=== PATIENT | female | born 1955 | race Caucasian/White ===

== ENCOUNTER 2016-04-27 23:37 | Inpatient (IN) | payer OTHER ==
[~2016-04-27] VITALS: Ht 167.6 cm; Wt 116.6 kg
[~2016-04-27 23:37] MED LIST: FERR1TAB44 PO; PANT40TA2 PO; QUET25TA PO
[2016-04-28] VITALS (17 sets, daily range): BP systolic 103–157; BP diastolic 51–89
[2016-04-28 04:04] LABS: BASOPHILS % (AUTO) 0.2 % (0.0-2.0); DIFF TOTAL % 100 %; EOSINOPHILS # (AUTO) 0.2 /CMM (0.0-0.7); EOSINOPHILS % (AUTO) 2.1 % (0.0-6.0); HEMATOCRIT 22 % (33-45); LYMPHOCYTES # (AUTO) 1.6 /CMM (0.8-4.8); LYMPHOCYTES % (AUTO) 14.4 % (20.0-44.0); MEAN CORPUSCULAR HEMOGLOBIN 17 PG (26.0-33.0); MEAN CORPUSCULAR HGB CONC 29 g/dl (31.0-36.0); MEAN CORPUSCULAR VOLUME 60 fL (82-100); MONOCYTES # (AUTO) 1.2 /CMM (0.1-1.30); MONOCYTES % (AUTO) 10.3 % (2.0-12.0); NEUTROPHILS # (AUTO) 8.2 /CMM (1.8-8.9); PLATELET COUNT (AUTO) 297 /CMM (150-450); RED BLOOD CELL COUNT(AUTO) 3.62 MIL/uL (4.0-5.2); WHITE BLOOD COUNT (AUTO) 11.3 K/uL (4.3-11.0)
[2016-04-28 04:14] LABS: HEMOGLOBIN 6.2 g/dL (11.5-14.8)
[2016-04-28 04:17] LABS: CALCIUM, SERUM 7.7 mg/dL (8.5-10.1); CREATININE 0.7 mg/dL (0.6-1.3); POTASSIUM 3.6 mmol/L (3.5-5.1)
[2016-04-28] MEDS ORDERED: PANTOPRAZOLE 80 MG in IV NS 0.9% 500 ML IV ONE (04:30)
[2016-04-28] MEDS ORDERED: PANTOPRAZOLE 80 MG in IV NS 0.9% 100 ML IV ONE (04:30)
[2016-04-28 04:36] LABS: INR 1.04 (0.87-1.13); PROTHROMBIN TIME 11.2 SECS (9.5-12.7)
[2016-04-28] MEDS ORDERED: PANTOPRAZOLE 40 MG VIAL ONE ×2 (04:59→05:05)
[2016-04-28] MEDS ORDERED: IV NS 0.9% 100 ML IV ONE (05:00)
[2016-04-28] MEDS ORDERED: IV SET PRIMARY 1 EA INFUS.SET MC ONE (05:00)
[2016-04-28] MEDS ORDERED: IV NS 0.9% 1,000 ML IV PRN (05:01)
[2016-04-28] MEDS ORDERED: IV SET PRIMARY PUMP SET 1 EA INFUS.SET MC ONE (05:05)
[2016-04-28] MEDS ORDERED: IV NS 0.9% 500 ML IV ONE (05:05)
[2016-04-28] MEDS ORDERED: ZOLPIDEM TARTRATE 5 MG TABLET PO PRN (05:30)
[2016-04-28] MEDS ORDERED: MAG HYDROX/AL HYDROX/SIMETH 30 ML UDC PO PRN (05:30)
[2016-04-28] MEDS ORDERED: MORPHINE SULFATE INJ 2 MG/ML DISP.SYRIN IV PRN (05:30)
[2016-04-28] MEDS ORDERED: Z GUARD REMEDY 2 OZ OINT TP PRN (05:30)
[2016-04-28] MEDS ORDERED: ACETAMINOPHEN 325 MG TABLET PO PRN (05:30)
[2016-04-28] MEDS ORDERED: ONDANSETRON HCL/PF 4 MG/2 ML VIAL IVP PRN (05:30)
[2016-04-28] MEDS ORDERED: HYDROCODONE/APAP 5/325MG 1 EACH TABLET PO PRN (05:30)
[2016-04-28] MEDS ORDERED: MAGNESIUM HYDROXIDE 30 ML UDC PO PRN (05:30)
[2016-04-28 05:35] LABS: IRON, SERUM 13 ug/dl (50-175); PERCENT SATURATION 4 % (14-33); TOTAL IRON BINDING CAPACITY 342 ug/dl (250-450)
[2016-04-28 05:51] LABS: ANISOCYTOSIS 2+; BASOPHILS % (MANUAL) 0 % (0.0-2.0); EOSINOPHILS % (MANUAL) 2 % (0-4); HYPOCHROMASIA 3+; LYMPHOCYTES % (MANUAL) 8 % (16-48); MICROCYTOSIS 3+; OVALOCYTES 1+; PLATELET ESTIMATE ADEQUATE; TEAR DROP CELLS 1+
[2016-04-28 05:52] LABS: STOMATOCYTES 1+
[2016-04-28] MEDS ORDERED: FUROSEMIDE 20 MG/2 ML VIAL IV PRN (08:00)
[2016-04-28] MEDS: PANTOPRAZOLE 40 MG VIAL IV SCH ×2 (08:57→17:28)
[2016-04-28] MEDS: FERROUS SULFATE (325 MG) 325 MG/TAB TABLET PO SCH (08:57)
[2016-04-28] MEDS ORDERED: BLOOD IV SET 1 EA INFUS.SET MC ONE ×3 (09:36→20:57)
[2016-04-28] MEDS ORDERED: IV NS 0.9% 250 ML IV ONE (09:37)
[2016-04-28] MEDS ORDERED: QUETIAPINE FUMARATE 25 MG TABLET PO SCH (22:00)
[2016-04-29] VITALS (14 sets, daily range): BP systolic 108–149; BP diastolic 60–87
[2016-04-29] MEDS ORDERED: IV SET PRIMARY PUMP SET 1 EA INFUS.SET MC ONE (03:59)
[2016-04-29] MEDS ORDERED: SECONDARY IV SET 1 EA INFUS.SET MC ONE (03:59)
[2016-04-29 06:55] LABS: BASOPHILS % (AUTO) 0.2 % (0.0-2.0); DIFF TOTAL % 100 %; EOSINOPHILS # (AUTO) 0.2 /CMM (0.0-0.7); EOSINOPHILS % (AUTO) 2.8 % (0.0-6.0); HEMATOCRIT 30 % (33-45); HEMOGLOBIN 9.1 g/dL (11.5-14.8); LYMPHOCYTES # (AUTO) 1.2 /CMM (0.8-4.8); LYMPHOCYTES % (AUTO) 13.2 % (20.0-44.0); MEAN CORPUSCULAR HEMOGLOBIN 21 PG (26.0-33.0); MEAN CORPUSCULAR HGB CONC 30 g/dl (31.0-36.0); MEAN CORPUSCULAR VOLUME 69 fL (82-100); MONOCYTES # (AUTO) 0.8 /CMM (0.1-1.30); MONOCYTES % (AUTO) 8.6 % (2.0-12.0); NEUTROPHILS # (AUTO) 6.7 /CMM (1.8-8.9); NEUTROPHILS % (AUTO) 75.2 % (43.0-81.0); PLATELET COUNT (AUTO) 241 /CMM (150-450); RED BLOOD CELL COUNT(AUTO) 4.42 MIL/uL (4.0-5.2); WHITE BLOOD COUNT (AUTO) 8.9 K/uL (4.3-11.0)
[2016-04-29 07:08] LABS: CREATININE 0.5 mg/dL (0.6-1.3); PHOSPHORUS 4.5 mg/dL (2.5-4.9); POTASSIUM 3.8 mmol/L (3.5-5.1)
[2016-04-29] MEDS: FERROUS SULFATE (325 MG) 325 MG/TAB TABLET PO SCH (09:00)
[2016-04-29] MEDS: PANTOPRAZOLE 40 MG VIAL IV SCH (10:48)
== END 2016-04-29 15:30 | disposition home or self-care (01) | DRG 253 ==
LOC: ER 23:37 → MED 04-28 05:09 → TELE 04-28 05:19 → MED 04-28 09:36
PROVIDERS: ADMIT Family Medicine; ATTEND Family Medicine
DX: K31.811 Angiodysplasia of stomach and duodenum with bleeding (principal); E44.0 Moderate protein-calorie malnutrition; Z68.41 Body mass index [BMI] 40.0-44.9, adult; D62 Acute posthemorrhagic anemia; E66.01 Morbid (severe) obesity due to excess calories; I10 Essential (primary) hypertension; J44.9 Chronic obstructive pulmonary disease, unspecified; K21.9 Gastro-esophageal reflux disease without esophagitis; D72.829 Elevated white blood cell count, unspecified; F20.0 Paranoid schizophrenia; F31.9 Bipolar disorder, unspecified; M81.0 Age-related osteoporosis without current pathological fracture; Z59.0 Homelessness
CPT/HCPCS: 36415; 80048-TC; 82728-TC; 82746; 83540-TC; 83735-TC; 84100-TC; 85025-TC; 85652-TC; 85730-TC; 86850-TC; 86901; 86921-TC; 87081-TC; A4606; C9113; J7030; J7040; J7050; P9016-BL; P9017-BL; Z7610

== ENCOUNTER 2016-05-13 22:27 | Inpatient (IN) | payer OTHER ==
[~2016-05-13] VITALS: Ht 162.6 cm; Wt 72.6 kg
[2016-05-13 22:55] LABS: BASOPHILS # (AUTO) 0.1 /CMM (0.0-0.2); BASOPHILS % (AUTO) 0.5 % (0.0-2.0); DIFF TOTAL % 100 %; EOSINOPHILS # (AUTO) 0.2 /CMM (0.0-0.7); EOSINOPHILS % (AUTO) 1.3 % (0.0-6.0); HEMATOCRIT 33 % (33-45); MEAN CORPUSCULAR HEMOGLOBIN 20 PG (26.0-33.0); MEAN CORPUSCULAR HGB CONC 30 g/dl (31.0-36.0); MEAN CORPUSCULAR VOLUME 67 fL (82-100); MONOCYTES # (AUTO) 0.7 /CMM (0.1-1.30); MONOCYTES % (AUTO) 5.8 % (2.0-12.0); NEUTROPHILS # (AUTO) 8.7 /CMM (1.8-8.9); NEUTROPHILS % (AUTO) 75.4 % (43.0-81.0); PLATELET COUNT (AUTO) 392 /CMM (150-450); RED BLOOD CELL COUNT(AUTO) 5.02 MIL/uL (4.0-5.2); WHITE BLOOD COUNT (AUTO) 11.5 K/uL (4.3-11.0)
[2016-05-13] MEDS ORDERED: IV NS 0.9% 1,000 ML BAG IV ONE (23:00)
[2016-05-13] MEDS ORDERED: IV NS 0.9% 1,000 ML ONE (23:03)
[2016-05-13] MEDS ORDERED: IV SET PRIMARY 1 EA INFUS.SET MC ONE (23:03)
[2016-05-13 23:06] LABS: ANION GAP 11 (5-14); CALCIUM, SERUM 8.1 mg/dL (8.5-10.1); CARBON DIOXIDE 31 mmol/L (21-32); CHLORIDE 104 mmol/L (98-107); CREATININE 0.6 mg/dL (0.6-1.3); GFR 103 mL/min (>60); GLUCOSE 91 mg/dL (74-106); POTASSIUM 3.6 mmol/L (3.5-5.1); SODIUM SERUM 142 mmol/L (136-145); UREA NITROGEN, BLOOD 12 mg/dL (7-18)
[2016-05-13 23:11] LABS: TROPONIN I < 0.017 ng/mL (0.00-0.056)
[2016-05-13 23:17] LABS: ALANINE AMINOTRANSFERASE 17 U/L (12-78); ALBUMIN 3.8 g/dL (3.4-5.0); ASPARTATE AMINOTRANSFERASE 16 U/L (15-37); BILIRUBIN,DIRECT 0.1 mg/dL (0.0-0.2); BILIRUBIN,TOTAL 0.5 mg/dL (0.2-1.0); INDIRECT BILIRUBIN 0.4 mg/dL (0.0-1.1); INR 0.99 (0.87-1.13); PROTHROMBIN TIME 10.7 SECS (9.5-12.7); TOTAL PROTEIN, SERUM 7.7 g/dL (6.4-8.2)
[2016-05-13] MEDS ORDERED: ASPIRIN 325 MG TABLET PO ONE (23:30)
[2016-05-14] MEDS ORDERED: ASPIRIN 325 MG TABLET ONE (00:04)
[2016-05-14] MEDS ORDERED: ONDANSETRON HCL/PF 4 MG/2 ML VIAL IVP PRN (00:30)
[2016-05-14] MEDS ORDERED: Z GUARD REMEDY 2 OZ OINT TP PRN (00:30)
[2016-05-14] MEDS ORDERED: ACETAMINOPHEN 325 MG TABLET PO PRN (00:30)
[2016-05-14] MEDS ORDERED: MORPHINE SULFATE INJ 2 MG/ML DISP.SYRIN IV PRN (00:30)
[2016-05-14] MEDS ORDERED: MAG HYDROX/AL HYDROX/SIMETH 30 ML UDC PO PRN (00:30)
[2016-05-14] MEDS ORDERED: ZOLPIDEM TARTRATE 5 MG TABLET PO PRN ×2 (00:30→22:00)
[2016-05-14] MEDS ORDERED: LORAZEPAM INJ 2 MG/ML VIAL IV PRN (00:30)
[2016-05-14] MEDS ORDERED: MAGNESIUM HYDROXIDE 30 ML UDC PO PRN (00:30)
[2016-05-14] MEDS ORDERED: HYDROCODONE/APAP 5/325MG 1 EACH TABLET PO PRN (00:30)
[2016-05-14 01:00] VITALS: BP 149/87
[2016-05-14] MEDS ORDERED: IV NS 0.9% 1,000 ML ONE (01:37)
[2016-05-14] MEDS ORDERED: IV SET PRIMARY PUMP SET 1 EA INFUS.SET MC ONE (01:37)
[2016-05-14] MEDS: IV NS 0.9% 1,000 ML IV PRN (01:52)
[2016-05-14 04:00] VITALS: BP 134/78
[2016-05-14] MEDS: PANTOPRAZOLE 40 MG TABLET.DR PO SCH ×3 (07:30→16:39)
[2016-05-14 08:00] VITALS: BP 145/84
[2016-05-14] MEDS: FERROUS SULFATE (325 MG) 325 MG/TAB TABLET PO SCH (08:47)
[2016-05-14 12:00] VITALS: BP 147/76
[2016-05-14] MEDS ORDERED: SECONDARY IV SET 1 EA INFUS.SET MC ONE (14:25)
[2016-05-14] MEDS: SOD FERRIC GLUC 125 MG in IV NS 0.9% 100 ML IV SCH (14:56)
[2016-05-14] MEDS ORDERED: HYDROCODONE BIT/HOMATROPINE 5 ML UDC PO PRN (15:00)
[2016-05-14] MEDS: AZITHROMYCIN 250 MG TABLET PO SCH (15:18)
[2016-05-14 16:00] VITALS: BP 135/72
[2016-05-14 20:00] VITALS: BP 140/69
[2016-05-14] MEDS: QUETIAPINE FUMARATE 25 MG TABLET PO SCH (22:16)
[2016-05-15] VITALS: BP 146/79
[2016-05-15 04:00] VITALS: BP 149/86
[2016-05-15 07:09] LABS: BASOPHILS % (AUTO) 0.1 % (0.0-2.0); DIFF TOTAL % 100 %; EOSINOPHILS # (AUTO) 0.1 /CMM (0.0-0.7); EOSINOPHILS % (AUTO) 1.5 % (0.0-6.0); HEMATOCRIT 28 % (33-45); HEMOGLOBIN 8.5 g/dL (11.5-14.8); LYMPHOCYTES # (AUTO) 1.3 /CMM (0.8-4.8); LYMPHOCYTES % (AUTO) 13.8 % (20.0-44.0); MEAN CORPUSCULAR HEMOGLOBIN 21 PG (26.0-33.0); MEAN CORPUSCULAR HGB CONC 30 g/dl (31.0-36.0); MEAN CORPUSCULAR VOLUME 67 fL (82-100); MONOCYTES # (AUTO) 0.8 /CMM (0.1-1.30); MONOCYTES % (AUTO) 8.2 % (2.0-12.0); NEUTROPHILS # (AUTO) 7.4 /CMM (1.8-8.9); NEUTROPHILS % (AUTO) 76.4 % (43.0-81.0); PLATELET COUNT (AUTO) 270 /CMM (150-450); RED BLOOD CELL COUNT(AUTO) 4.15 MIL/uL (4.0-5.2); WHITE BLOOD COUNT (AUTO) 9.7 K/uL (4.3-11.0)
[2016-05-15 07:31] LABS: CALCIUM, SERUM 7.8 mg/dL (8.5-10.1); CREATININE 0.4 mg/dL (0.6-1.3); PHOSPHORUS 3.8 mg/dL (2.5-4.9); POTASSIUM 3.4 mmol/L (3.5-5.1)
[2016-05-15 08:00] VITALS: BP 170/93
[2016-05-15] MEDS: PANTOPRAZOLE 40 MG TABLET.DR PO SCH ×2 (08:18→17:50)
[2016-05-15] MEDS: FERROUS SULFATE (325 MG) 325 MG/TAB TABLET PO SCH (08:18)
[2016-05-15] MEDS: IV NS 0.9% 1,000 ML IV PRN (09:24)
[2016-05-15 12:00] VITALS: BP 141/80
[2016-05-15] MEDS: LOSARTAN POTASSIUM 50 MG TABLET PO SCH (12:00)
[2016-05-15] MEDS ORDERED: POTASSIUM CHLORIDE 20 MEQ TAB.PRT.SR PO SCH (13:00)
[2016-05-15] MEDS: AZITHROMYCIN 250 MG TABLET PO SCH (14:06)
[2016-05-15 16:00] VITALS: BP 151/87
[2016-05-15] MEDS: SOD FERRIC GLUC 125 MG in IV NS 0.9% 100 ML IV SCH (16:30)
[2016-05-15 20:00] VITALS: BP 133/79
[2016-05-15] MEDS: QUETIAPINE FUMARATE 25 MG TABLET PO SCH (21:31)
[2016-05-16] VITALS: BP 131/61
[2016-05-16 04:00] VITALS: BP 129/70
[2016-05-16] MEDS: IV NS 0.9% 1,000 ML IV PRN (04:30)
[2016-05-16 07:31] LABS: DIFF TOTAL % 100 %; EOSINOPHILS # (AUTO) 0.1 /CMM (0.0-0.7); EOSINOPHILS % (AUTO) 1.2 % (0.0-6.0); HEMATOCRIT 28 % (33-45); HEMOGLOBIN 8.6 g/dL (11.5-14.8); LYMPHOCYTES # (AUTO) 1.4 /CMM (0.8-4.8); MEAN CORPUSCULAR HEMOGLOBIN 21 PG (26.0-33.0); MEAN CORPUSCULAR HGB CONC 30 g/dl (31.0-36.0); MEAN CORPUSCULAR VOLUME 68 fL (82-100); MONOCYTES # (AUTO) 0.7 /CMM (0.1-1.30); MONOCYTES % (AUTO) 7.8 % (2.0-12.0); NEUTROPHILS # (AUTO) 6.5 /CMM (1.8-8.9); PLATELET COUNT (AUTO) 257 /CMM (150-450); RED BLOOD CELL COUNT(AUTO) 4.18 MIL/uL (4.0-5.2); WHITE BLOOD COUNT (AUTO) 8.6 K/uL (4.3-11.0)
[2016-05-16 07:44] LABS: CALCIUM, SERUM 8.1 mg/dL (8.5-10.1); CREATININE 0.4 mg/dL (0.6-1.3); POTASSIUM 3.6 mmol/L (3.5-5.1)
[2016-05-16 08:00] VITALS: BP 127/84
[2016-05-16] MEDS: LOSARTAN POTASSIUM 50 MG TABLET PO SCH (08:49)
[2016-05-16] MEDS: PANTOPRAZOLE 40 MG TABLET.DR PO SCH ×2 (08:49→16:34)
[2016-05-16] MEDS: FERROUS SULFATE (325 MG) 325 MG/TAB TABLET PO SCH (08:49)
[2016-05-16] MEDS: AZITHROMYCIN 250 MG TABLET PO SCH (14:13)
[2016-05-16] MEDS ORDERED: FUROSEMIDE 20 MG/2 ML VIAL IV SCH (15:00)
[2016-05-16] MEDS ORDERED: POTASSIUM CHLORIDE 20 MEQ TAB.PRT.SR PO ONE (15:00)
[2016-05-16] MEDS: SOD FERRIC GLUC 125 MG in IV NS 0.9% 100 ML IV SCH (15:23)
[2016-05-16 16:00] VITALS: BP 139/84
[2016-05-16 20:00] VITALS: BP 125/78
[2016-05-16 21:00] VITALS: BP 125/78
[2016-05-16] MEDS: QUETIAPINE FUMARATE 25 MG TABLET PO SCH (21:30)
[2016-05-17 04:00] VITALS: BP 121/80
[2016-05-17 08:00] VITALS: BP 143/94
[2016-05-17] MEDS: LOSARTAN POTASSIUM 50 MG TABLET PO SCH (09:31)
[2016-05-17] MEDS: PANTOPRAZOLE 40 MG TABLET.DR PO SCH ×2 (09:31→17:00)
[2016-05-17] MEDS: FERROUS SULFATE (325 MG) 325 MG/TAB TABLET PO SCH (09:31)
[2016-05-17] MEDS: SOD FERRIC GLUC 125 MG in IV NS 0.9% 100 ML IV SCH (15:18)
[2016-05-17] MEDS: AZITHROMYCIN 250 MG TABLET PO SCH (15:18)
[2016-05-17 16:00] VITALS: BP 142/91
== END 2016-05-17 18:30 | disposition home or self-care (01) | DRG 194 ==
LOC: ER 22:27 → TELE1 05-14 00:08 → MEDSG1 05-16 10:33
PROVIDERS: ADMIT Internal Medicine; ATTEND Internal Medicine
DX: I11.0 Hypertensive heart disease with heart failure (principal); J18.9 Pneumonia, unspecified organism; I50.33 Acute on chronic diastolic (congestive) heart failure; E66.01 Morbid (severe) obesity due to excess calories; I10 Essential (primary) hypertension; D64.9 Anemia, unspecified; J20.9 Acute bronchitis, unspecified; Q27.33 Arteriovenous malformation of digestive system vessel; I25.10 Atherosclerotic heart disease of native coronary artery without angina pectoris; K21.9 Gastro-esophageal reflux disease without esophagitis; M81.0 Age-related osteoporosis without current pathological fracture; F31.9 Bipolar disorder, unspecified; F20.9 Schizophrenia, unspecified
CPT/HCPCS: 36415; 71010-TC; 80048-TC; 80076-TC; 83735-TC; 83880; 84100-TC; 84484-TC; 85025-TC; 85610-TC; 86850-TC; 86901; 87070-TC; 87081-TC; A4606; J1940; J2916; J7030; Z7610

== ENCOUNTER 2016-09-03 11:55 | Emergency (ER) | payer OTHER ==
[~2016-09-03] VITALS: Ht 165.1 cm; Wt 93.0 kg
--- NOTE | 2016-09-03 11:55 | NUR ---
bb self for : "I FEEL SICK, I HAVE LOW BLOOD AND IRON". nad noted. pt aao x4, amb with steady gait. rr even and unlabored. continue to monitor. md at bedside for eval.
[2016-09-03] MEDS ORDERED: PANTOPRAZOLE 40 MG VIAL IV ONE (12:30)
[2016-09-03] MEDS ORDERED: IV NS 0.9% 1,000 ML BAG IV ONE (12:30)
[2016-09-03] MEDS ORDERED: ONDANSETRON HCL/PF 4 MG/2 ML VIAL IVP ONE (12:30)
[2016-09-03] MEDS ORDERED: IV NS 0.9% 1,000 ML ONE (12:43)
[2016-09-03] MEDS ORDERED: IV SET PRIMARY 1 EA INFUS.SET MC ONE (12:43)
[2016-09-03] MEDS ORDERED: ONDANSETRON HCL/PF 4 MG/2 ML VIAL ONE (12:43)
[2016-09-03] MEDS ORDERED: PANTOPRAZOLE 40 MG VIAL ONE (12:43)
[2016-09-03 12:54] LABS: CALCIUM, SERUM 8.3 mg/dL (8.5-10.1); CREATININE 0.6 mg/dL (0.6-1.3); POTASSIUM 2.9 mmol/L (3.5-5.1)
[2016-09-03 12:55] LABS: BASOPHILS # (AUTO) 0.2 /CMM (0.0-0.2); BASOPHILS % (AUTO) 4.2 % (0.0-2.0); EOSINOPHILS # (AUTO) 0.1 /CMM (0.0-0.7); EOSINOPHILS % (AUTO) 1.9 % (0.0-6.0); HEMATOCRIT 30 % (33-45); LYMPHOCYTES # (AUTO) 1.3 /CMM (0.8-4.8); LYMPHOCYTES % (AUTO) 22.1 % (20.0-44.0); MEAN CORPUSCULAR HEMOGLOBIN 21 PG (26.0-33.0); MEAN CORPUSCULAR HGB CONC 30 g/dl (31.0-36.0); MEAN CORPUSCULAR VOLUME 69 fL (82-100); MONOCYTES # (AUTO) 0.5 /CMM (0.1-1.30); MONOCYTES % (AUTO) 8.8 % (2.0-12.0); NEUTROPHILS # (AUTO) 3.6 /CMM (1.8-8.9); PLATELET COUNT (AUTO) 271 /CMM (150-450); RDW COEFFICIENT OF VARIATION 20.2 (11.5-15.0); RED BLOOD CELL COUNT(AUTO) 4.31 MIL/uL (4.0-5.2); WHITE BLOOD COUNT (AUTO) 5.7 K/uL (4.3-11.0)
[2016-09-03 12:59] LABS: INR 1.06 (0.87-1.13)
[2016-09-03 13:00] LABS: ALBUMIN 3.9 g/dL (3.4-5.0); BILIRUBIN,DIRECT 0.1 mg/dL (0.0-0.2); BILIRUBIN,TOTAL 0.5 mg/dL (0.2-1.0); TOTAL PROTEIN, SERUM 6.9 g/dL (6.4-8.2)
--- NOTE | 2016-09-03 13:15 | NUR ---
PAGED DR HARMON
[2016-09-03 13:55] VITALS: BP 151/69
[2016-09-03 15:13] LABS: BAND % (MANUAL) 1 % (0.0-5.0); EOSINOPHILS % (MANUAL) 2 % (0-4); LYMPHOCYTES % (MANUAL) 28 % (16-48); MONOCYTES % (MANUAL) 11 % (0-11.0); NEUTROPHILS % (MANUAL) 58 (42-76); PLATELET ESTIMATE ADEQUATE
[2016-09-03 15:14] LABS: ANISOCYTOSIS 2+; HYPOCHROMASIA 2+; OVALOCYTES 1+
== END 2016-09-03 13:56 | disposition left against medical advice (07) ==
LOC: ER 11:58
DX: K92.2 Gastrointestinal hemorrhage, unspecified (principal); D64.9 Anemia, unspecified; I10 Essential (primary) hypertension; M81.0 Age-related osteoporosis without current pathological fracture; K92.0 Hematemesis; F17.210 Nicotine dependence, cigarettes, uncomplicated
CPT/HCPCS: 36415; 80048; 80076; 85025; 85730; 86850; 96361; 96374; 96375; 99284; A4606; C9113; J2405; J7030; Z7610

== ENCOUNTER 2016-09-06 02:36 | Inpatient (IN) | payer OTHER ==
[~2016-09-06] VITALS: Ht 172.7 cm; Wt 88.5 kg
[2016-09-06] MEDS ORDERED: PANTOPRAZOLE 80 MG in IV NS 0.9% 100 ML IV ONE (04:30)
[2016-09-06] MEDS ORDERED: ONDANSETRON HCL/PF 4 MG/2 ML VIAL IVP ONE (04:30)
[2016-09-06] MEDS ORDERED: IV NS 0.9% 1,000 ML BAG IV ONE (04:30)
[2016-09-06] MEDS ORDERED: IV NS 0.9% 1,000 ML ONE (04:49)
[2016-09-06] MEDS ORDERED: IV SET PRIMARY 1 EA INFUS.SET MC ONE (04:49)
[2016-09-06] MEDS ORDERED: ONDANSETRON HCL/PF 4 MG/2 ML VIAL ONE (04:49)
[2016-09-06] MEDS ORDERED: PANTOPRAZOLE 40 MG VIAL ONE (04:49)
[2016-09-06] MEDS ORDERED: IV NS 0.9% 100 ML IV ONE (04:49)
--- NOTE | 2016-09-06 04:50 | NUR ---
PT PRESENTED TO THE ER WITH A C/O ABD PAIN. PT STATED THAT SHE HAS HAD AVERY BLOOD IN HER STOOL. PT STATED THAT SHE TAKE IRON VITAMINS AND HAS DARK STOOL. PT IS ON THE MONITOR AND CONTINUOUS PULSE OX.
[2016-09-06 04:59] LABS: BASOPHILS % (AUTO) 0.6 % (0.0-2.0); EOSINOPHILS # (AUTO) 0.1 /CMM (0.0-0.7); EOSINOPHILS % (AUTO) 2.1 % (0.0-6.0); HEMATOCRIT 29 % (33-45); HEMOGLOBIN 8.8 g/dL (11.5-14.8); LYMPHOCYTES # (AUTO) 1.4 /CMM (0.8-4.8); LYMPHOCYTES % (AUTO) 27.5 % (20.0-44.0); MEAN CORPUSCULAR HEMOGLOBIN 21 PG (26.0-33.0); MEAN CORPUSCULAR HGB CONC 30 g/dl (31.0-36.0); MEAN CORPUSCULAR VOLUME 68 fL (82-100); MONOCYTES # (AUTO) 0.6 /CMM (0.1-1.30); MONOCYTES % (AUTO) 11.1 % (2.0-12.0); NEUTROPHILS % (AUTO) 58.7 % (43.0-81.0); PLATELET COUNT (AUTO) 260 /CMM (150-450); RDW COEFFICIENT OF VARIATION 21.8 (11.5-15.0); RED BLOOD CELL COUNT(AUTO) 4.26 MIL/uL (4.0-5.2); WHITE BLOOD COUNT (AUTO) 5.2 K/uL (4.3-11.0)
[2016-09-06 05:19] LABS: ALBUMIN 3.6 g/dL (3.4-5.0); BILIRUBIN,DIRECT 0.1 mg/dL (0.0-0.2); BILIRUBIN,TOTAL 0.5 mg/dL (0.2-1.0); CALCIUM, SERUM 8.1 mg/dL (8.5-10.1); CREATININE 0.6 mg/dL (0.6-1.3); TOTAL PROTEIN, SERUM 6.4 g/dL (6.4-8.2)
[2016-09-06 05:23] LABS: POTASSIUM 2.8 mmol/L (3.5-5.1)
[2016-09-06 05:26] LABS: INR 1.03 (0.87-1.13)
[2016-09-06 05:38] LABS: BASOPHILS % (MANUAL) 1 % (0.0-2.0); LYMPHOCYTES % (MANUAL) 20 % (16-48); MONOCYTES % (MANUAL) 6 % (0-11.0); NEUTROPHILS % (MANUAL) 73 (42-76)
[2016-09-06 05:39] LABS: ANISOCYTOSIS 3+; HYPOCHROMASIA 2+
--- NOTE | 2016-09-06 05:39 | NUR ---
PT APPEARS TO BE RESTING COMFORTABLY WITH NO S/S OF PAIN OR DISTRESS.
--- NOTE | 2016-09-06 05:42 | NUR ---
PT AMBULATED TO THE BATHROOM. PT TO GIVE A URINE SAMPLE.
[2016-09-06] MEDS ORDERED: IV PREMIX D5 1/2NS + KCL 1,000 ML IV ONE ×2 (05:49→05:50)
[2016-09-06] MEDS ORDERED: IV SET PRIMARY PUMP SET 1 EA INFUS.SET MC ONE ×3 (05:50→10:46)
--- NOTE | 2016-09-06 06:07 | NUR ---
PT APPEARS TO BE RESTING COMFORTABLY. PT IS UNABLE TO GIVE A STOOL SAMPLE AT THIS TIME,
--- NOTE | 2016-09-06 06:30 | NUR ---
DR. HERNANDES PRESENTED PT TO DR. MCKEON.
--- NOTE | 2016-09-06 06:42 | NUR ---
PT'S O2 SAT DECREASED TO 89% ON RA. PT WAS PLACED ON 2.5L O2 VIA NC AND IS SATURATING AT 97%.
[2016-09-06] MEDS ORDERED: ONDANSETRON HCL/PF 4 MG/2 ML VIAL IVP PRN (07:00)
[2016-09-06] MEDS ORDERED: ZOLPIDEM TARTRATE 5 MG TABLET PO PRN (07:00)
[2016-09-06] MEDS ORDERED: ACETAMINOPHEN 325 MG TABLET PO PRN (07:00)
[2016-09-06] MEDS ORDERED: MAGNESIUM HYDROXIDE 30 ML UDC PO PRN (07:00)
[2016-09-06] MEDS ORDERED: MAG HYDROX/AL HYDROX/SIMETH 30 ML UDC PO PRN (07:00)
[2016-09-06] MEDS ORDERED: Z GUARD REMEDY 2 OZ OINT TP PRN (07:00)
--- NOTE | 2016-09-06 07:06 | NUR ---
PT APPEARS TO BE RESTING COMFORTABLY WITH NO S/S OF PAIN OR DISTRESS.
--- NOTE | 2016-09-06 07:20 | NUR ---
REPORT GIVEN TO GREG JACKSON FOR LEXY.
[2016-09-06] MEDS ORDERED: LOSA50TA3 PO (08:08)
--- NOTE | 2016-09-06 08:21 | NUR ---
REPORT GIVEN TO SERENITY 328-1 TELE.
--- NOTE | 2016-09-06 09:10 | NUR ---
GREG PEARSON NOTES PATIENT RECEIVED FROM ER. NO SOB OR DISTRESS NOTED. ALERT AND ORIENTED TIMES 1-2. IV INTACT AND PATENT. KEPT PATIENT CLEAN AND COMFORTABLE IN BED, CALL LIGHT WITHIN PATIENT REACH, WILL CONTINUE TO MONITOR ACCORDINGLY. Addendum: 09/06/16 at 1937 by SERENITY GARBER RN ALERT AND ORIENTED TIMES 4
[2016-09-06] MEDS ORDERED: SECONDARY IV SET 1 EA INFUS.SET MC ONE (10:40)
[2016-09-06] MEDS: PANTOPRAZOLE 40 MG VIAL IV SCH (10:52)
[2016-09-06] MEDS: POTASSIUM CL. PREMIX PERIPHER. 50 ML IV SCH ×6 (10:54→17:51)
[2016-09-06] MEDS: IV NS 0.9% 1,000 ML IV PRN (10:54)
[2016-09-06 12:37] LABS: FERRITIN 4 ng/mL (8-388); IRON, SERUM 13 ug/dl (50-175)
--- NOTE | 2016-09-06 13:00 | NUR ---
PATIENT IS ASLEEP WITH NO SOB OR DISTRESS NOTED. PATIENT DENIES ANY PAIN.
[2016-09-06 16:00] VITALS: BP 148/87
[2016-09-06 19:00] VITALS: BP 157/89
--- NOTE | 2016-09-06 19:33 | NUR ---
RN CLOSING NOTES ALL NEEDS PROVIDED, ATTENDED AND ANTICIPATED. KEPT PATIENT CLEAN AND COMFORTABLE IN BED, CALL LIGHT WITHIN PATIENT REACH , WILL CONTINUE TO MONITOR ACCORDINGLY. ENDORSED TO NEXT SHIFT RN TO CONTINUE CARE
--- NOTE | 2016-09-06 19:50 | NUR ---
MS GARZA INITIAL NOTES: RECEIVED REPORT FROM SERENITY GARZA,PT IN BED, AWAKE, A/O X3 ON ROOM AIR DENIES ANY PAIN OR DISCOMFORT AT THIS TIME. PT HAS LEFT HAND IV ACCESS PATENT AND FLUSHING WELL, INFUSING WITH NS AT 75ML/HR. PT INSTRUCTED ONLY TO HAVE CLEAR LIQUIDS, PT AGREE AND UNDERSTAND. SAFETY PRECAUTION FOR FALL INITIATED CALL LIGHT IN REACH, WILL CONTINUE TO MONITOR Addendum: 09/07/16 at 0347 by LULU MCMANUS RN correction of entry: left finger g 18, ns at 75ml/hr, not left hand
[2016-09-06 20:00] VITALS: BP 157/89
[2016-09-07] VITALS (10 sets, daily range): BP systolic 129–160; BP diastolic 77–99
[2016-09-07] MEDS: IV NS 0.9% 1,000 ML IV PRN (00:15)
--- NOTE | 2016-09-07 01:00 | NUR ---
ms rn notes: seen pt sleeping at this time, not in apparent distress
--- NOTE | 2016-09-07 06:32 | NUR ---
ms rn closing notes: pt in bed, awake, denies any pain or discomfort at this time, no sob noted, left finger iv access remains patent and flushing well, infusing with ns at 75ml/hr. no gi bleeding noted, or any other s/s/ of bleeding noted. vs remains stable, needs attended. will endorse to day rn for sukhdev.
[2016-09-07 07:14] LABS: BASOPHILS % (AUTO) 0.6 % (0.0-2.0); EOSINOPHILS # (AUTO) 0.1 /CMM (0.0-0.7); EOSINOPHILS % (AUTO) 2.5 % (0.0-6.0); HEMATOCRIT 29 % (33-45); HEMOGLOBIN 8.5 g/dL (11.5-14.8); LYMPHOCYTES # (AUTO) 1.2 /CMM (0.8-4.8); LYMPHOCYTES % (AUTO) 28.3 % (20.0-44.0); MEAN CORPUSCULAR HEMOGLOBIN 20 PG (26.0-33.0); MEAN CORPUSCULAR HGB CONC 30 g/dl (31.0-36.0); MEAN CORPUSCULAR VOLUME 69 fL (82-100); MONOCYTES # (AUTO) 0.5 /CMM (0.1-1.30); MONOCYTES % (AUTO) 12.6 % (2.0-12.0); NEUTROPHILS # (AUTO) 2.3 /CMM (1.8-8.9); PLATELET COUNT (AUTO) 213 /CMM (150-450); RDW COEFFICIENT OF VARIATION 21.5 (11.5-15.0); RED BLOOD CELL COUNT(AUTO) 4.15 MIL/uL (4.0-5.2); WHITE BLOOD COUNT (AUTO) 4.1 K/uL (4.3-11.0)
[2016-09-07 07:30] LABS: ALBUMIN 3.2 g/dL (3.4-5.0); BILIRUBIN,TOTAL 0.5 mg/dL (0.2-1.0); CALCIUM, SERUM 7.7 mg/dL (8.5-10.1); CREATININE 0.5 mg/dL (0.6-1.3); MAGNESIUM 1.6 mg/dL (1.8-2.4); PHOSPHORUS 4.1 mg/dL (2.5-4.9); POTASSIUM 3.6 mmol/L (3.5-5.1)
--- NOTE | 2016-09-07 07:40 | NUR ---
RN NOTES: PT IN BED, AWAKE, A/O X3 ON ROOM AIR DENIES ANY PAIN OR DISCOMFORT AT THIS TIME. PT HAS IV ACCESS PATENT AND FLUSHING WELL, INFUSING WITH NS AT 75ML/HR. PT INSTRUCTED ONLY TO HAVE CLEAR LIQUIDS. SAFETY PRECAUTION FOR FALL OBSERVED, CALL LIGHT IN REACH, WILL CONTINUE TO MONITOR
[2016-09-07 08:04] LABS: BAND % (MANUAL) 2 % (0.0-5.0); EOSINOPHILS % (MANUAL) 3 % (0-4); LYMPHOCYTES % (MANUAL) 20 % (16-48); MONOCYTES % (MANUAL) 10 % (0-11.0); NEUTROPHILS % (MANUAL) 65 (42-76); PLATELET ESTIMATE ADEQUATE
[2016-09-07 08:05] LABS: ANISOCYTOSIS 3+; HYPOCHROMASIA 2+
[2016-09-07] MEDS: PANTOPRAZOLE 40 MG VIAL IV SCH (08:26)
[2016-09-07] MEDS ORDERED: SECONDARY IV SET 1 EA INFUS.SET MC ONE (12:13)
[2016-09-07] MEDS: Magnesium 1GM/D5W 100ML PREMIX 100 ML IV SCH ×2 (12:17→13:27)
[2016-09-07] MEDS ORDERED: IV NS 0.9% 250 ML IV ONE (17:36)
--- NOTE | 2016-09-07 18:51 | NUR ---
RN NOTES PER DNP ORDERS PT TO BE DISCHARGED AFTER BLOOD TRANSFUSION PT MADE AWARE WITH NEED OF CONTINUED REINFORCEMENT, WILL CONTINUE TO MONITOR, NO ASE TO BLOOD TRANSFUSION NOTED AT THIS TIME
--- NOTE | 2016-09-07 18:53 | NUR ---
RN NOTES: PT IN BED, AWAKE, A/O X3 ON ROOM AIR DENIES ANY PAIN OR DISCOMFORT AT THIS TIME. PT HAS IV ACCESS PATENT, INTACT AND FLUSHING WELL,NO INFILTRATION NOTED AT THIS TIME. PT CONTINUES ON BLOOD TRANSFUSION WITH CONTINUED MONITORING. PT INSTRUCTED ONLY TO HAVE CLEAR LIQUIDS. SAFETY PRECAUTION FOR FALL OBSERVED, CALL LIGHT IN REACH, WILL CONTINUE TO MONITOR AND ENDORSE TO NEXT SHIFT FOR CONTINUITY OF CARE
--- NOTE | 2016-09-07 18:59 | NUR ---
RN NOTES PT NOTED MOVING ARM AROUND ALOT WHEN BLOOD PRESSURE MACHINE IS ATTEMPTING TO TAKE READING,INSTRUCTED PT OF IMPORTANCE OF MONITORING OF VS WHILE ON TRANSFUSION WILL CONTINUE TO MONITOR
--- NOTE | 2016-09-07 19:20 | NUR ---
MS RN OPENING NOTES: RECEIVED PT SITTING DOWN IN BED. PT IS RECEIVING 1 UNIT OF BLOOD. PT IS A/OX3. PT HAS IV ON L FINGER 18G. NO SIGNS OR SYMPTOMS OF DISTRESS AT THIS TIME. CALL LIGHT WITHIN PT'S REACH. BED KEPT IN LOCKED, LOWEST POSITION, AND SIDE RAILS X 2 UP. WILL CONTINUE TO MONITOR PT.
--- NOTE | 2016-09-07 21:25 | NUR ---
MS RN NOTES: SPOKE TO DR. MCKEON AND INFORMED HIM THAT PT IS STILL INFUSING WITH 1 UNIT OF BLOOD AND IS TO BE DONE BY [id number]. DR. MCKEON GAVE THE OKAY TO DISCHARGE IN THE MORNING.
--- NOTE | 2016-09-07 22:13 | NUR ---
MS RN NOTES: BLOOD TRANSFUSION COMPLETE. VITAL SIGNS STABLE. LATEST VITAL SIGNS: TEMP 97.1, BP 144/84 HR 71, PULSE OX 94%, RR 20. WILL CONTINUE TO MONITOR PT.
--- NOTE | 2016-09-08 07:20 | NUR ---
MS/RN AM NOTES RECEIVED PATIENT IN THE BED, AWAKE, ALERT, NO S/SX SOB, ON RA, O2 SATURATION 99%, NO DISTRESS, DENIES PAIN. IV PERIPHERAL LINE ON LEFT INDEX FINGER INTACT, PATENT. BED IN LOW POSITION 2 SR UP FOR SAFETY, NEEDS MET,WITH CALL LIGHT WITHIN EASY REACH. WILL CONTINUE TO MONITOR ACCORDINGLY
--- NOTE | 2016-09-08 07:36 | NUR ---
MS RN CLOSING NOTES: ALL NEEDS WERE ATTENDED TO ACCORDINGLY. PT IS AWAKE IN BED LAYING DOWN. PT IS A/O X3. PT IS TO BE DISCHARGED THIS AM. PT HAS IV ON L INDEX FINGER 18G AND IS PATENT AND INTACT. FLUIDS ARE INFUSING AT NS AT 75ML/HR. PT KEPT CLEAN, DRY, AND COMFORTABLE. CALL LIGHT WITHIN PT'S REACH. BED KEPT IN LOCKED, LOWEST POSITION, AND SIDE RAILS X 2 UP. NO SIGNS OR SYMPTOMS OF DISTRESS NOTED. ENDORSED TO AM NURSE FOR CONTINUITY OF CARE.
[2016-09-08 08:00] VITALS: BP 146/94
[2016-09-08] MEDS: PANTOPRAZOLE 40 MG VIAL IV SCH (09:23)
[2016-09-08 10:00] VITALS: BP 146/94
--- NOTE | 2016-09-08 10:48 | NUR ---
SS consult requested by Med/Surg EPHRAIM Shaw for homelessness. Per H&P report by Dr. Gonzalez, patient is a 61-year old female with a PMHx of HTN, GERD, GI bleed, gastritis, osteoporosis, and anemia. Patient is currently homeless. Pt was admitted to [facility] for Upper GI bleed. SW met with patient at bedside. She was alert and oriented x4. Her appearance was disheveled. She presented in a euthymic mood and her affect was congruent. She reported being homeless, but not want to share information related to her homelessness. Patient has a history of bipolar disorder. She refused to discuss substance use. However, patient requested resources for housing, substance use, mental health clinics, and food lugo. SW will provide the patient with all the requested resources. When asked about discharge plan, pt stated that a friend would pick her up today (09/08/16) at 5pm. Patient refused to provide contact information for the friend providing transportation. Also, patient refused to provide an address she would be going to. MISBAH will update case management regarding patient's discharge plan.
--- NOTE | 2016-09-08 11:50 | NUR ---
RN NOTES DR. SYDNIE JAMES AGREED TO CHANGE THE DIET FROM CLEAR TO REGULAR, PER PATIENT'S REQUEST. NOTED, CARRIED OUT
[2016-09-08 16:00] VITALS: BP 126/78
--- NOTE | 2016-09-08 18:00 | NUR ---
RN NOTES DISCHARGE INSTRUCTION GIVEN TO THE PATIENT, AWAITING FOR FRIEND TO COME AND PICK HER UP, ENCOURAGED TO F/U WITH PRIMARY PHYSICIAN WITHIN A WEEK, NO BELONGINGS, DINNER TOLERATED WELL, DISCHARGE PAPERS AND EXIT CARE PROVIDED.
== END 2016-09-08 18:55 | disposition home or self-care (01) | DRG 253 ==
LOC: ER 02:39 → MED 08:20
PROVIDERS: ADMIT Internal Medicine; ATTEND Internal Medicine
PROC: 30233N1 Transfusion of Nonautologous Red Blood Cells into Peripheral Vein, Percutaneous Approach (ICD-10-PCS; principal; 2016-09-07)
DX: K31.811 Angiodysplasia of stomach and duodenum with bleeding (principal); E46 Unspecified protein-calorie malnutrition; E66.01 Morbid (severe) obesity due to excess calories; D62 Acute posthemorrhagic anemia; I10 Essential (primary) hypertension; F17.200 Nicotine dependence, unspecified, uncomplicated; E87.6 Hypokalemia; K92.0 Hematemesis; K21.9 Gastro-esophageal reflux disease without esophagitis; Z59.0 Homelessness; F20.0 Paranoid schizophrenia; F31.9 Bipolar disorder, unspecified; M81.0 Age-related osteoporosis without current pathological fracture; Z91.14 Patient's other noncompliance with medication regimen; Z91.19 Patient's noncompliance with other medical treatment and regimen
CPT/HCPCS: 36415; 80048-TC; 80053-TC; 80061-TC; 80076-TC; 82306; 82728-TC; 83540-TC; 83690-TC; 83735-TC; 84100-TC; 85025-TC; 85045-TC; 85730-TC; 86850-TC; 86921-TC; 87081-TC; A4606; C9113; J2405; J3475; J3480; J3490; J7030; J7050; P9016-BL; Z7610

== ENCOUNTER 2016-10-01 12:55 | Inpatient (IN) | payer OTHER ==
[~2016-10-01] VITALS: Ht 167.6 cm; Wt 110.7 kg
[~2016-10-01 12:55] MED LIST changes: +LOSA50TA3 PO
--- NOTE | 2016-10-01 12:57 | NUR ---
PT AMBULATORY TO ER BED 09. C/O MIDSTERNAL CHEST PAIN W/ GENERALIZED WEAKNESS SINCE LAST NIGHT. GOWNED AND PLACED ON MONITOR. STABLE VITALS AUTO CLUB SAFETY PROGRAM COORDINATOR. AWAITING MD PETERS.
--- NOTE | 2016-10-01 13:22 | NUR ---
LORETTA TAVAREZ AT BEDSIDE FOR EVAL.
--- NOTE | 2016-10-01 13:35 | NUR ---
IV LINE STARTED BLOOD DRAWN AND SENT TO LAB.
[2016-10-01 13:40] LABS: BASOPHILS % (AUTO) 0.5 % (0.0-2.0); EOSINOPHILS # (AUTO) 0.1 /CMM (0.0-0.7); HEMATOCRIT 33 % (33-45); LYMPHOCYTES # (AUTO) 1.1 /CMM (0.8-4.8); LYMPHOCYTES % (AUTO) 21.7 % (20.0-44.0); MEAN CORPUSCULAR HEMOGLOBIN 21 PG (26.0-33.0); MEAN CORPUSCULAR HGB CONC 31 g/dl (31.0-36.0); MEAN CORPUSCULAR VOLUME 69 fL (82-100); MONOCYTES # (AUTO) 0.4 /CMM (0.1-1.30); MONOCYTES % (AUTO) 8.6 % (2.0-12.0); NEUTROPHILS # (AUTO) 3.5 /CMM (1.8-8.9); NEUTROPHILS % (AUTO) 67.2 % (43.0-81.0); PLATELET COUNT (AUTO) 296 /CMM (150-450); RDW COEFFICIENT OF VARIATION 20.1 (11.5-15.0); RED BLOOD CELL COUNT(AUTO) 4.71 MIL/uL (4.0-5.2); WHITE BLOOD COUNT (AUTO) 5.1 K/uL (4.3-11.0)
--- NOTE | 2016-10-01 13:45 | NUR ---
RADIOLOGY AT BEDSIDE FOR CHEST XRAY.
[2016-10-01 13:54] LABS: INR 1.02 (0.87-1.13); PROTHROMBIN TIME 10.6 SECS (9.5-12.7)
[2016-10-01 13:56] LABS: ALBUMIN 3.7 g/dL (3.4-5.0); BILIRUBIN,DIRECT 0.1 mg/dL (0.0-0.2); BILIRUBIN,TOTAL 0.3 mg/dL (0.2-1.0); CALCIUM, SERUM 8.6 mg/dL (8.5-10.1); CREATININE 0.8 mg/dL (0.6-1.3); POTASSIUM 3.1 mmol/L (3.5-5.1); TOTAL PROTEIN, SERUM 6.9 g/dL (6.4-8.2)
[2016-10-01 13:59] LABS: TROPONIN I 0.019 ng/mL (0.00-0.056)
[2016-10-01 14:18] LABS: BAND % (MANUAL) 1 % (0.0-5.0); EOSINOPHILS % (MANUAL) 2 % (0-4); LYMPHOCYTES % (MANUAL) 21 % (16-48); MONOCYTES % (MANUAL) 8 % (0-11.0); NEUTROPHILS % (MANUAL) 68 (42-76)
--- NOTE | 2016-10-01 16:28 | NUR ---
TRUCKSMITH AT BEDSIDE FOR REPEAT TROPONIN DRAW.
[2016-10-01] MEDS ORDERED: PANT40TA4 PO (17:45)
[2016-10-01] MEDS ORDERED: NITROGLYCERIN PACKET 1 GM PACKET TOP ONE (18:00)
[2016-10-01] MEDS ORDERED: ASPIRIN 325 MG TABLET PO ONE (18:00)
[2016-10-01] MEDS ORDERED: NITROGLYCERIN PACKET 1 GM PACKET ONE (18:14)
[2016-10-01] MEDS ORDERED: ASPIRIN 325 MG TABLET ONE (18:14)
--- NOTE | 2016-10-01 18:34 | NUR ---
REPAGED DR HARMON
[2016-10-01] MEDS ORDERED: POTASSIUM CHLORIDE 20 MEQ TAB.PRT.SR PO ONE (19:16)
--- NOTE | 2016-10-01 19:35 | NUR ---
REPORT GIVEN TO NURSE. PT AWAITING TRANSFER TO FLOOR.
--- NOTE | 2016-10-01 19:40 | NUR ---
DIRECTOR OF ADMISSIONS INITIAL NOTE RECEIVED REPORT FROM SUYAPA MITCHELL RN. PT ARRIVED VIA WHEELCHAIR, REQUESTING FOOD. PT IS AMBULATORY WITH STEADY GAIT. PT IS A/A/O X3. PT IS EXHIBITING SOME SADNESS DUE TO FRIENDS . LUNG SOUNDS CLEAR. O2 2L NC FOR CHEST PAIN. BOWEL SOUNDS PRESENT, CARDIAC DIET SANDWICHES PROVIDED. PULSES PRESENT. IV PATENT AND INTACT. BED IN LOW LOCKED POSITION. CALL LIGHT WITHIN REACH. WILL CONTINUE TO MONITOR.
[2016-10-01 20:00] VITALS: BP 162/102
[2016-10-01] MEDS ORDERED: ACETAMINOPHEN 325 MG TABLET PO PRN (20:30)
[2016-10-01] MEDS ORDERED: HYDROCODONE/APAP 5/325MG 1 EACH TABLET PO PRN (20:30)
[2016-10-01] MEDS ORDERED: ONDANSETRON HCL/PF 4 MG/2 ML VIAL IVP PRN (20:30)
[2016-10-01] MEDS ORDERED: Z GUARD REMEDY 2 OZ OINT TP PRN (20:30)
[2016-10-01] MEDS ORDERED: MAG HYDROX/AL HYDROX/SIMETH 30 ML UDC PO PRN (20:30)
[2016-10-01] MEDS ORDERED: MORPHINE SULFATE INJ 2 MG/ML DISP.SYRIN IV PRN (20:30)
[2016-10-01] MEDS ORDERED: ZOLPIDEM TARTRATE 5 MG TABLET PO PRN (20:30)
[2016-10-01] MEDS ORDERED: MAGNESIUM HYDROXIDE 30 ML UDC PO PRN (20:30)
[2016-10-01] MEDS: ENOXAPARIN SODIUM 40 MG/0.4 ML DISP.SYRIN SQ SCH (20:43)
[2016-10-01] MEDS: IV NS 0.9% 1,000 ML IV PRN (20:43)
[2016-10-01] MEDS: QUETIAPINE FUMARATE 100 MG TABLET PO SCH (21:41)
[2016-10-02] VITALS (7 sets, daily range): BP systolic 117–166; BP diastolic 65–97
[2016-10-02] MEDS ORDERED: POTASSIUM CHLORIDE 20 MEQ TAB.PRT.SR PO ONE ×2 (00:30→01:10)
--- NOTE | 2016-10-02 07:34 | NUR ---
COAL MINE INSPECTOR OPEN NOTES RECEIVED REPORT FROM SENIOR LIVING SALES COUNSELOR NURSE. PATIENT IS IN BED, ALERT AND ORIENTED TO NAME, TIME AND PLACE. WILL CONTINUE TO MONITOR AND ASSESS PATIENT
[2016-10-02 07:57] LABS: BASOPHILS % (AUTO) 0.5 % (0.0-2.0); EOSINOPHILS # (AUTO) 0.1 /CMM (0.0-0.7); EOSINOPHILS % (AUTO) 2.6 % (0.0-6.0); HEMATOCRIT 27 % (33-45); HEMOGLOBIN 8.6 g/dL (11.5-14.8); LYMPHOCYTES # (AUTO) 1.5 /CMM (0.8-4.8); LYMPHOCYTES % (AUTO) 28.4 % (20.0-44.0); MEAN CORPUSCULAR HEMOGLOBIN 22 PG (26.0-33.0); MEAN CORPUSCULAR HGB CONC 32 g/dl (31.0-36.0); MEAN CORPUSCULAR VOLUME 69 fL (82-100); MONOCYTES # (AUTO) 0.6 /CMM (0.1-1.30); MONOCYTES % (AUTO) 11.3 % (2.0-12.0); NEUTROPHILS # (AUTO) 2.9 /CMM (1.8-8.9); NEUTROPHILS % (AUTO) 57.2 % (43.0-81.0); PLATELET COUNT (AUTO) 343 /CMM (150-450); RDW COEFFICIENT OF VARIATION 21.5 (11.5-15.0); RED BLOOD CELL COUNT(AUTO) 3.96 MIL/uL (4.0-5.2); WHITE BLOOD COUNT (AUTO) 5.2 K/uL (4.3-11.0)
[2016-10-02 08:43] LABS: EOSINOPHILS % (MANUAL) 2 % (0-4); LYMPHOCYTES % (MANUAL) 29 % (16-48); MONOCYTES % (MANUAL) 9 % (0-11.0); NEUTROPHILS % (MANUAL) 60 (42-76)
[2016-10-02] MEDS ORDERED: POTASSIUM CHLORIDE 20 MEQ TAB.PRT.SR PO SCH (09:00)
[2016-10-02 09:01] LABS: CALCIUM, SERUM 8.4 mg/dL (8.5-10.1); CREATININE 0.4 mg/dL (0.6-1.3); MAGNESIUM 1.7 mg/dL (1.8-2.4); PHOSPHORUS 4.9 mg/dL (2.5-4.9); POTASSIUM 4.9 mmol/L (3.5-5.1)
[2016-10-02] MEDS: ASPIRIN 81 MG TAB.CHEW PO SCH (09:28)
[2016-10-02] MEDS: LOSARTAN POTASSIUM 50 MG TABLET PO SCH (09:29)
[2016-10-02] MEDS: PANTOPRAZOLE 40 MG TABLET.DR PO SCH (09:29)
[2016-10-02] MEDS: FERROUS SULFATE (325 MG) 325 MG/TAB TABLET PO SCH (09:29)
[2016-10-02] MEDS: IV NS 0.9% 1,000 ML IV PRN (10:30)
--- NOTE | 2016-10-02 12:44 | NUR ---
Social service consult requested by SUNG Galan for homelessness. Pt. was admitted to [facility] for chest pain and malnutrition. MISBAH met with pt. beside along with registered nurse hh case manager Satya. MISBAH is familiar with pt. from previous admissions. Pt. was last admitted to [facility] on September 06, 2016. Pt. is a 61-year old female who is alert and oriented x4. Pt's appearance was disheveled. Patient has a history of bipolar disorder. SW inquired pt. about her discharge plan, pt. stated she would like to be discharged to [address] [place] [address], [address] [phone]. Pt. will most likely need taxi transportation upon discharge to the aforementioned address. Pt. requested resources for housing, substance use, mental health clinics, and food lugo. SW will provide the patient with all the requested resources prior to discharge and have pt. sign Homeless patient waiver form. credit control manager is aware of the discharge plan.
--- NOTE | 2016-10-02 18:42 | NUR ---
CHILLER TENDER CLOSING NOTES PATIENT IS IN BED, ALERT AND ORIENTED TO NAME, PLACE AND TIME. BED IS IN LOW POSITION, LOCKED, AND TWO SIDE RAILS ARE UP. NO SIGNS AND SYMPTOMS OF DISTRESS. DENIED PAIN. IV SITE IS INTACT AND PATENT. PATIENT KEPT CLEAN AND DRY. ALL NEEDS ANTICIPATED. WILL ENDORSE TO GRAVEDIGGER NURSE.
--- NOTE | 2016-10-02 19:30 | NUR ---
1930- received pt. awake on bed; alert and oriented x 3; on nasal cannula 2L/min noted; on cardiac diet as ordered; on cardiac monitoring showing sinus rhythm; with IVF NSS1L x 75 cc/hr via left wrist; siderails x 2 are up; bed alarm is on; call light is within reach;
[2016-10-02] MEDS: QUETIAPINE FUMARATE 100 MG TABLET PO SCH (21:04)
[2016-10-02] MEDS: ENOXAPARIN SODIUM 40 MG/0.4 ML DISP.SYRIN SQ SCH (21:07)
[2016-10-02] MEDS ORDERED: ATORVASTATIN 40 MG TABLET PO SCH (22:00)
[2016-10-03] VITALS (7 sets, daily range): BP systolic 107–166; BP diastolic 53–90
--- NOTE | 2016-10-03 | NUR ---
CHANGE OF ASSIGNMENT REPORT; PT ON THE BED ASLEEP WITHOUT ANY DISTRESS , SHOWING SR WITH HR 78 ON TELE MONITOR, CONTINENT TO BOWEL/BLADDER . CALL LIGHT WITHIN REACH. WILL CONTINUE TO MONITOR .
[2016-10-03] MEDS: IV NS 0.9% 1,000 ML IV PRN (03:21)
[2016-10-03 07:14] LABS: BASOPHILS % (AUTO) 0.3 % (0.0-2.0); EOSINOPHILS # (AUTO) 0.2 /CMM (0.0-0.7); EOSINOPHILS % (AUTO) 4.2 % (0.0-6.0); HEMATOCRIT 28 % (33-45); HEMOGLOBIN 8.5 g/dL (11.5-14.8); LYMPHOCYTES # (AUTO) 1.5 /CMM (0.8-4.8); LYMPHOCYTES % (AUTO) 27.9 % (20.0-44.0); MEAN CORPUSCULAR HEMOGLOBIN 22 PG (26.0-33.0); MEAN CORPUSCULAR HGB CONC 31 g/dl (31.0-36.0); MEAN CORPUSCULAR VOLUME 70 fL (82-100); MONOCYTES # (AUTO) 0.5 /CMM (0.1-1.30); MONOCYTES % (AUTO) 9.1 % (2.0-12.0); NEUTROPHILS # (AUTO) 3.2 /CMM (1.8-8.9); NEUTROPHILS % (AUTO) 58.5 % (43.0-81.0); PLATELET COUNT (AUTO) 297 /CMM (150-450); RDW COEFFICIENT OF VARIATION 21.3 (11.5-15.0); RED BLOOD CELL COUNT(AUTO) 3.97 MIL/uL (4.0-5.2); WHITE BLOOD COUNT (AUTO) 5.5 K/uL (4.3-11.0)
--- NOTE | 2016-10-03 07:15 | NUR ---
RN EOS NOTE; PT REMAINED STABLE DURING THE SHIFT. NO ANY DISTRESS NOTED. ALL NEEDS ATTENDED PROMPTLY. WILL ENDORSE TO NEXT SHIFT RN FOR CONTINUITY OF CARE.
[2016-10-03 07:22] LABS: CALCIUM, SERUM 7.9 mg/dL (8.5-10.1); CREATININE 0.4 mg/dL (0.6-1.3); MAGNESIUM 1.8 mg/dL (1.8-2.4); POTASSIUM 3.9 mmol/L (3.5-5.1)
[2016-10-03] MEDS: LOSARTAN POTASSIUM 50 MG TABLET PO SCH (08:40)
[2016-10-03] MEDS: FERROUS SULFATE (325 MG) 325 MG/TAB TABLET PO SCH (08:41)
[2016-10-03] MEDS: ASPIRIN 81 MG TAB.CHEW PO SCH (08:41)
[2016-10-03] MEDS: PANTOPRAZOLE 40 MG TABLET.DR PO SCH (08:42)
--- NOTE | 2016-10-03 12:16 | NUR ---
MISBAH met with pt. bedside to give her the following resources: Homeless Resource Directory which includes showers and hotmeals, emergency housing resources etc; List of homeless family shelters;List of Homeless Family Solution centers; Food resources; list of mental health resources which included [facility] , [facility] ; and [facility] [place] for crisis intervention [place] at [address] [facility] [place] [phone]. Pt. would like to be discharge when medically clear to the following address: [address] [place] [address], [address], [facility]. Pt. will require transportation via taxi to the aforementioned address. Homeless Patient Waiver Form was signed by pt and placed in the chart. MISBAH updated SUNG EPHRAIM Galan regarding discharge plan.
== END 2016-10-03 18:55 | disposition home or self-care (01) | DRG 203 ==
LOC: ER 12:57 → TELE1 18:35
PROVIDERS: ADMIT Internal Medicine; ATTEND Internal Medicine
DX: M94.0 Chondrocostal junction syndrome [Tietze] (principal); K31.811 Angiodysplasia of stomach and duodenum with bleeding; E46 Unspecified protein-calorie malnutrition; Z91.19 Patient's noncompliance with other medical treatment and regimen; E66.01 Morbid (severe) obesity due to excess calories; E87.6 Hypokalemia; F20.0 Paranoid schizophrenia; F31.9 Bipolar disorder, unspecified; K21.9 Gastro-esophageal reflux disease without esophagitis; M81.0 Age-related osteoporosis without current pathological fracture; Z79.899 Other long term (current) drug therapy; Z59.0 Homelessness; Z68.39 Body mass index [BMI] 39.0-39.9, adult; I10 Essential (primary) hypertension; D63.8 Anemia in other chronic diseases classified elsewhere
CPT/HCPCS: 36415; 71010-TC; 80048-TC; 80061-TC; 80076-TC; 83735-TC; 84100-TC; 84484-TC; 85025-TC; 85730-TC; 86850-TC; 86921-TC; 87040-TC; 87081-TC; A4606; J1650; J7030; Z7610

== ENCOUNTER 2016-10-13 17:53 | Emergency (ER) | payer OTHER ==
[~2016-10-13] VITALS: Ht 175.3 cm; Wt 90.7 kg
[~2016-10-13 17:53] MED LIST changes: -PANT40TA2 PO; +PANT40TA4 PO
[2016-10-13 19:09] LABS: BASOPHILS % (AUTO) 0.5 % (0.0-2.0); EOSINOPHILS # (AUTO) 0.1 /CMM (0.0-0.7); HEMATOCRIT 29 % (33-45); LYMPHOCYTES # (AUTO) 1.6 /CMM (0.8-4.8); LYMPHOCYTES % (AUTO) 22.7 % (20.0-44.0); MEAN CORPUSCULAR HEMOGLOBIN 21 PG (26.0-33.0); MEAN CORPUSCULAR HGB CONC 31 g/dl (31.0-36.0); MEAN CORPUSCULAR VOLUME 69 fL (82-100); MONOCYTES # (AUTO) 0.6 /CMM (0.1-1.30); MONOCYTES % (AUTO) 7.9 % (2.0-12.0); NEUTROPHILS # (AUTO) 4.8 /CMM (1.8-8.9); NEUTROPHILS % (AUTO) 66.9 % (43.0-81.0); PLATELET COUNT (AUTO) 294 /CMM (150-450); RDW COEFFICIENT OF VARIATION 20.6 (11.5-15.0); RED BLOOD CELL COUNT(AUTO) 4.24 MIL/uL (4.0-5.2); WHITE BLOOD COUNT (AUTO) 7.1 K/uL (4.3-11.0)
--- NOTE | 2016-10-13 19:15 | NUR ---
REC'D REPORT FROM GREG LAST FOR LEXY.
[2016-10-13 19:19] LABS: CALCIUM, SERUM 8.1 mg/dL (8.5-10.1); CREATININE 0.8 mg/dL (0.6-1.3); POTASSIUM 3.2 mmol/L (3.5-5.1)
--- NOTE | 2016-10-13 19:21 | NUR ---
patient refused iv, patient is here for multiple complaints, including chest pain (non-specific), and back pain, patient is reluctant to explain complaints in full detail or extent. Placed in bed, md at bedside, placed on monitor and patient does not have any respiratory distress, will continue to monitor closely.
[2016-10-13 19:25] LABS: ALBUMIN 3.7 g/dL (3.4-5.0); BILIRUBIN,TOTAL 0.3 mg/dL (0.2-1.0); TOTAL PROTEIN, SERUM 6.9 g/dL (6.4-8.2)
--- NOTE | 2016-10-13 19:30 | NUR ---
PT APPEARS TO BE RESTING COMFORTABLY WITH NO S/S OF PAIN OR DISTRESS.
[2016-10-13] MEDS ORDERED: POTASSIUM CHLORIDE 20 MEQ TAB.PRT.SR PO ONE ×2 (20:53→21:00)
[2016-10-13 20:56] LABS: APPEARANCE,URINE Clear (CLEAR); BILIRUBIN,URINE Negative (NEGATIVE); BLOOD, URINE Trace-intact Ery/uL (NEGATIVE); COLOR,URINE Yellow (YELLOW); KETONES,URINE Negative (NEGATIVE); LEUKOCYTE ESTERASE ,URINE Small (NEGATIVE); NITRITE, URINE Negative (NEGATIVE); PH,URINE 5.5 (5.0-8.0); PROTEIN,URINE 30 mg/dl (NEGATIVE); UGLUCOSE Negative (NEGATIVE); UROBILINOGEN,URINE 0.2 EU/dL (0.2)
--- NOTE | 2016-10-13 21:30 | NUR ---
PT IS ON THE MONITOR AND CONTINUOUS PULSE OX. VSS. RESP EVEN AND UNLABORED.
[2016-10-13 21:49] LABS: BACTERIA,URINE Few /HPF (None Seen); MUCUS,URINE Moderate /LPF (None Seen); RBC,URINE 2-3/HPF /HPF (0-2); SQUAMOUS EPITHELIAL CELL,UR Moderate /HPF (None Seen); URINE AMORPHOUS URATE Few /HPF (None Seen)
--- NOTE | 2016-10-13 22:01 | NUR ---
Patient discharged to home in stable condition. Written and verbal after care instructions given. Patient verbalizes understanding of instruction. ambulatory with a steady gait noted. pt aaox4 no acute distress noted, resp even and unlabored.
[2016-10-13 22:03] VITALS: BP 153/79
[2016-10-14 00:03] LABS: LYMPHOCYTES % (MANUAL) 19 % (16-48); MONOCYTES % (MANUAL) 12 % (0-11.0); NEUTROPHILS % (MANUAL) 69 (42-76)
== END 2016-10-13 22:04 | disposition home or self-care (01) ==
LOC: ER 17:57
DX: N39.0 Urinary tract infection, site not specified (principal); D64.9 Anemia, unspecified; E87.6 Hypokalemia; E66.9 Obesity, unspecified; I10 Essential (primary) hypertension; I25.10 Atherosclerotic heart disease of native coronary artery without angina pectoris; M81.0 Age-related osteoporosis without current pathological fracture; G89.29 Other chronic pain; F20.9 Schizophrenia, unspecified; Z98.890 Other specified postprocedural states
CPT/HCPCS: 36415; 80048-TC; 80076-TC; 81000-TC; 83690-TC; 85025-TC; A4606; Z7610

== ENCOUNTER 2016-11-05 14:36 | Emergency (ER) | payer OTHER ==
[~2016-11-05] VITALS: Ht 154.9 cm; Wt 93.0 kg
--- NOTE | 2016-11-05 15:00 | NUR ---
PT BIB SELF C/O BODY PAIN X2 DAYS. NAD NOTED. RESP EVEN UNLABORED. SKIN WARM NONDIAPHORETIC. AMBULATORY WITH STEADY GAIT. A/OX4. IN ER BED 09.
[2016-11-05 15:39] LABS: BASOPHILS % (AUTO) 0.3 % (0.0-2.0); EOSINOPHILS # (AUTO) 0.1 /CMM (0.0-0.7); EOSINOPHILS % (AUTO) 1.4 % (0.0-6.0); HEMATOCRIT 27 % (33-45); LYMPHOCYTES # (AUTO) 1.2 /CMM (0.8-4.8); LYMPHOCYTES % (AUTO) 15.2 % (20.0-44.0); MEAN CORPUSCULAR HEMOGLOBIN 21 PG (26.0-33.0); MEAN CORPUSCULAR HGB CONC 30 g/dl (31.0-36.0); MEAN CORPUSCULAR VOLUME 68 fL (82-100); MONOCYTES # (AUTO) 0.8 /CMM (0.1-1.30); MONOCYTES % (AUTO) 9.4 % (2.0-12.0); NEUTROPHILS % (AUTO) 73.7 % (43.0-81.0); PLATELET COUNT (AUTO) 234 /CMM (150-450); RDW COEFFICIENT OF VARIATION 20.5 (11.5-15.0); RED BLOOD CELL COUNT(AUTO) 3.89 MIL/uL (4.0-5.2); WHITE BLOOD COUNT (AUTO) 8.1 K/uL (4.3-11.0)
[2016-11-05 15:41] LABS: APPEARANCE,URINE Clear (CLEAR); BILIRUBIN,URINE Negative (NEGATIVE); BLOOD, URINE Negative Ery/uL (NEGATIVE); COLOR,URINE Yellow (YELLOW); KETONES,URINE Negative (NEGATIVE); LEUKOCYTE ESTERASE ,URINE Trace (NEGATIVE); NITRITE, URINE Negative (NEGATIVE); PH,URINE 5.5 (5.0-8.0); PROTEIN,URINE Negative (NEGATIVE); UGLUCOSE Negative (NEGATIVE); UROBILINOGEN,URINE 0.2 EU/dL (0.2)
[2016-11-05 15:42] LABS: CREATININE 0.6 mg/dL (0.6-1.3); POTASSIUM 3.4 mmol/L (3.5-5.1)
[2016-11-05 15:48] LABS: ALBUMIN 3.6 g/dL (3.4-5.0); BILIRUBIN,TOTAL 0.4 mg/dL (0.2-1.0); TOTAL PROTEIN, SERUM 6.5 g/dL (6.4-8.2)
[2016-11-05 15:49] LABS: BACTERIA,URINE Few /HPF (None Seen); RBC,URINE 0-2 /HPF (0-2); SQUAMOUS EPITHELIAL CELL,UR Few /HPF (None Seen)
--- NOTE | 2016-11-05 16:09 | NUR ---
DPatient discharged to home in stable condition. Written and verbal after care instructions given. Patient verbalizes understanding of instruction.
[2016-11-05 16:11] VITALS: BP 135/87
== END 2016-11-05 16:12 | disposition home or self-care (01) ==
LOC: ER 14:38
DX: D50.9 Iron deficiency anemia, unspecified (principal); E66.9 Obesity, unspecified; I10 Essential (primary) hypertension; I25.10 Atherosclerotic heart disease of native coronary artery without angina pectoris; M81.0 Age-related osteoporosis without current pathological fracture; F20.9 Schizophrenia, unspecified
CPT/HCPCS: 36415; 80048-TC; 80053-TC; 81000-TC; 85025-TC; A4606; Z7610

== ENCOUNTER 2016-12-16 15:37 | Emergency (ER) | payer OTHER ==
[~2016-12-16] VITALS: Ht 165.1 cm; Wt 103.4 kg
--- NOTE | 2016-12-16 15:45 | NUR ---
AAOX3, SELF PRRESENTS TO ED: PER PATIENT "MY BLOOD LEVELS ARE LOW". Hx OF ANEMIA, WEAKNESS. "MY BLOOD PRESSURE IS LOW". VSS DURING ASSESSMENT, RESP IS EVEN AND UNLABORED WITH NAD NOTED. AWAITING MD FOR EVAL.
[2016-12-16 17:50] LABS: BASOPHILS % (AUTO) 0.4 % (0.0-2.0); EOSINOPHILS % (AUTO) 0.3 % (0.0-6.0); HEMATOCRIT 25 % (33-45); HEMOGLOBIN 7.3 g/dL (11.5-14.8); LYMPHOCYTES # (AUTO) 0.8 /CMM (0.8-4.8); LYMPHOCYTES % (AUTO) 18.8 % (20.0-44.0); MEAN CORPUSCULAR HEMOGLOBIN 19 PG (26.0-33.0); MEAN CORPUSCULAR HGB CONC 29 g/dl (31.0-36.0); MEAN CORPUSCULAR VOLUME 65 fL (82-100); MONOCYTES # (AUTO) 0.6 /CMM (0.1-1.30); MONOCYTES % (AUTO) 12.5 % (2.0-12.0); PLATELET COUNT (AUTO) 251 /CMM (150-450); RDW COEFFICIENT OF VARIATION 17.9 (11.5-15.0); RED BLOOD CELL COUNT(AUTO) 3.88 MIL/uL (4.0-5.2); WHITE BLOOD COUNT (AUTO) 4.4 K/uL (4.3-11.0)
[2016-12-16 18:04] LABS: CREATININE 1.1 mg/dL (0.6-1.3); POTASSIUM 3.6 mmol/L (3.5-5.1)
[2016-12-16 18:59] VITALS: BP 118/66
== END 2016-12-16 19:02 | disposition home or self-care (01) ==
LOC: ER 15:42
DX: D64.9 Anemia, unspecified (principal); E66.9 Obesity, unspecified; F25.9 Schizoaffective disorder, unspecified; I10 Essential (primary) hypertension; I25.10 Atherosclerotic heart disease of native coronary artery without angina pectoris; M81.0 Age-related osteoporosis without current pathological fracture; F17.200 Nicotine dependence, unspecified, uncomplicated
CPT/HCPCS: 36415; 80048-TC; 85025-TC; A4606; Z7610

== ENCOUNTER 2018-07-25 21:16 | Inpatient (IN) | payer OTHER ==
[~2018-07-25] VITALS: Ht 160 cm; Wt 95.7 kg
[2018-07-25] MEDS: POTASSIUM CL. PREMIX PERIPHER. 50 ML IV SCH
--- NOTE | 2018-07-25 21:20 | NUR ---
Pt BIBRA for stating that she, "doesn't feel good." Pt states she felt weak. Pt skin pale and cool. Pt respirations even and unlabored. Pt put on the desk monitor and pulse ox. Pending eval from ER .
--- NOTE | 2018-07-25 21:40 | NUR ---
Cage Operator at bedside. Labs drawn.
--- NOTE | 2018-07-25 21:47 | NUR ---
Xray at Bedside.
[2018-07-25 22:00] LABS: CALCIUM, SERUM 7.6 mg/dL (8.5-10.1); CARBON DIOXIDE 25 mmol/L (21-32); CHLORIDE 104 mmol/L (98-107); GLUCOSE 101 mg/dL (74-106); POTASSIUM 3.1 mmol/L (3.5-5.1); SODIUM SERUM 138 mmol/L (136-145); UREA NITROGEN, BLOOD 10 mg/dL (7-18)
[2018-07-25 22:13] LABS: ALANINE AMINOTRANSFERASE 13 U/L (12-78); ALBUMIN 3.6 g/dL (3.4-5.0); ALKALINE PHOSPHATASE 70 U/L (46-116); ASPARTATE AMINOTRANSFERASE 5 U/L (15-37); B-TYPE NATRIURETIC PEPTIDE 784 PG/ML (0-125); BILIRUBIN,DIRECT 0.1 mg/dL (0.0-0.2); BILIRUBIN,TOTAL 0.6 mg/dL (0.2-1.0)
[2018-07-25 22:25] LABS: BASOPHILS # (AUTO) 0.1 /CMM (0.0-0.2); BASOPHILS % (AUTO) 1.5 % (0.0-2.0); EOSINOPHILS % (AUTO) 0.1 % (0.0-6.0); LYMPHOCYTES # (AUTO) 0.7 /CMM (0.8-4.8); LYMPHOCYTES % (AUTO) 21.1 % (20.0-44.0); MEAN CORPUSCULAR HGB CONC 29 g/dl (31.0-36.0); MEAN CORPUSCULAR VOLUME 63 fL (82-100); MONOCYTES # (AUTO) 0.4 /CMM (0.1-1.30); NEUTROPHILS # (AUTO) 2.2 /CMM (1.8-8.9); NEUTROPHILS % (AUTO) 65.3 % (43.0-81.0); PLATELET COUNT (AUTO) 319 /CMM (150-450); RED BLOOD CELL COUNT(AUTO) 2.01 MIL/uL (4.0-5.2); WHITE BLOOD COUNT (AUTO) 3.4 K/uL (4.3-11.0)
[2018-07-25 22:32] LABS: HEMATOCRIT 13 % (33-45); HEMOGLOBIN 3.7 g/dL (11.5-14.8)
[2018-07-25 22:56] LABS: LYMPHOCYTES % (MANUAL) 11 % (16-48); MONOCYTES % (MANUAL) 5 % (0-11.0); NEUTROPHILS % (MANUAL) 84 (42-76)
[2018-07-25] MEDS ORDERED: PANTOPRAZOLE 40 MG VIAL ONE (23:11)
--- NOTE | 2018-07-25 23:12 | NUR ---
CALLED [facility]. ELECTRICAL DESIGNER DRAFTER WAS PAGED
--- NOTE | 2018-07-25 23:24 | NUR ---
Pt resting in bed, NAD noted. Will Continue to monitor.
[2018-07-25] MEDS ORDERED: PANTOPRAZOLE 80 MG in IV NS 0.9% 100 ML IV ONE (23:30)
[2018-07-25] MEDS ORDERED: PANTOPRAZOLE 80 MG in IV NS 0.9% 500 ML IV ONE (23:30)
--- NOTE | 2018-07-25 23:32 | NUR ---
SUNG 111-1
[2018-07-25] MEDS ORDERED: POTASSIUM CL. PREMIX PERIPHER. 50 ML ONE (23:50)
[2018-07-25 23:52] LABS: OCCULT BLOOD STOOL POSITIVE (NEGATIVE)
[2018-07-26] VITALS (22 sets, daily range): BP systolic 125–151; BP diastolic 67–90
--- NOTE | 2018-07-26 00:17 | NUR ---
Report given to Cathy Villegas for LEXY.
[2018-07-26] MEDS ORDERED: Potassium Chloride 20 MEQ in IV D5/ 0.9% NACL 1,000 ML IV PRN (00:30)
[2018-07-26] MEDS ORDERED: ONDANSETRON HCL/PF 4 MG/2 ML VIAL IVP PRN (00:30)
[2018-07-26] MEDS: PANTOPRAZOLE 40 MG VIAL IV SCH ×2 (00:30→13:53)
[2018-07-26] MEDS ORDERED: MORPHINE SULFATE INJ 2 MG/ML DISP.SYRIN IV PRN (00:30)
[2018-07-26] MEDS ORDERED: ACETAMINOPHEN 650 MG/SUPP.RECT RC PRN (00:30)
[2018-07-26] MEDS: POTASSIUM CL. PREMIX PERIPHER. 50 ML IV SCH ×3 (01:32→03:19)
--- NOTE | 2018-07-26 01:40 | NUR ---
SECOND BAG OF PRBCS RUNNING, VITALS STABLE, NO S/S OF ADVERSE REACTIONS, WILL CONTINUE TO MONITOR
--- NOTE | 2018-07-26 01:45 | NUR ---
PT REFUSED BODY CHECK, REFUSED TO HAVE HER BELONGINGS CHECKED, AND REFUSED TO GIVE UP HER MANAGER RESPIRATORY
--- NOTE | 2018-07-26 01:50 | NUR ---
PER DR. OLIVAS, DC PROTONIX DRIP, KEEP 40MG PROTONIX IV PUSH BID
[2018-07-26] MEDS ORDERED: IV PREMIX D5 1/2NS + KCL 1,000 ML IV ONE (01:58)
--- NOTE | 2018-07-26 01:58 | NUR ---
SPOKE TO MD OLIVAS, D/C PROTONIX DRIP AND CONTINUE WITH PROTONIX IVP Q12HRS. IV FLUIDS D5NS WITH 20 MEQ KCL NOT AVAILABLE PER NURSING GRANTS AND CONTRACTS ASSISTANT MD DEISY CAT OK TO CHANGE IVF ORDER TO D51/2NS WITH 20 MEQ KCL FOR TONIGHT AND CHANGE BACK IN AM WHEN PHARMACY OPENS.
--- NOTE | 2018-07-26 01:59 | NUR ---
SHELTER SUPERVISOR ADMITTING NOTES RECEIVED PT IN VIA GHISLAINE , PT AWAKE, ALERT ORIENTED X3, BREATHING EVEN AND UNLABORED ON ROOM AIR, NO SOB COUGH OR CONGESTION AT THE MOMENT. IV ACCESS ON THE R AC 20G, AND LFA 20G, RUNNING 1 UNIT OF PRBCS @300ML/HR, PROTONIX DRIP @52ML/HR, AND POTASSIUM @50ML/HR AND TOLERATING. PT DENIES ANY PAIN OR DISCOMFORT AT THIS TIME, SAYS TO BE FEELING BETTER THAN WHEN SHE CAME IN. PT REFUSES BODY CHECK, REFUSES TO TAKE OFF SOCKS. BELONGINGS LIST SIGNED. BED IN LOWEST LOCKED POSITION, CALL LIGHT WITHIN REACH AT ALL TIMES, WILL CONTINUE TO MONITOR FREQUENTLY
[2018-07-26] MEDS: Potassium Chloride 20 MEQ in IV D5/0.45 NACL 1,000 ML IV PRN ×2 (02:04→22:45)
--- NOTE | 2018-07-26 02:21 | NUR ---
IV FLUIDS ORIGINALLY ORDERED NOT AVAILABLE( D5NS WITH 20MEQ OF POTASSIUM), PER DR. DEISY GANDHI TO GIVE D5 1/2NS WITH 20MEQ OF POTASSIUM FOR TONIGHT AND CHANGE IN THE AM, WILL ENDORSE TO DAY NURSE
--- NOTE | 2018-07-26 02:24 | NUR ---
NON ADMIN IV PROTONIX 40MG AT 0030, 80MG GIVEN IN ER
--- NOTE | 2018-07-26 02:45 | NUR ---
BAG #3 OF PRBCS STARTED, VITALS STABLE, NO SIGNS OF ADVERSE REACTIONS, WILL CONTINUE TO MONITOR CLOSELY
--- NOTE | 2018-07-26 04:40 | NUR ---
bag #4 of PRBS STARTED, VITALS STABLE, NO SIGNS OF ADVERSE REACTIONS, WILL CONTINUE TO MONITOR
--- NOTE | 2018-07-26 06:02 | NUR ---
MARKETING AND PROMOTIONS MANAGER CLOSING NOTES PT REMAINS IN BED, AWAKE ALERT ORIENTED X3-4, BREATHING EVEN AND UNLABORED ON 2L O2 NC, NO SOB, COUGH OR CONGESTION. NO COMPLAINT OF PAIN OR DISCOMFORT AT THIS TIME. IV ACCESS ON THE RAC 20G AND LFA 20G, WITH D5 1/2NS WITH POTASSIUM 20MEQS @80ML/HR. NO S/S OF ADVERSE REACTIONS TO THE PRBCs, BED IN LOWEST LOCKED POSITION, CALL LIGHT WITHIN REACH AT ALL TIMES, PT CLEAN AND COMFORTABLE ALL NIGHT, WILL ENDORSE TO DAY NURSE FOR LEXY
--- NOTE | 2018-07-26 07:21 | NUR ---
REHAB PHYSICIAN OPENING NOTE RECEIVED PT IN BED, ALERT AND ORIENTED X4. DENIES CHEST PAIN, SOB, N/V. BREATHING IS EVEN AND UNLABORED ON ROOM AIR, NC IS AT THE BEDSIDE PRN FOR SOB. PT IS ON VIOLIN MAKER HAND WITH SINUS RHYTHM, HR 74 AT THIS TIME. PT IS S/P 4 UNITS PRBC TRANSFUSION AND PENDING AM LABS. RIGHT AC #20G IV IS INFUSING ORDERED WITHOUT REDNESS OR SWELLING. PT IS REFUSING STAFF TO CHECK BELONGINGS AT THIS TIME, EDUCATION PROVIDED. PT STILL STRONGLY REFUSED. NPO STATUS MAINTAINED. ALL NEEDS ATTENDED TO. BED IS LOCKED AND IN LOWEST POSITION, SIDE RAILS UP X2, BED ALARM ON, CALL LIGHT AND POSSESSIONS WITHIN REACH.
[2018-07-26 07:55] LABS: BASOPHILS % (AUTO) 1.1 % (0.0-2.0); EOSINOPHILS % (AUTO) 1.3 % (0.0-6.0); LYMPHOCYTES % (AUTO) 29.2 % (20.0-44.0); MEAN CORPUSCULAR HGB CONC 32 g/dl (31.0-36.0); MEAN CORPUSCULAR VOLUME 72 fL (82-100); MONOCYTES # (AUTO) 0.5 /CMM (0.1-1.30); MONOCYTES % (AUTO) 14.3 % (2.0-12.0); NEUTROPHILS # (AUTO) 1.9 /CMM (1.8-8.9); NEUTROPHILS % (AUTO) 54.1 % (43.0-81.0); PLATELET COUNT (AUTO) 268 /CMM (150-450); RED BLOOD CELL COUNT(AUTO) 2.83 MIL/uL (4.0-5.2); WHITE BLOOD COUNT (AUTO) 3.5 K/uL (4.3-11.0)
[2018-07-26 08:04] LABS: HEMATOCRIT 20 % (33-45); HEMOGLOBIN 6.5 g/dL (11.5-14.8)
[2018-07-26 08:09] LABS: ALBUMIN 3.1 g/dL (3.4-5.0); BILIRUBIN,TOTAL 1.1 mg/dL (0.2-1.0); CALCIUM, SERUM 7.5 mg/dL (8.5-10.1); CREATININE 0.6 mg/dL (0.6-1.3); PHOSPHORUS 4.1 mg/dL (2.5-4.9); POTASSIUM 3.8 mmol/L (3.5-5.1); TOTAL PROTEIN, SERUM 5.5 g/dL (6.4-8.2)
--- NOTE | 2018-07-26 08:15 | NUR ---
SENIOR ENERGY CONSULTANT NOTE CRITICAL LAB VALUE OF HGB 6.5, HCT [address] ROSAS. ORDERS RECEIVED FOR TRANSFUSION OF 2 UNITS PRBC.
[2018-07-26 08:38] LABS: THYROID STIMULATING HORMONE 1.852 uIU/mL (0.358-3.74)
[2018-07-26 08:51] LABS: BAND % (MANUAL) 5 % (0.0-5.0); LYMPHOCYTES % (MANUAL) 32 % (16-48); MONOCYTES % (MANUAL) 6 % (0-11.0); NEUTROPHILS % (MANUAL) 57 (42-76)
--- NOTE | 2018-07-26 10:42 | NUR ---
WELL HEAD PUMPER NOTE FIRST UNIT OF TWO PRBC STARTED UTILIZING 2 RN VERIFICATION PER PROTOCOL. VS BP: 149/79, HR: 79, R: 20, SP02 95% T: 98.8.
--- NOTE | 2018-07-26 12:11 | NUR ---
Social service consult requested by GIFTS OFFICER for Homelessness. Pt is a 63 year old female admitted to [facility] after BIBRA and stating she doesnt feel good. Sw met with pt at bedside, pt appears to be disheveled, pt has some of her belonging at bedside. Pt is alert and ox3. Pt reports that she has been staying at a few places in the past. Sw brought up possible discharge plan once medically cleared pt reported she has some places to stay at, I just need to make some calls social work informed pt that her room has a phone that she may make phone calls. Social Work also offered pt with homeless residential resources, homeless resources directory, local free and low income clinics and substance abuse resources. Pt accepted all resources. Pt would not discuss any background information with public health social worker. Harshal will continue to monitor pt prior to discharge.
--- NOTE | 2018-07-26 12:24 | NUR ---
COGNOS BI ADMINISTRATORASPHALT SPREADER OF CARE TRANSFER OF CARE TO GREG MAXWELL. INFORMED NURSE OF ONGOING BLOOD TRANSFUSION, INCLUDING OF NEED FOR SECOND PRBC ORDERED AND TO RE CHECK H&H AFTER TRANSFUSION COMPLETED. VS AT BASELINE. PT IS ALERT AND ORIENTED X4. DENIES CHEST PAIN, SOB, N/V. BREATHING IS EVEN AND UNLABORED ON 2L NC. PT IS ON APPLICATION SUPPORT CONSULTANT WITH SINUS RHYTHM, HR IN 70'S. RIGHT AC #20G IV IS INFUSING ORDERED WITHOUT REDNESS OR SWELLING. PT IS REFUSING STAFF TO CHECK BELONGINGS STILL, EDUCATION PROVIDED. PT STILL STRONGLY REFUSED AGAIN. NPO STATUS MAINTAINED. ALL NEEDS ATTENDED TO. BED IS LOCKED AND IN LOWEST POSITION, SIDE RAILS UP X2, BED ALARM ON, CALL LIGHT AND POSSESSIONS WITHIN REACH.
--- NOTE | 2018-07-26 13:01 | NUR ---
MARZIPAN MAKER NOTES RECEIVED REPORT FROM GREG BLACKBURN .PT IS LYING ON BED HAVING UNIT OF BLOOD TRANSFUSION.ALERT/ORIENTED X3.ON TELE HR IS 78 WITH SR.ON 2L O2 VIA NC CONTINUOUSLY.NO SOB AND ACUTE DISTRESS NOTED.IV LINE IS ON RIGHT AC G20,BLOOD IS TRANSFUSING @245ML/HR.SITE IS CLEAN,DRY AND INTACT.NO INFILTRATION NOTED.NO ADVERSE EFFECT NOTED FOR BLOOD TRANSFUSION.SAFETY IS MAINTAINED AT ALL TIMES.BED IS IN ,LOW POSITION AND LOCKED.CALL LIGHT IS WITHIN REACH.WILL CONTINUE TO MONITOR THE PT CLOSELY.
--- NOTE | 2018-07-26 17:09 | NUR ---
BATTALION FIRE CHIEF NOTES PT HAS DONE 2ND UNIT OF BLOOD TRANSFUSION TODAY,NO COMPLICATIONS NOTED.STABLE VITAL SIGNS.
--- NOTE | 2018-07-26 18:35 | NUR ---
MEDICAL CLAIMS SPECIALIST CLOSING NOTES PT IS LYING ON BED.2 UNIT OF PRBC DONE.NO COMPLICATIONS NOTED.VITAL SIGNS ARE STABLE.PENDING HEMOGLOBIN AND HEMATOCRIT S/P BLOOD TRANSFUSION.ON TELE HR IS 70'S WITH SR.NO SOB AND ACUTE DISTRESS NOTED.ENDORSED TO SHOP ESTIMATOR RN FOR LEXY AND FOLLOW UP THE H/H.
[2018-07-26 19:01] LABS: HEMOGLOBIN 7.7 g/dL (11.5-14.8)
[2018-07-26 19:22] LABS: IRON, SERUM 18 ug/dl (50-175); TOTAL IRON BINDING CAPACITY 314 ug/dl (250-450)
[2018-07-26] MEDS ORDERED: NA PHOS,M-B/NA PHOS,DI-BA 1 EA ENEMA RC PRN (19:30)
[2018-07-26] MEDS ORDERED: MAGNESIUM CITRATE 296 ML BOTTLE PO ONE (19:30)
[2018-07-26] MEDS ORDERED: PEG 3350/NA SULF,BICARB,CL/KCL 4,000 ML BOTTLE PO ONE (19:30)
[2018-07-26 19:37] LABS: FERRITIN 4 ng/mL (8-388)
[2018-07-27] VITALS: BP 142/89
[2018-07-27] MEDS: PANTOPRAZOLE 40 MG VIAL IV SCH ×4 (00:13→16:53)
[2018-07-27 04:00] VITALS: BP 139/87
--- NOTE | 2018-07-27 05:05 | NUR ---
CLOSING NOTES: COOPERATIVE THRU THE NIGHT. AMBULATES TO THE BATHROOM INDEPENDENTLY, ALWAYS TAKING HER HAND BAG WITH HER. SHE TALK LOUDLY AND ENJOYS CONVERSATION. TALKING ABOUT THE MOVIES ON TV HER FAVORITE SINGING STARS. NO BMS THIS 12 HOURS NO ACTIVE BLEEDING SEEN. INSTRUCTED TO BRUSH HER TEEH GENTLY NOT TO CAUSE BLEEDING. 07/26 1800 HBG WAS 7.7 SHE IS AWARE THAT SCHEDULED COLONOSCOPY AND EGD FOR THURSDAY. WILL INSTRUCT THE ONCOMING SHIFT TO START THE GI PREP .
--- NOTE | 2018-07-27 07:00 | NUR ---
TIGHTENING MACHINE OPERATOR OPENING NOTES RECEIVED PT LYING ON BED.ALERT/ORIENTED X3.ON TELE HR IS 75 WITH SR.ON ROOM AIR,TOLERATING WELL.NO SOB AND ACUTE DISTRESS NOTED. CAN AMBULATE BRP WITH MINIMAL SUPERVISION,TOLERATING WELL.IV LINE IS ON LEFT FA G20,SITE IS CLEAN DRY AND INTACT.NO INFILTRATION NOTED.BED IS IN LOW POSITION AND LOCKED.CALL LIGHT IS WITHIN REACH.WILL CONTINUE TO MONITOR THE PT CLOSELY.
[2018-07-27 07:31] LABS: BASOPHILS % (AUTO) 1.1 % (0.0-2.0); EOSINOPHILS % (AUTO) 3.1 % (0.0-6.0); HEMATOCRIT 25 % (33-45); LYMPHOCYTES % (AUTO) 24.8 % (20.0-44.0); MEAN CORPUSCULAR HGB CONC 32 g/dl (31.0-36.0); MEAN CORPUSCULAR VOLUME 74 fL (82-100); MONOCYTES # (AUTO) 0.6 /CMM (0.1-1.30); MONOCYTES % (AUTO) 14.4 % (2.0-12.0); NEUTROPHILS # (AUTO) 2.2 /CMM (1.8-8.9); NEUTROPHILS % (AUTO) 56.6 % (43.0-81.0); PLATELET COUNT (AUTO) 239 /CMM (150-450); RED BLOOD CELL COUNT(AUTO) 3.36 MIL/uL (4.0-5.2); WHITE BLOOD COUNT (AUTO) 3.8 K/uL (4.3-11.0)
[2018-07-27 08:00] VITALS: BP 143/95
[2018-07-27 08:03] LABS: CREATININE 0.4 mg/dL (0.6-1.3); MAGNESIUM 2.1 mg/dL (1.8-2.4); POTASSIUM 3.7 mmol/L (3.5-5.1)
[2018-07-27] MEDS ORDERED: PEG 3350/NA SULF,BICARB,CL/KCL 4,000 ML BOTTLE PO ONE (09:00)
[2018-07-27] MEDS ORDERED: MAGNESIUM CITRATE 296 ML BOTTLE PO ONE (09:00)
--- NOTE | 2018-07-27 11:30 | NUR ---
MISBAH met with pt. again to discuss discharge planning. Pt. appeared disheveled and yelled at SW stating, " I will let you know my plan when I am being discharged." Pt. refused to cooperate at this time. Pt. is scheduled for a colonoscopy for tomorrow morning. SW to meet with pt. again tomorrow.
[2018-07-27 12:00] VITALS: BP 132/70
[2018-07-27] MEDS: Potassium Chloride 20 MEQ in IV D5/0.45 NACL 1,000 ML IV PRN (13:00)
[2018-07-27 16:00] VITALS: BP 124/75
--- NOTE | 2018-07-27 16:00 | NUR ---
AWNING HANGER NOTES IRRIGATION TECHNICIAN MOHAN ALVAREZ MADE AWARE ABOUT THE PT HARDLY TAKING THE BOWEL PREP ANTONELLA.
--- NOTE | 2018-07-27 18:38 | NUR ---
COMPLIANCE CLERK NOTES PT IS LYING ON BED.ALERT/ORIENTED X3.ON TELE HR IS 78 WITH SR.NO SOB AND ACUTE DISTRESS NOTED.CONTINUE TO HAVE BOWEL PREP ANTONELLA.IV FLUID IS RUNNING.ALL THE DUE MEDS ARE GIVEN.NO SIGNIFICANT CHANGES NOTED IN THE SHIFT.ENDORSED TO INSECTICIDE EXPERT RN FOR LEXY AND ABOUT THE PROCEDURE EGD AND COLONOSCOPY IN AM.
--- NOTE | 2018-07-27 19:59 | NUR ---
RIPRAP PLACER OPENING NOTES RECEIVED REPORT FROM ALISSA RN. PATIENT A/A/O X3, ABLE TO MAKE NEEDS KNOWN. BREATHING EVEN & UNLABORED, TOLERATING ROOM AIR. REFUSING TO WEAR NASAL CANNULA. ON TELE W/ SINUS RHYTHM, HR 74. LEFT FOREARM IV #20 INTACT & PATEN W/ DRESSING CDI & IVF D5 1/2 NS W/ 20 MEQ KCL INFUSING WELL @ 80 ML/HR. DENIES ANY PAIN OR DISCOMFORT @ THIS TIME. SAFETY MEASURES IN PLACE W/ SIDE RAILS & CALL LIGHT WITHIN REACH. INSTRUCTED TO CALL FOR ASSISTANCE. PATIENT ABLE TO AMBULATE TO BATHROOM INDEPENDENTLY. WILL CONTINUE TO MONITOR.
[2018-07-27 20:00] VITALS: BP 147/95
[2018-07-28] VITALS: BP 126/74
[2018-07-28] MEDS: PANTOPRAZOLE 40 MG VIAL IV SCH ×2 (00:50→12:50)
[2018-07-28] MEDS: Potassium Chloride 20 MEQ in IV D5/0.45 NACL 1,000 ML IV PRN (00:51)
[2018-07-28 04:00] VITALS: BP 129/75
[2018-07-28 07:48] LABS: BASOPHILS % (AUTO) 0.7 % (0.0-2.0); EOSINOPHILS % (AUTO) 4.4 % (0.0-6.0); HEMATOCRIT 25 % (33-45); HEMOGLOBIN 8.1 g/dL (11.5-14.8); LYMPHOCYTES # (AUTO) 1.1 /CMM (0.8-4.8); LYMPHOCYTES % (AUTO) 30.9 % (20.0-44.0); MEAN CORPUSCULAR HGB CONC 32 g/dl (31.0-36.0); MEAN CORPUSCULAR VOLUME 75 fL (82-100); MONOCYTES # (AUTO) 0.6 /CMM (0.1-1.30); MONOCYTES % (AUTO) 15.4 % (2.0-12.0); NEUTROPHILS # (AUTO) 1.8 /CMM (1.8-8.9); NEUTROPHILS % (AUTO) 48.6 % (43.0-81.0); PLATELET COUNT (AUTO) 223 /CMM (150-450); RED BLOOD CELL COUNT(AUTO) 3.36 MIL/uL (4.0-5.2); WHITE BLOOD COUNT (AUTO) 3.6 K/uL (4.3-11.0)
[2018-07-28 08:00] VITALS: BP_SYST 140; BP_SYST 143; BP_DIAS 76; BP_DIAS 83
[2018-07-28 08:03] LABS: CREATININE 0.5 mg/dL (0.6-1.3); POTASSIUM 4.1 mmol/L (3.5-5.1)
--- NOTE | 2018-07-28 10:24 | NUR ---
MANAGER CLUB OPENING NOTES RECEIVED PATIENT A/A/O X3, ABLE TO MAKE NEEDS KNOWN. BREATHING EVEN & UNLABORED, TOLERATING ROOM AIR. REFUSING TO WEAR NASAL CANNULA. ON TELE W/ SINUS RHYTHM, HR 80'S. LEFT FOREARM IV #20 INTACT & PATENT W/ DRESSING CDI & IVF D5 1/2 NS W/ 20 MEQ KCL INFUSING WELL @ 80 ML/HR. DENIES ANY PAIN OR DISCOMFORT @ THIS TIME. SAFETY MEASURES IN PLACE W/ SIDE RAILS & CALL LIGHT WITHIN REACH. PATIENT ABLE TO AMBULATE TO BATHROOM INDEPENDENTLY. WILL CONTINUE TO MONITOR.
[2018-07-28 12:00] VITALS: BP 140/83
[2018-07-28] MEDS: SOD FERRIC GLUC 125 MG in IV NS 0.9% 100 ML IV SCH (15:40)
[2018-07-28 16:00] VITALS: BP 139/84
[2018-07-28 20:00] VITALS: BP 153/98
--- NOTE | 2018-07-28 20:04 | NUR ---
STAPLE SIDE LASTER CLOSING NOTES PATIENT IN BED AND AWAKE. A/O X3, ABLE TO MAKE NEEDS KNOWN. BREATHING EVEN & UNLABORED, TOLERATING ROOM AIR. REFUSING TO WEAR NASAL CANNULA. ON TELE W/ SINUS RHYTHM, HR 80'S. LEFT FOREARM IV #20 INTACT & PATENT W/ DRESSING CDI & IVF D5 1/2 NS W/ 20 MEQ KCL INFUSING WELL @ 80 ML/HR. DENIES ANY PAIN OR DISCOMFORT @ THIS TIME. PATIENT INSTRUCTED TO DRINK GO-LYTELY SOLUTION ON NUMEROUS OCCASSIONS. PATIENT REMAINED NPO EXCEPT CLEAR FLUIDS. SAFETY MEASURES IN PLACE W/ SIDE RAILS & CALL LIGHT WITHIN REACH. PATIENT ABLE TO AMBULATE TO BATHROOM INDEPENDENTLY. CARE ENDORSED TO FIBERGLASSER RN.
--- NOTE | 2018-07-28 20:06 | NUR ---
TIRE SERVICER OPENING NOTES RECEIVED REPORT FROM CASSI GARZA. PATIENT A/A/O X3, ABLE TO MAKE NEEDS KNOWN. BREATHING EVEN & UNLABORED, TOLERATING ROOM AIR. REFUSING TO WEAR NASAL CANNULA. ON TELE W/ SINUS RHYTHM, HR 74. LEFT FOREARM IV #20 INTACT & PATEN W/ DRESSING CDI, SALINE LOCKED. DENIES ANY PAIN OR DISCOMFORT @ THIS TIME. SAFETY MEASURES IN PLACE W/ SIDE RAILS & CALL LIGHT WITHIN REACH. INSTRUCTED TO CALL FOR ASSISTANCE. PATIENT ABLE TO AMBULATE TO BATHROOM INDEPENDENTLY. WILL CONTINUE TO MONITOR.
[2018-07-29] VITALS (7 sets, daily range): BP systolic 120–151; BP diastolic 70–92
[2018-07-29] MEDS: PANTOPRAZOLE 40 MG VIAL IV SCH ×2 (00:18→12:37)
[2018-07-29 07:31] LABS: BASOPHILS % (AUTO) 0.2 % (0.0-2.0); HEMATOCRIT 28 % (33-45); HEMOGLOBIN 8.8 g/dL (11.5-14.8); LYMPHOCYTES % (AUTO) 28.3 % (20.0-44.0); MEAN CORPUSCULAR HGB CONC 32 g/dl (31.0-36.0); MEAN CORPUSCULAR VOLUME 74 fL (82-100); MONOCYTES # (AUTO) 0.5 /CMM (0.1-1.30); NEUTROPHILS # (AUTO) 1.7 /CMM (1.8-8.9); NEUTROPHILS % (AUTO) 48.5 % (43.0-81.0); PLATELET COUNT (AUTO) 246 /CMM (150-450); RED BLOOD CELL COUNT(AUTO) 3.73 MIL/uL (4.0-5.2); WHITE BLOOD COUNT (AUTO) 3.6 K/uL (4.3-11.0)
[2018-07-29 07:44] LABS: CALCIUM, SERUM 8.2 mg/dL (8.5-10.1); CREATININE 0.5 mg/dL (0.6-1.3); POTASSIUM 3.7 mmol/L (3.5-5.1)
--- NOTE | 2018-07-29 07:59 | NUR ---
HEALTH TYPE TECHNICIAN OPENING NOTES RECEIVED PATIENT SLEEPING IN BED. NO S/S OF DISTRESS. A/O X3, ABLE TO MAKE NEEDS KNOWN. BREATHING EVEN & UNLABORED, TOLERATING ROOM AIR. REFUSING TO WEAR NASAL CANNULA. ON TELE W/ SINUS RHYTHM, HR 74. LEFT FOREARM IV #20 INTACT & PATEN W/ DRESSING CDI, SALINE LOCKED. DENIES ANY PAIN OR DISCOMFORT @ THIS TIME. SAFETY MEASURES IN PLACE W/ SIDE RAILS & CALL LIGHT WITHIN REACH. INSTRUCTED TO CALL FOR ASSISTANCE. PATIENT ABLE TO AMBULATE TO BATHROOM INDEPENDENTLY. WILL CONTINUE TO MONITOR.
[2018-07-29] MEDS: SOD FERRIC GLUC 125 MG in IV NS 0.9% 100 ML IV SCH (15:14)
[2018-07-29] MEDS ORDERED: PEG 3350/NA SULF,BICARB,CL/KCL 4,000 ML BOTTLE PO ONE (17:00)
[2018-07-29] MEDS ORDERED: BISACODYL (5 MG) 5 MG TABLET.DR PO PRN (17:00)
--- NOTE | 2018-07-29 17:55 | NUR ---
PATIENT REFUSES TO DRINK PRESCRIBED GOLYTELY BOWEL PREP MEDICATION. PATIENT REFUSAL ONGOING SINCE ADMISSION. MULTIPLE ADMINISTRATION ATTEMPTS MADE.
--- NOTE | 2018-07-29 19:15 | NUR ---
SCREEN PRINTING CLOTH SPREADER NOTE PATIENT IS AOX3, ON TELE SR, RESTING WITH HOB ELEVATED, DENIES PAIN, NO S/SX OF CARDIAC OR RESPIRATORY DISTRESS, ON ROOM AIR, LFA #20G IV SL, PATENT FLUSHING WELL, SKIN KEPT CLEAN AND DRY, SAFETY MAINTAINED AT ALL TIMES, BED IN LOW LOCKED POSITION, WILL CONTINUE TO MONITOR FOR CHANGES.
--- NOTE | 2018-07-29 19:54 | NUR ---
SUPERVISOR STAVE CUTTING CLOSING NOTES PATIENT SLEEPING IN BED AND AWAKE. NO S/S OF DISTRESS. A/O X3, ABLE TO MAKE NEEDS KNOWN. BREATHING EVEN & UNLABORED, TOLERATING ROOM AIR. REFUSING TO WEAR NASAL CANNULA. ON TELE W/ SINUS RHYTHM, HR 74. LEFT FOREARM IV #20 INTACT & PATEN W/ DRESSING CDI, SALINE LOCKED. DENIES ANY PAIN OR DISCOMFORT @ THIS TIME. COLONOSCOPY PREP NEEDS RELAYED TO SAND HAULER RN. SAFETY MEASURES IN PLACE W/ SIDE RAILS & CALL LIGHT WITHIN REACH. INSTRUCTED TO CALL FOR ASSISTANCE. PATIENT ABLE TO AMBULATE TO BATHROOM INDEPENDENTLY. CARE ENDORSED TO SAND HAULER RN. .
--- NOTE | 2018-07-29 23:29 | NUR ---
ART MUSEUM DOCENT NOTE MESSAGE DR GUERRERO CONCERNING ACETAMINOPHEN ORDER NEED FOR PO, NEW ORDER FOR ACETAMINOPHEN 650MG PO PRN
[2018-07-29] MEDS ORDERED: ACETAMINOPHEN 325 MG TABLET PO PRN (23:30)
[2018-07-30] VITALS (7 sets, daily range): BP systolic 108–157; BP diastolic 72–85
--- NOTE | 2018-07-30 07:34 | NUR ---
RN NOTES RECEIVED PATIENT IN BED, SLEEPING COMFORTABLY EASILY AROUSABLE, ABLE TO MAKE NEEDS KNOWN. RESPIRATIONS EVEN AND UNLABORED, DENIES ANY PAIN OR DISCOMFORT AT THIS TIME. IV ACCESS TO LFA PATENT AND INTACT NO REDNESS OR INFILTRATION NOTED. KEPT CLEAN DRY AND COMFORTABLE, PT TO HAVE COLONOSCOPY TODAY, KEPT NPO AFTER MIDNIGHT AND CONTINUE TO MONITOR
--- NOTE | 2018-07-30 08:30 | NUR ---
RN NOTES PATIENT NOTED WITH LIQUID STOOL WITH PARTICLES, GOLYTELY GIVEN LAST NIGHT ORDERED FOR COLONOSCOPY SCHEDULED TODAY AT 1100 WILL CONTINUE TO MONITOR
[2018-07-30] MEDS ORDERED: PANTOPRAZOLE 40 MG VIAL IV SCH (09:00)
--- NOTE | 2018-07-30 11:09 | NUR ---
RN NOTES PATIENT TO STAY NPO AT THIS TIME FOR PROCEDURE, CALLED OR TO CONFIRM TIME, PT SCHEDULED AT 1300 WILL CONTINUE TO MONITOR
--- NOTE | 2018-07-30 11:13 | NUR ---
SW met with pt. for a psychosocial assessment. Pt. was cooperative this time with SW. Pt. is alert and oriented x 4. Pt. appears disheveled and unkempt. MISBAH is familiar with pt. from previous admissions in 2017/2017. SW informed pt. if she is homeless. Pt. didn't give a clear answer and stated, " I live at [address] [place] [address], [address], [facility]" Pt. wants to be discharged to the above mentioned address. Pt. has a history of Bipolar Disorder. Pt. states she receives SSI but would not disclose how much. Pt. was given homeless resources which include group home placement, showers, hot meals, health clinics, mental health clinics and substance abuse referrals. Clothing were provided for the pt. and pt. signed Homeless Patient Waiver form. A copy of form was placed in pt's chart. MISBAH updated pt's GREG Suárez and EPHRAIM Lincoln with pt' s discharge plan and pt. needing a taxi upon discharge to the above mentioned address. No other social service needs are requested at this time. MISBAH is available, if needed.
--- NOTE | 2018-07-30 12:28 | NUR ---
RN NOTES 1220 NOTED WITH SECOND STOOL LIQUID WITH VERY SMALL PARTICLES, YELLOWISH IN COLOR 1227 [employer] OFFICER MADE AWARE TAKEN TO OR FOR PROCEDURE WILL CONTINUE TO MONITOR UPON RETURN TO UNIT
--- NOTE | 2018-07-30 14:08 | NUR ---
RN NOTES PATIENT IN OR FOR COLONOSCOPY Addendum: 07/30/18 at 1408 by KEVIN CASTREJON RN Amended: Links added.
[2018-07-30] MEDS: SOD FERRIC GLUC 125 MG in IV NS 0.9% 100 ML IV SCH (15:34)
--- NOTE | 2018-07-30 16:51 | NUR ---
RN NOTES SEEN AND EXAMINED BY HOSPITALIST PER DR. MOHAN ALVAREZ PT IS CLEAR MEDICALLY TO GO, RELAYED FINDINGS OF COLONOSCOPY WITH NO NEW ORDERS, REVIEWED DISCHARGE ORDERS WITH PATIENT AND DISCHARGE INSTRUCTIONS WITH NOTED VERBAL UNDERSTANDING NOTED. NO PICTURES OF SKIN NEEDED PATIENT PROVIDED WITH TAP CARD, PT PROVIDED AN ADDRESS TO GO TO AND REVIEWED HOMELESS WAIVER WITH GRINDING MACHINE OPERATOR AUTOMATIC. NO NOTED ACUTE DISTRESS, IV REMOVED PT DISCHARGED AND WILL CONTINUE TO ASSIST WITH DISCHARGE PROCESS
--- NOTE | 2018-07-30 17:25 | NUR ---
RN NOTES PATIENT AWAKE ALERT AND VERBALLY RESPONSIVE, ABLE TO MAKE NEEDS KNOWN, RESPIRATIONS EVEN AND UNLABORED, IN NO APPARENT PAIN OR DISCOMFORT, PATIENT WITH DISCHARGE ORDERS. REINFORCED DISCHARGE EDUCATION WITH NOTED VERBAL UNDERSTANDING. ASSISTED TO LOBBY BY WEB OPERATIONS SPECIALIST AND SECURITY PT CONTINUOUSLY RAISING VOICE TO STAFF, APPROACHED IN CALM AND UNHURRIED MANNER. DISCHARGED IN STABLE CONDITION
== END 2018-07-30 17:25 | disposition home or self-care (01) | DRG 241 ==
LOC: ER 21:18 → TELE1 23:36 → MEDSG1 07-30 09:16
PROVIDERS: ADMIT Student in an Organized Health Care Education/Training Program; ATTEND Nurse Practitioner Acute Care
PROC: 30233N1 Transfusion of Nonautologous Red Blood Cells into Peripheral Vein, Percutaneous Approach (ICD-10-PCS; principal; 2018-07-25)
PROC: 0DB78ZX Excision of Stomach, Pylorus, Via Natural or Artificial Opening Endoscopic, Diagnostic (ICD-10-PCS; 2018-07-29)
PROC: 0DBP8ZX Excision of Rectum, Via Natural or Artificial Opening Endoscopic, Diagnostic (ICD-10-PCS; 2018-07-30)
DX: K29.71 Gastritis, unspecified, with bleeding (principal); D70.9 Neutropenia, unspecified; D62 Acute posthemorrhagic anemia; F20.9 Schizophrenia, unspecified; E44.1 Mild protein-calorie malnutrition; I10 Essential (primary) hypertension; I25.10 Atherosclerotic heart disease of native coronary artery without angina pectoris; K21.9 Gastro-esophageal reflux disease without esophagitis; M81.0 Age-related osteoporosis without current pathological fracture; K44.9 Diaphragmatic hernia without obstruction or gangrene; Z59.0 Homelessness; F31.9 Bipolar disorder, unspecified; E66.9 Obesity, unspecified; Z68.37 Body mass index [BMI] 37.0-37.9, adult; K57.30 Diverticulosis of large intestine without perforation or abscess without bleeding
CPT/HCPCS: 36415; 71045-TC; 80048-TC; 80053-TC; 80061-TC; 80076-TC; 82272-TC; 82378; 82728-TC; 83540-TC; 83735-TC; 83880; 84100-TC; 84443-TC; 84484-TC; 85025-TC; 85027-TC; 85610-TC; 85730-TC; 86850-TC; 86921-TC; 87081-TC; 88305-TC; 88313-TC; 88342; A6402; C9113; G0378; J2704; J2916; J3480; J3490; J7030; J7040; J7042; J7050; P9016-BL

== ENCOUNTER 2019-03-21 20:46 | Inpatient (IN) | payer OTHER ==
[~2019-03-21] VITALS: Ht 162.6 cm; Wt 102.1 kg
--- NOTE | 2019-03-21 22:09 | NUR ---
PT TO ER BED 6. PT CAME TO ER WITH C/O GENERALIZED BODY PAIN 01/27. SHE STATES THAT SHE HAS BEEN "PUSHING BACK THE DATES" TO COME TO ER. SHE DOES NOT REMEMBER THE NAME OF THE BLOOD PRESSURE MEDICATION THAT SHE IS TAKING, BUT SHE REMEMBERS TAKING PROTONIX. PT STATES THAT SHE IS ANEMIC. AAOX4. NO SOB. CONNECTED TO MONITOR. NOT IN ANY DISTRESS.
[2019-03-21] MEDS ORDERED: PANTOPRAZOLE 40 MG VIAL ONE (22:25)
[2019-03-21] MEDS ORDERED: HYDROCODONE/APAP 10/325MG 1 EA TABLET ONE (22:25)
[2019-03-21] MEDS ORDERED: IV NS 0.9% 1,000 ML BAG IV ONE (22:30)
[2019-03-21] MEDS ORDERED: HYDROCODONE/APAP 10/325MG 1 EA TABLET PO ONE (22:30)
[2019-03-21] MEDS ORDERED: PANTOPRAZOLE 80 MG in IV NS 0.9% 100 ML IV ONE (22:30)
--- NOTE | 2019-03-21 22:35 | NUR ---
BLOOD DRAWN AND SENT TO LAB
[2019-03-21 22:53] LABS: CARBON DIOXIDE 29 mmol/L (21-32); CHLORIDE 103 mmol/L (98-107); CREATININE 0.7 mg/dL (0.6-1.3); EOSINOPHILS % (AUTO) 0.4 % (0.0-6.0); GLUCOSE 103 mg/dL (74-106); LYMPHOCYTES # (AUTO) 0.9 /CMM (0.8-4.8); LYMPHOCYTES % (AUTO) 16.5 % (20.0-44.0); MEAN CORPUSCULAR HGB CONC 29 g/dl (31.0-36.0); MEAN CORPUSCULAR VOLUME 60 fL (82-100); MONOCYTES # (AUTO) 0.6 /CMM (0.1-1.30); MONOCYTES % (AUTO) 10.6 % (2.0-12.0); NEUTROPHILS # (AUTO) 3.9 /CMM (1.8-8.9); NEUTROPHILS % (AUTO) 72.5 % (43.0-81.0); PLATELET COUNT (AUTO) 165 /CMM (150-450); POTASSIUM 3.4 mmol/L (3.5-5.1); RED BLOOD CELL COUNT(AUTO) 2.91 MIL/uL (4.0-5.2); SODIUM SERUM 140 mmol/L (136-145); UREA NITROGEN, BLOOD 14 mg/dL (7-18); WHITE BLOOD COUNT (AUTO) 5.3 K/uL (4.3-11.0)
[2019-03-21 22:58] LABS: ALANINE AMINOTRANSFERASE 15 U/L (12-78); ALBUMIN 3.6 g/dL (3.4-5.0); ALKALINE PHOSPHATASE 77 U/L (46-116); ASPARTATE AMINOTRANSFERASE 8 U/L (15-37); BILIRUBIN,DIRECT 0.1 mg/dL (0.0-0.2); BILIRUBIN,TOTAL 0.4 mg/dL (0.2-1.0); HEMATOCRIT 17 % (33-45); LIPASE 117 U/L (73-393); TOTAL PROTEIN, SERUM 6.5 g/dL (6.4-8.2)
--- NOTE | 2019-03-21 23:36 | NUR ---
PATIENT SIGNED AND UNDERSTANDS BLOOD TRANSFUSION.
--- NOTE | 2019-03-21 23:41 | NUR ---
PT IN BED 6. AWAKE AND RESTING IN BED COMFORTABLY. NOT IN ANY DISTRESS. AWARE OF BLOOD TRANSFUSION TO BE GIVEN. CALL LIGHT WITHIN REACH.
[2019-03-22] VITALS (15 sets, daily range): BP systolic 107–152; BP diastolic 63–94
--- NOTE | 2019-03-22 00:15 | NUR ---
BLOOD TRANSFUSION STARTED
[2019-03-22 00:20] LABS: LYMPHOCYTES % (MANUAL) 14 % (16-48); MONOCYTES % (MANUAL) 5 % (0-11.0); NEUTROPHILS % (MANUAL) 81 (42-76)
--- NOTE | 2019-03-22 01:22 | NUR ---
BED ASSIGNMENT 307-2
--- NOTE | 2019-03-22 01:53 | NUR ---
report given to david GARZA for LEXY.
--- NOTE | 2019-03-22 01:54 | NUR ---
first unit of blood transfusion still infusing, will finish on admission.
[2019-03-22] MEDS ORDERED: ZOLPIDEM TARTRATE 5 MG TABLET PO PRN (02:00)
[2019-03-22] MEDS ORDERED: MAG HYDROX/AL HYDROX/SIMETH 30 ML UDC PO PRN (02:00)
[2019-03-22] MEDS ORDERED: HYDROCODONE/APAP 5/325MG 1 EACH TABLET PO PRN (02:00)
[2019-03-22] MEDS ORDERED: Z GUARD REMEDY 2 OZ OINT TP PRN (02:00)
[2019-03-22] MEDS ORDERED: ONDANSETRON HCL/PF 4 MG/2 ML VIAL IVP PRN (02:00)
[2019-03-22] MEDS ORDERED: ACETAMINOPHEN 325 MG TABLET PO PRN (02:00)
[2019-03-22] MEDS ORDERED: MAGNESIUM HYDROXIDE 30 ML UDC PO PRN (02:00)
--- NOTE | 2019-03-22 02:15 | NUR ---
MACADAM RAKERFINE ARTS MODEL NOTES Patient arrived to floor in stable condition via gurney accompanied by ER staff. Patient in stable condition A/O X2-3, on room air saturation 95%. Able to ambulate, but with assistance of walker. No signs of acute distress and no complaints of pain. IV located on L wrist #18 continuing blood transfusion received from the ER. Tele monitors placed reading SR 74. Safety precaution in place with bed in lowest position, breaks on, side rails up X2, and call light within reach. Belongings inventory completed by the assigned PARING MACHINE OPERATOR. All current needs are attended to. Will continue to monitor.
[2019-03-22] MEDS: IV D5/0.45 NACL 1,000 ML IV PRN (03:13)
--- NOTE | 2019-03-22 03:24 | NUR ---
SIGNAL TOWER OPERATOR NOTES 1 UNIT PRBC BLOOD TRANSFUSION FROM ED ENDED AT 312. PATIENT APPEARED WITH NO ACUTE DISTRESS OR ADVERSE SIDE AFFECTS FROM TRANSFUSION. STARTED D5 1/2 NS @ 75 ML/HR ORDERED. WILL CONTINUE TO MONITOR.
--- NOTE | 2019-03-22 07:10 | NUR ---
NETWORK SUPPORT MANAGER CLOSING NOTES Patient is resting in bed A/O x 2-3. No signs of acute distress, SOB, or complaints of pain. Breathing is even and unlabored. Patient is able to ambulate, but with assistance of walker. IV located on L wrist #18 running D5 1/2 NS @ 75 ml/ hr. Tele monitors showing SR 76. Safety precautions in place with bed in lowest position, side rails up X2, breaks on, and call light within reach. All needs were met. Will endorse to oncoming shift about sukhdev.
--- NOTE | 2019-03-22 07:45 | NUR ---
MS/RN Patient received Patient received from processes chemical design engineer. A/O X3-4, vital signs stable. Appears in no distress or discomfort at this time. All needs attended, call light within reach. Will continue to monitor and ensure safety.
[2019-03-22] MEDS ORDERED: AMLO10TA7 PO (09:11)
[2019-03-22] MEDS ORDERED: CHOL100045 PO (09:11)
[2019-03-22 13:06] LABS: BASOPHILS % (AUTO) 0.8 % (0.0-2.0); EOSINOPHILS % (AUTO) 2.3 % (0.0-6.0); LYMPHOCYTES # (AUTO) 0.7 /CMM (0.8-4.8); LYMPHOCYTES % (AUTO) 21.5 % (20.0-44.0); MEAN CORPUSCULAR HGB CONC 29 g/dl (31.0-36.0); MEAN CORPUSCULAR VOLUME 62 fL (82-100); MONOCYTES # (AUTO) 0.6 /CMM (0.1-1.30); MONOCYTES % (AUTO) 16.2 % (2.0-12.0); NEUTROPHILS % (AUTO) 59.2 % (43.0-81.0); PLATELET COUNT (AUTO) 225 /CMM (150-450); RED BLOOD CELL COUNT(AUTO) 2.83 MIL/uL (4.0-5.2); WHITE BLOOD COUNT (AUTO) 3.4 K/uL (4.3-11.0)
[2019-03-22 13:28] LABS: HEMATOCRIT 18 % (33-45); HEMOGLOBIN 5.1 g/dL (11.5-14.8)
--- NOTE | 2019-03-22 13:39 | NUR ---
MS/RN H&H Call received from lab, H&H 5.05/07, Dr Leon informed. Order received for patient to be transfused with two unitas PRBC's.
[2019-03-22 14:16] LABS: LYMPHOCYTES % (MANUAL) 26 % (16-48); MONOCYTES % (MANUAL) 9 % (0-11.0); NEUTROPHILS % (MANUAL) 65 (42-76)
--- NOTE | 2019-03-22 16:37 | NUR ---
MS/RN Blood transfusion One unit blood transfusion in progress. Vital signs recorded as per hospital protocol.
[2019-03-22] MEDS: PANTOPRAZOLE 40 MG VIAL IV SCH (17:30)
--- NOTE | 2019-03-22 17:44 | NUR ---
MS/RN Blood transfusion reassessment Blood transfusion continues, no reaction noted, vital signs remain within normal limits.
--- NOTE | 2019-03-22 18:41 | NUR ---
MS/RN End note Patient remains in stable condition. Blood transfusion in progress, once current unit has been transfused, one further unit to be ordered and administered as per Dr Leon as H&H 5.05/07. All needs attended, will endorse to chief station engineer.
--- NOTE | 2019-03-22 19:10 | NUR ---
MS RN NOTE RECEIVED PT IN STABLE CONDITION A/O X4 CURRENTLY WATCHING TV. RECEIVING 1 UNIT PRBCs AWAITING FOR IT TO BE FINISHED. 1 UNIT MORE TO BE TRANSFUSED. NO SIGNS OF SOB OR DISTRESS, NO C/O PAIN. ALL CURRENT NEEDS ATTENDED TO. SAFETY PRECAUTIONS IN PLACE. WILL CONT. TO MONITOR.
--- NOTE | 2019-03-22 19:30 | NUR ---
MS RN NOTE BLOOD TRANSFUSION ENDED. PT REMAINS IN STABLE CONDITION, NO SIGNS OF SOB OR DISTRESS. WILL ORDER SECOND UNIT NOW PER MD ORDER.
--- NOTE | 2019-03-22 20:13 | NUR ---
MS RN NOTE 1 UNIT PRBCs STARTED ON PT. TOLERATING WELL, VS 107/82,82, 98.3,98%,18. WILL CONT. TO MONITOR.
--- NOTE | 2019-03-22 22:56 | NUR ---
MS RN NOTE BLOOD TRANSFUSION COMPLETED, PT REMAINS IN STABLE CONDITION. WILL CONT. TO MONITOR.
--- NOTE | 2019-03-22 23:00 | NUR ---
MS RN NOTE ATTEMPTED TO HAND IV FLUIDS FOR PT. PT REFUSING, STATING THAT FLUIDS WILL MAKE HER NEED TO USE THE RESTROOM THROUGHOUT NIGHT. WILL ATTEMPT AGAIN LATER.
[2019-03-23] VITALS (7 sets, daily range): BP systolic 111–128; BP diastolic 64–77
[2019-03-23] MEDS: IV D5/0.45 NACL 1,000 ML IV PRN (02:43)
--- NOTE | 2019-03-23 06:18 | NUR ---
MS RN NOTE PT REMAINS IN STABLE CONDITION A/O X4 CURRENTLY RESTING IN BED. IV IN R WRIST #[address] WITH IVF INFUSING, TOLERATING WELL. NO SIGNS OF SOB OR DISTRESS, NO C/O PAIN. ALL CURRENT NEEDS ATTENDED TO. SAFETY PRECAUTIONS IN PLACE. WILL CONT. TO MONITOR AND ENDORSE TO NEXT SHIFT FOR LEXY.
[2019-03-23 06:23] LABS: BASOPHILS % (AUTO) 0.9 % (0.0-2.0); EOSINOPHILS % (AUTO) 2.9 % (0.0-6.0); HEMATOCRIT 24 % (33-45); HEMOGLOBIN 7.1 g/dL (11.5-14.8); LYMPHOCYTES # (AUTO) 0.9 /CMM (0.8-4.8); LYMPHOCYTES % (AUTO) 23.5 % (20.0-44.0); MEAN CORPUSCULAR HGB CONC 30 g/dl (31.0-36.0); MEAN CORPUSCULAR VOLUME 68 fL (82-100); MONOCYTES # (AUTO) 0.6 /CMM (0.1-1.30); NEUTROPHILS # (AUTO) 2.4 /CMM (1.8-8.9); NEUTROPHILS % (AUTO) 58.7 % (43.0-81.0); PLATELET COUNT (AUTO) 245 /CMM (150-450); RED BLOOD CELL COUNT(AUTO) 3.47 MIL/uL (4.0-5.2)
[2019-03-23 06:34] LABS: ALBUMIN 3.2 g/dL (3.4-5.0); BILIRUBIN,TOTAL 0.8 mg/dL (0.2-1.0); CREATININE 0.4 mg/dL (0.6-1.3); MAGNESIUM 2.1 mg/dL (1.8-2.4); PHOSPHORUS 3.9 mg/dL (2.5-4.9); POTASSIUM 3.4 mmol/L (3.5-5.1); TOTAL PROTEIN, SERUM 5.9 g/dL (6.4-8.2)
--- NOTE | 2019-03-23 08:00 | NUR ---
MS RN OPENING NOTES Received Patient asleep and resting in bed. VS stable with no acute distress. Breathing even and unlabored on room air with no respiratory distress. No signs and symptoms of pain at this time. 18g PIV on left wrist clean, intact, patent and flushing well. Patient refused IVF at this time. Safety precautions in place. Bed locked and set to lowest position with side rails x 2 up. All needs rendered at this time. Call light within reach. Will continue to monitor.
[2019-03-23] MEDS: PANTOPRAZOLE 40 MG VIAL IV SCH ×2 (09:32→16:38)
[2019-03-23 10:54] LABS: HEMOGLOBIN 6.8 g/dL (11.5-14.8)
[2019-03-23] MEDS ORDERED: POTASSIUM CHLORIDE 20 MEQ POWDER PACKET PO SCH (11:00)
--- NOTE | 2019-03-23 14:36 | NUR ---
Social service consult requested by Trev Leon MD for homelessness. Pt is a 63 year old female who was admitted to [facility] for anemia. Pt was sitting up in her bed eating lunch during assessment. Pt was alert and oriented x 4 (person, place, time, and situation.) Pt is ambulatory. Pt denies being homeless and states that she lives by herself in an apartment at the following address: [address] [place] [address], [address], [place] [address]; [phone]. Pt declined to provide other information for assessment, including; drug or alcohol use, any history of psychiatric diagnosis, or source and amount of financial income. Pt denies suicidal and homicidal ideation. Pt denies auditory and visual hallucinations. Pt declined emergency housing referrals because she states she is not homeless. No other services needed at this time. SW is available if needed.
--- NOTE | 2019-03-23 16:15 | NUR ---
MS RN NOTES Began blood transfusion at this time. Verified PRBC with Leticia GARZA. VS stable with no acute distress. Breathing even and unlabored on room air with no respiratory distress. Denies pain. Will continue to monitor.
--- NOTE | 2019-03-23 16:30 | NUR ---
MS RN NOTES Patient in stable condition. VS stable with no acute distress. Breathing even and unlabored on room air with no respiratory distress. Denies pain nor discomfort. No signs and symptoms of allergic reaction noted. Will continue to monitor.
--- NOTE | 2019-03-23 19:20 | NUR ---
MS RN NOTES Completed blood transfusion at this time. Patient in stable condition. VS stable with no acute distress. Breathing even and unlabored on room air with no respiratory distress. Denies pain. No signs and symptoms of allergic reaction at this time. Will continue to monitor.
--- NOTE | 2019-03-23 19:30 | NUR ---
MS RN CLOSING NOTES Patient awake and resting in bed. VS stable with no acute distress. Breathing even and unlabored on room air with no respiratory distress. Denies pain. 18g PIV on left wrist clean, intact, patent and flushing well with D51/2NS running at 75ml/hr. Safety precautions in place. Bed locked and set to lowest position with side rails x 2 up. All needs rendered at this time. Call light within reach. Will endorse plan of care to oncoming shift.
--- NOTE | 2019-03-23 19:35 | NUR ---
MS RN NOTES RECEIVED ON BED,S/P BLOOD TRANSFUSION OF 1 UNIT PRBC FOR H/H 6.8/.IVF D5 1/2 NS AT 75ML/HR RATE IN PROGRESS VIA IV PUMP ON LEFT WRIST.MONITOR BOWEL MOVEMENT FOR ANY BLOOD IN THE STOOL.DENIES DISCOMFORTS AT THE MOMENT,CALL LIGHT IN REACH,NEEDS ANTICIPATED.
--- NOTE | 2019-03-23 21:26 | NUR ---
MS RN NOTES NOTED RIGHT APPEARS SWOLLEN,DENIES PAIN.OFFERED TO PUT NEW SALINE LOCK BUT REFUSED.
[2019-03-24] MEDS: IV D5/0.45 NACL 1,000 ML IV PRN ×2 (04:09→18:09)
--- NOTE | 2019-03-24 06:15 | NUR ---
MS RN NOTES NEW SALINE LOCK PLACE ON LEFT HAND #22,FLUSHED AND KEPT PATENT.
--- NOTE | 2019-03-24 06:25 | NUR ---
MS RN NOTES SLEPT WITH INTERVALS,AMBULATES TO THE TOILET WITH STEADY GAIT.IVF INFUSING WELL ON LEFT HAND SALINE LOCK.ON CLEAR LIQUID DIET.CALL LIGHT IN REACH,NEEDS ATTENDED.
[2019-03-24 07:06] LABS: BASOPHILS % (AUTO) 0.6 % (0.0-2.0); EOSINOPHILS % (AUTO) 2.7 % (0.0-6.0); HEMATOCRIT 26 % (33-45); HEMOGLOBIN 7.8 g/dL (11.5-14.8); LYMPHOCYTES # (AUTO) 0.9 /CMM (0.8-4.8); MEAN CORPUSCULAR HGB CONC 31 g/dl (31.0-36.0); MEAN CORPUSCULAR VOLUME 69 fL (82-100); MONOCYTES # (AUTO) 0.7 /CMM (0.1-1.30); MONOCYTES % (AUTO) 18.1 % (2.0-12.0); NEUTROPHILS % (AUTO) 53.6 % (43.0-81.0); PLATELET COUNT (AUTO) 230 /CMM (150-450); RED BLOOD CELL COUNT(AUTO) 3.68 MIL/uL (4.0-5.2); WHITE BLOOD COUNT (AUTO) 3.8 K/uL (4.3-11.0)
[2019-03-24 07:29] LABS: CREATININE 0.5 mg/dL (0.6-1.3); POTASSIUM 3.4 mmol/L (3.5-5.1)
[2019-03-24 08:16] VITALS: BP 133/74
[2019-03-24 08:33] LABS: EOSINOPHILS % (MANUAL) 1 % (0-4); LYMPHOCYTES % (MANUAL) 20 % (16-48); MONOCYTES % (MANUAL) 13 % (0-11.0); NEUTROPHILS % (MANUAL) 66 (42-76)
[2019-03-24] MEDS: PANTOPRAZOLE 40 MG VIAL IV SCH ×2 (09:37→18:06)
[2019-03-24] MEDS ORDERED: POTASSIUM CHLORIDE 20 MEQ TAB.PRT.SR PO SCH (11:00)
[2019-03-24 15:36] LABS: HEMOGLOBIN 7.1 g/dL (11.5-14.8)
[2019-03-24 17:05] VITALS: BP 134/82
--- NOTE | 2019-03-24 19:27 | NUR ---
RN OPENING NOTES RECEIVED PATIENT IN BED, AWAKE RESTING COMFORTABLY. PATIENT JUST TRANSFERRED FROM [facility]. NO SIGNS OF RESPIRATORY DISTRESS, NO SHORTNESS OF BREATH NOTED. IVF D5 1/2 NS AT 75 ML/HR VIA IV ON LEFT WRIST. PATIENT DENIES PAIN/DISCOMFORT AT THIS TIME. SAFETY PRECAUTIONS IMPLEMENTED; CALL LIGHT WITHIN REACH, BED LOWEST POSITION, BED LOCKED, BILATERAL UPPER SIDE RAILS UP. WILL CONTINUE TO MONITOR.
[2019-03-24 20:00] VITALS: BP 138/88
--- NOTE | 2019-03-24 22:50 | NUR ---
RN MS CONTINUITY OF CARE NOTES RECEIVED PATIENT IN BED AWAKE ALERT AND ORIENTED X4, RESPIRATIONS EVEN AND UNLABORED WITH EQUAL RISE AND FALL OF CHEST, DENIES ANY PAIN OR DISCOMFORT AT THIS TIME. IV TO LEFT HAND REMOVED DISLODGED, NEW IV INSERTED TO RIGHT UPPER ARM #24 G INTACT AND PATENT, NO REDNESS, NO INFILTRATION PRESENT, IVF RUNNING ORDERED, ORIENTED TO STAFF AND CALL LIGHT AND KEPT WITHIN REACH, SAFETY PRECAUTIONS IN PLACE LOW BED AND LOCKED, BED ALARM IN PLACE, ALL NEEDS ATTENDED AT THIS TIME, REMAINS COMFORTABLE WILL CONTINUE TO MONITOR AND ATTEND TO NEEDS.
--- NOTE | 2019-03-24 22:57 | NUR ---
SCENIC DESIGNER OF CARE PATIENT IN STABLE CONDITION. REPORT GIVEN AND TRANSFER OF CARE TO GREG BECERRA.
--- NOTE | 2019-03-25 06:33 | NUR ---
RN MS CLOSING NOTES PATIENT IN BED AWAKE ALERT AND ORIENTED X4, RESPIRATIONS EVEN AND UNLABORED WITH EQUAL RISE AND FALL OF CHEST, DENIES ANY PAIN OR DISCOMFORT AT THIS TIME. IV SITE TO RIGHT UPPER ARM #24 G INTACT AND PATENT, NO REDNESS, NO INFILTRATION PRESENT, IVF RUNNING ORDERED, CALL LIGHT KEPT WITHIN REACH, SAFETY PRECAUTIONS IN PLACE LOW BED AND LOCKED, BED ALARM IN PLACE, ALL NEEDS ATTENDED AT THIS TIME, REMAINS COMFORTABLE WILL CONTINUE TO MONITOR AND ATTEND TO NEEDS AND ENDORSE TO NEXT SHIFT.
[2019-03-25 06:54] LABS: BASOPHILS % (AUTO) 0.6 % (0.0-2.0); EOSINOPHILS % (AUTO) 2.5 % (0.0-6.0); HEMATOCRIT 27 % (33-45); LYMPHOCYTES % (AUTO) 24.4 % (20.0-44.0); MEAN CORPUSCULAR HGB CONC 30 g/dl (31.0-36.0); MEAN CORPUSCULAR VOLUME 70 fL (82-100); MONOCYTES # (AUTO) 0.6 /CMM (0.1-1.30); MONOCYTES % (AUTO) 16.1 % (2.0-12.0); NEUTROPHILS # (AUTO) 2.3 /CMM (1.8-8.9); NEUTROPHILS % (AUTO) 56.4 % (43.0-81.0); PLATELET COUNT (AUTO) 241 /CMM (150-450); RED BLOOD CELL COUNT(AUTO) 3.82 MIL/uL (4.0-5.2)
[2019-03-25 07:25] LABS: CALCIUM, SERUM 8.2 mg/dL (8.5-10.1); CREATININE 0.5 mg/dL (0.6-1.3); MAGNESIUM 1.9 mg/dL (1.8-2.4); POTASSIUM 3.7 mmol/L (3.5-5.1)
[2019-03-25 08:00] VITALS: BP 169/98
--- NOTE | 2019-03-25 09:08 | NUR ---
MS RN OPENING NOTES Received Patient resting in bed. VS stable with no acute distress. Breathing even and unlabored on room air with no respiratory distress. Denies pain. 24g PIV on LAVERNE clean, intact, patent and flushing well with D51/2 NS running at 75ml/hr. Safety precautions in place. Bed locked and set to lowest position with side rails x 2 up. All needs rendered at this time. Call light within reach. Will continue to monitor.
[2019-03-25] MEDS: PANTOPRAZOLE 40 MG VIAL IV SCH ×2 (09:31→17:00)
[2019-03-25 16:00] VITALS: BP 158/80
--- NOTE | 2019-03-25 19:13 | NUR ---
MS RN CLOSING NOTES Patient eating in bed. VS stable with no acute distress. Breathing even and unlabored on room air with no respiratory distress. Denies pain. 24g PIV on LAVERNE clean, intact, patent and flushing well. Patient to be discharged but refuses to leave. Patient states that she wants a "taxi voucher". Offered and refused TAP card. Medication reconciliation and discharge order reviewed and explained to Patient. Patient verbalized understanding. All belongings prepared for discharge. Patient will follow up with PCP in 1 week and follow up with GI as scheduled. Safety precautions in place. Bed locked and set to lowest position with side rails x 2 up. All needs rendered at this time. Call light within reach. Will endorse plan of care to oncoming shift.
--- NOTE | 2019-03-25 19:40 | NUR ---
RN NOTES RECEIVED PATIENT AWAKE, ALERT ORIENTED X4, ALL PAPER WORK GIVEN, DISCHARGE PLANNING GIVEN, HEALTH TEACHINGS GIVEN, HOMELESS PATIENT WAIVER FORM SIGNED, AWAITING FOR TAXI VOUCHER, PATIENT WILL GO TO [address] [place] [address], [id number] PROVIDED BY PATIENT, ALL NEEDS ATTENDED, SAFETY MEASURES IN PLACE, KEPT CLEAN DRY AND COMFORTABLE. WILL MONITOR ACCORDINGLY.
[2019-03-25 20:00] VITALS: BP 151/96
[2019-03-25 20:18] VITALS: BP_SYST 119; BP_SYST 151; BP_DIAS 69; BP_DIAS 96
--- NOTE | 2019-03-25 21:02 | NUR ---
PRIMARY CARE PROVIDER NOTES: PATIENT LEFT THE UNIT AT 2102, ALL NEEDS ATTENDED, ACCOMPANIED BY CHAU GIBBONS AND NILAY, TAXI VOUCHER GIVEN,
--- NOTE | 2019-03-25 21:04 | NUR ---
ESTABLISHMENT GUIDE NOTES ALL HEALTH TEACHINGS GIVEN, PATIENT LEFT THE UNIT MEDICALLY STABLE, VITAL SIGNS WITHIN NORMAL LIMITS, NO SIGNS OF DISTRESS, CHARGE NURSE AWARE OF DISCHARGE.
== END 2019-03-25 21:05 | disposition home or self-care (01) | DRG 254 ==
LOC: ER 20:49 → TELE 03-22 01:24 → MED 03-22 09:18
PROVIDERS: ADMIT Family Medicine; ATTEND Family Medicine
DX: K55.20 Angiodysplasia of colon without hemorrhage (principal); D62 Acute posthemorrhagic anemia; D50.9 Iron deficiency anemia, unspecified; F25.9 Schizoaffective disorder, unspecified; E66.9 Obesity, unspecified; I10 Essential (primary) hypertension; I25.10 Atherosclerotic heart disease of native coronary artery without angina pectoris; M81.0 Age-related osteoporosis without current pathological fracture; Z68.38 Body mass index [BMI] 38.0-38.9, adult; E87.6 Hypokalemia; Z59.0 Homelessness; Z98.890 Other specified postprocedural states; F31.9 Bipolar disorder, unspecified; I70.0 Atherosclerosis of aorta; Z79.899 Other long term (current) drug therapy
CPT/HCPCS: 36415; 71045-TC; 80048-TC; 80053-TC; 80061-TC; 80076-TC; 83540-TC; 83690-TC; 83735-TC; 84100-TC; 84484-TC; 85025-TC; 85027-TC; 85730-TC; 86850-TC; 86921-TC; 87081-TC; 97535-TC; C9113; G0378; J3490; J7030; J7042; J7050; J7060; P9016-BL

== ENCOUNTER 2019-04-21 18:51 | Inpatient (IN) | payer OTHER ==
[~2019-04-21] VITALS: Ht 167.6 cm; Wt 101.2 kg
[~2019-04-21 18:51] MED LIST changes: +AMLO10TA7 PO; +CHOL100045 PO; -LOSA50TA3 PO; -QUET25TA PO
--- NOTE | 2019-04-21 20:14 | NUR ---
BLOOD SENT TO LAB WITH MOLD FILLING OPERATOR
--- NOTE | 2019-04-21 20:23 | NUR ---
PT CAME TO BED 3 ER C/O NAUSEA, VOMITING. PT STATES THAT SHE HAS NAUSEA AND VOMITING ONE TIME. PT ALSO HAS ABDOMINAL PAIN. AAOX4. NO SOB. BREATHING EVENLY AND UNLABORED. CONNECTED TO MONITOR.
[2019-04-21] MEDS ORDERED: IPRATROPIUM NEB FS 0.5 MG/2.5 ML AMPUL.NEB ONE (20:29)
[2019-04-21] MEDS ORDERED: ALBUTEROL FS 2.5 MG/3 ML VIAL.NEB ONE (20:29)
[2019-04-21] MEDS ORDERED: IV NS 0.9% 500 ML BAG IV ONE (20:30)
[2019-04-21] MEDS ORDERED: IPRATROPIUM NEB FS 0.5 MG/2.5 ML AMPUL.NEB NEB ONE (20:30)
[2019-04-21] MEDS ORDERED: ALBUTEROL FS 2.5 MG/3 ML VIAL.NEB NEB ONE (20:30)
[2019-04-21] MEDS ORDERED: methylPREDNISolone SOD SUCC 125 MG/2ML VIAL IV ONE (20:30)
[2019-04-21 20:43] LABS: BASOPHILS % (AUTO) 1.3 % (0.0-2.0); EOSINOPHILS % (AUTO) 0.6 % (0.0-6.0); LYMPHOCYTES # (AUTO) 0.7 /CMM (0.8-4.8); LYMPHOCYTES % (AUTO) 17.4 % (20.0-44.0); MEAN CORPUSCULAR HGB CONC 29 g/dl (31.0-36.0); MEAN CORPUSCULAR VOLUME 65 fL (82-100); MONOCYTES # (AUTO) 0.4 /CMM (0.1-1.30); MONOCYTES % (AUTO) 11.1 % (2.0-12.0); NEUTROPHILS # (AUTO) 2.7 /CMM (1.8-8.9); NEUTROPHILS % (AUTO) 69.6 % (43.0-81.0); PLATELET COUNT (AUTO) 266 /CMM (150-450); RED BLOOD CELL COUNT(AUTO) 2.47 MIL/uL (4.0-5.2); WHITE BLOOD COUNT (AUTO) 3.8 K/uL (4.3-11.0)
[2019-04-21 20:46] LABS: CARBON DIOXIDE 29 mmol/L (21-32); CHLORIDE 106 mmol/L (98-107); CREATININE 0.6 mg/dL (0.6-1.3); GLUCOSE 114 mg/dL (74-106); POTASSIUM 3.3 mmol/L (3.5-5.1); SODIUM SERUM 144 mmol/L (136-145); UREA NITROGEN, BLOOD 5 mg/dL (7-18)
[2019-04-21 20:50] LABS: HEMATOCRIT 16 % (33-45); HEMOGLOBIN 4.7 g/dL (11.5-14.8)
[2019-04-21 20:52] LABS: ALANINE AMINOTRANSFERASE 16 U/L (12-78); ALBUMIN 3.4 g/dL (3.4-5.0); ALKALINE PHOSPHATASE 70 U/L (46-116); ASPARTATE AMINOTRANSFERASE 12 U/L (15-37); BILIRUBIN,DIRECT 0.1 mg/dL (0.0-0.2); BILIRUBIN,TOTAL 0.5 mg/dL (0.2-1.0); LIPASE 71 U/L (73-393); TOTAL PROTEIN, SERUM 6.2 g/dL (6.4-8.2)
[2019-04-21] MEDS ORDERED: methylPREDNISolone SOD SUCC 125 MG/2ML VIAL ONE (20:52)
[2019-04-21 21:07] LABS: LYMPHOCYTES % (MANUAL) 15 % (16-48); MONOCYTES % (MANUAL) 10 % (0-11.0); NEUTROPHILS % (MANUAL) 75 (42-76)
--- NOTE | 2019-04-21 21:27 | NUR ---
DR. CORONEL AT BEDSIDE
[2019-04-21] MEDS ORDERED: ONDANSETRON HCL/PF - ER 4 MG/2 ML VIAL IV ONE (21:30)
[2019-04-21] MEDS ORDERED: ONDANSETRON HCL/PF 4 MG/2 ML VIAL ONE (21:31)
[2019-04-21] MEDS ORDERED: Z GUARD REMEDY 2 OZ OINT TP PRN (22:00)
[2019-04-21] MEDS ORDERED: ONDANSETRON HCL/PF 4 MG/2 ML VIAL IVP PRN (22:00)
--- NOTE | 2019-04-21 22:02 | NUR ---
FLU SWAB COLLECTED AND SENT TO LAB
[2019-04-21 22:31] LABS: IRON, SERUM 13 ug/dl (50-175); TOTAL IRON BINDING CAPACITY 361 ug/dl (250-450)
--- NOTE | 2019-04-21 22:54 | NUR ---
RECIEVED BED 118-2
--- NOTE | 2019-04-21 23:07 | NUR ---
IV INFILTRATED, BLOOD STOPPED. IV REMOVED. NEW IV 18G PLACED ON RIGHT FOREARM. BLOOD STARTED AGAIN.
--- NOTE | 2019-04-21 23:27 | NUR ---
REPORT GIVEN TO ADRIANA FOR LEXY.
[2019-04-22] VITALS (19 sets, daily range): BP systolic 115–174; BP diastolic 66–92
--- NOTE | 2019-04-22 | NUR ---
BEATER AND PULPER FEEDER OPENING NOTE RECEIVED PATIENT A/O X4 WITH NO SIGN OF ANY DISTRESS. PUT PATIENT ON 3L OF 02 TOLERATING WELL. PATIENT CURRENTLY RECEIVING FIRST UNIT OF PRBC. WILL MONITOR PATIENT FOR ANY CHANGES. SKIN IS INTACT. PATIENT WAS ABLE TO AMBULATE TO THE BED. ON MONITOR CURRENTLY SHOWING SINUS TACHY HE IN THE 100'S. ALL SAFETY PRECATIONS APPLIED WILL CONTINUE TO MONITOR PATIENT FOR LEXY.
[2019-04-22] MEDS: ACETAMINOPHEN 325 MG TABLET PO PRN ×2 (05:52→08:57)
[2019-04-22 06:43] LABS: BASOPHILS % (AUTO) 0.2 % (0.0-2.0); EOSINOPHILS % (AUTO) 0.1 % (0.0-6.0); HEMATOCRIT 22 % (33-45); LYMPHOCYTES # (AUTO) 0.4 /CMM (0.8-4.8); LYMPHOCYTES % (AUTO) 5.7 % (20.0-44.0); MEAN CORPUSCULAR HGB CONC 29 g/dl (31.0-36.0); MEAN CORPUSCULAR VOLUME 71 fL (82-100); MONOCYTES # (AUTO) 0.1 /CMM (0.1-1.30); NEUTROPHILS # (AUTO) 6.4 /CMM (1.8-8.9); PLATELET COUNT (AUTO) 287 /CMM (150-450); RED BLOOD CELL COUNT(AUTO) 3.04 MIL/uL (4.0-5.2); WHITE BLOOD COUNT (AUTO) 6.9 K/uL (4.3-11.0)
[2019-04-22 06:53] LABS: HEMOGLOBIN 6.3 g/dL (11.5-14.8)
[2019-04-22 07:11] LABS: THYROID STIMULATING HORMONE 0.431 uIU/mL (0.358-3.74)
[2019-04-22 07:28] LABS: ALBUMIN 3.4 g/dL (3.4-5.0); BILIRUBIN,TOTAL 0.6 mg/dL (0.2-1.0); CALCIUM, SERUM 8.4 mg/dL (8.5-10.1); CREATININE 0.7 mg/dL (0.6-1.3); MAGNESIUM 2.1 mg/dL (1.8-2.4); PHOSPHORUS 4.5 mg/dL (2.5-4.9); POTASSIUM 3.8 mmol/L (3.5-5.1); TOTAL PROTEIN, SERUM 6.4 g/dL (6.4-8.2)
--- NOTE | 2019-04-22 07:51 | NUR ---
AIR BOX TESTER CLOSING PATIENT IN BED CURRENTLY NO SIGN OF ANY DISTRESS. ON 3L OF 02 SATURATING IN THE 97%. ALL SAFETY PRECATIONS APPLIED. ENDORSED PATIENT TO MORNING SHIFT NURSE FOR LEXY.
--- NOTE | 2019-04-22 07:59 | NUR ---
FRUIT FARMWORKER NOTES PATIENT RECEIVED RESTING INSIDE ROOM. SLEEPING, EASILY AROUSABLE THROUGH VERBAL AND TACTILE STIMULI. BREATHING EVEN AND UNLABORED. NO ACUTE DISTRESS. DENIES ANY PAIN OR DISCOMFORT AT THIS TIME. S/P BLOOD TRANSFUSION X 2 BAGS PER PREVIOUS SHIFT. HGB POST BLOOD TRANSFUSION 6.3. MD AWARE. AWAITING ORDERS. WILL CONTINUE TO MONITOR. BED LOCKED AND IN LOW POSITION. BILATERAL UPPER SIDE RAILS UP AND LOCKED. CALL LIGHT WITHIN EASY REACH
[2019-04-22] MEDS: FERROUS SULFATE (325 MG) 325 MG/TAB TABLET PO SCH (08:57)
[2019-04-22] MEDS: CHOLECALCIFEROL 1,000 UNIT TABLET (VIT D3) PO SCH (08:57)
[2019-04-22] MEDS: AMLODIPINE BESYLATE 10 MG TABLET PO SCH (08:57)
[2019-04-22] MEDS: PANTOPRAZOLE 40 MG TABLET.DR PO SCH (08:57)
[2019-04-22 09:28] LABS: BAND % (MANUAL) 1 % (0.0-5.0); LYMPHOCYTES % (MANUAL) 4 % (16-48); NEUTROPHILS % (MANUAL) 95 (42-76)
--- NOTE | 2019-04-22 11:32 | NUR ---
BICYCLE REPAIRER NOTES DR GRAF PRESENT AT UNIT, AWARE OF HGB RESULT. WITH ORDER FOR ANOTHER CBC NOW. ORDER NOTED AND CARRIED OUT. WILL CONTINUE TO MONITOR
[2019-04-22 14:38] LABS: BASOPHILS % (AUTO) 0.3 % (0.0-2.0); EOSINOPHILS % (AUTO) 0.1 % (0.0-6.0); LYMPHOCYTES # (AUTO) 0.7 /CMM (0.8-4.8); MEAN CORPUSCULAR HGB CONC 31 g/dl (31.0-36.0); MEAN CORPUSCULAR VOLUME 70 fL (82-100); MONOCYTES # (AUTO) 0.8 /CMM (0.1-1.30); MONOCYTES % (AUTO) 11.8 % (2.0-12.0); NEUTROPHILS # (AUTO) 5.2 /CMM (1.8-8.9); NEUTROPHILS % (AUTO) 77.8 % (43.0-81.0); PLATELET COUNT (AUTO) 227 /CMM (150-450); RED BLOOD CELL COUNT(AUTO) 2.67 MIL/uL (4.0-5.2); WHITE BLOOD COUNT (AUTO) 6.7 K/uL (4.3-11.0)
[2019-04-22 14:51] LABS: HEMATOCRIT 19 % (33-45); HEMOGLOBIN 5.8 g/dL (11.5-14.8)
[2019-04-22] MEDS: SOD FERRIC GLUC 125 MG in IV NS 0.9% 100 ML IV SCH (15:15)
--- NOTE | 2019-04-22 15:16 | NUR ---
INSTRUCTOR TAP DANCING NOTES RECEIVED CBC REPORT WITH HGB RESULT OF 5.8 AND HCT RESULT 19. PLACED CALL TO [employer] AND PAGED DR GRAF. AWAITING CALL BACK. NO ACTIVE BLEEDING NOTED ON PATIENT. PATIENT REMAINS A/O X4. NO ACUTE DISTRESS. WILL CONTINUE TO MONITOR
--- NOTE | 2019-04-22 15:36 | NUR ---
PRODUCTION HAND NOTES RECEIVED CALL BACK FROM DR GRAF WITH ORDER TO TRANSFUSE 3 UNITS PRBC. ORDER NOTED AND CARRIED OUT. BLOOD BANK MADE AWARE. WILL CONTINUE TO MONITOR
--- NOTE | 2019-04-22 16:30 | NUR ---
DRUM STRAIGHTENER NOTES PATIENT SEEN AND EXAMINED BY DR TSAI. WITH ORDER TO HAVE PATIENT NPO. US OF ABDOMEN TO BE DONE TODAY. PLACED CALL TO RADIOLOGY AND MADE AWARE, VERBALIZED THAT US WILL BE DONE THIS AFTERNOON/EVENING. PATIENT MADE AWARE AND VERBALIZED UNDERSTANDING. EXPLAINED TO PATIENT THAT SHE NEEDS TO BE ON NPO STATUS FOR ULTRASOUND OF ABDOMEN. NOTED WITH FOOD AT BEDSIDE BUT PATIENT REFUSING TO GIVE FOOD AT BEDSIDE. VERBALIZED THAT SHE WILL NOT EAT THE FOOD BUT WANTS IT TO STAY BY HER. RISKS AND BENEFITS EXPLAINED BUT TO NO AVAIL, PATIENT STRONGLY REFUSED TO GIVE FOOD FROM BEDSIDE. CHARGE NURSE AWARE. WILL CONTINUE TO MONITOR
--- NOTE | 2019-04-22 18:32 | NUR ---
WIPING CLOTH CUTTER NOTES STARTED BLOOD TRANSFUSION. PATIENT TOLERATING WELL. PATIENT REMAINS AWAKE, A/O X 4. NO ACUTE DISTRESS. NO CHANGES IN LOC NOTED. NO BOWEL MOVEMENT AT THIS TIME. US ABD DONE, AWAITING RESULTS. PATIENT KEPT CLEAN, DRY AND COMFORTABLE. SAFETY PRECAUTIONS IN PLACE. WILL ENDORSE TO INCOMING SHIFT FOR LEXY. BED LOCKED AND IN LOW POSITION. BILATERAL UPPER SIDE RAILS UP AND LOCKED. CALL LIGHT WITHIN EASY REACH
--- NOTE | 2019-04-22 19:05 | NUR ---
ARCHITECTURAL ENGINEER NOTE RECEIVED PT IN STABLE CONDITION, A/O X4, CURRENTLY IN BED. NO SIGNS OF SOB OR DISTRESS, NO C/O PAIN OR N/V. NOTED WITH RFA #18 WITH BLOOD TRANSFUSION INFUSING, TOLERATING WELL. TELE MONITOR: W/ Sam 86. PT NPO FOR PROCEDURE IN AM, VERBALIZES UNDERSTANDING. ALL CURRENT NEEDS ATTENDED TO. BED LOW, LOCKED, UPPER RAILS UP, AND CALL LIGHT WITHIN REACH. WILL CONT. TO MONITOR.
[2019-04-22 20:50] LABS: BAND % (MANUAL) 2 % (0.0-5.0); LYMPHOCYTES % (MANUAL) 12 % (16-48); MONOCYTES % (MANUAL) 10 % (0-11.0); NEUTROPHILS % (MANUAL) 76 (42-76)
--- NOTE | 2019-04-22 21:14 | NUR ---
CHUCK SPLITTER NOTE 1 UNIT PRBCS TRANSFUSED, PT IN STABLE CONDITION NO SOB OR DISTRESS, NO REACTION NOTED.
--- NOTE | 2019-04-22 21:50 | NUR ---
NON MORSE INTERCEPT TECHNICIAN NOTE 1 UNIT PRBC STARTED,CHECKED WITH WILLEM RN, VITAL SIGNS STABLE, PT IN STABLE CONDITION. WILL CONT. TO CLOSELY MONITOR.
[2019-04-23] VITALS (11 sets, daily range): BP systolic 125–155; BP diastolic 55–93
--- NOTE | 2019-04-23 00:33 | NUR ---
WIRELESS WATCHER NOTE 1 UNIT PRBC INFUSED, PT TOLERATED WELL. REMAINS IN STABLE CONDITION. VSS.
--- NOTE | 2019-04-23 01:01 | NUR ---
FORWARD AIR CONTROLLER/AIR OFFICER NOTE 1 UNIT PRBCs STARTED, WILL CONT.TO MONITOR.
--- NOTE | 2019-04-23 03:15 | NUR ---
ENGINEERING LEADER NOTE 1 UNIT PRBCs INFUSED, PT IN STABLE CONDITION, TOLERATED WELL. VITAL SIGNS REMAIN STABLE.
--- NOTE | 2019-04-23 06:13 | NUR ---
MANAGER REGISTRATION NOTE PT REMAINS IN STABLE CONDITION, A/O X4, CURRENTLY RESTING IN BED. NO SIGNS OF SOB OR DISTRESS, NO C/O PAIN OR N/V. NOTED WITH RFA #18 S/L. TELE MONITOR: SR W/ PVCs 75. PT NPO, VERBALIZES UNDERSTANDING. ALL CURRENT NEEDS ATTENDED TO. BED LOW, LOCKED, UPPER RAILS UP, AND CALL LIGHT WITHIN REACH. WILL CONT. TO MONITOR AND ENDORSE TO NEXT SHIFT FOR LEXY.
--- NOTE | 2019-04-23 07:10 | NUR ---
TROUBLE SHOOTER OPENING NOTE RECEIVED PATIENT IN BED, A/O X4, CURRENTLY RESTING IN BED. NO SIGNS OF SOB OR DISTRESS, NO C/O PAIN OR N/V. NOTED WITH RFA #18 S/L. TELE MONITOR: SR W/ DEBORAHs. PT STILL ON NPO, VERBALIZES UNDERSTANDING. NO ADVERSE REACTIONS TO TRANSFUSIONS RECEIVED ON PREVIOUS SHIFT PER REPORT OF NIGHT NURSEL. ALL CURRENT NEEDS ATTENDED TO AND ANTICIPATED. BED LOW, LOCKED AND AT SEMI-ABDI'S POSITION. UPPER RAILS UP, AND CALL LIGHT WITHIN REACH. WILL CLOSELY MONITOR.
[2019-04-23] MEDS: PANTOPRAZOLE 40 MG TABLET.DR PO SCH (07:30)
[2019-04-23 08:01] LABS: BASOPHILS % (AUTO) 0.3 % (0.0-2.0); CALCIUM, SERUM 7.7 mg/dL (8.5-10.1); CREATININE 0.4 mg/dL (0.6-1.3); EOSINOPHILS % (AUTO) 0.5 % (0.0-6.0); HEMATOCRIT 25 % (33-45); HEMOGLOBIN 8.1 g/dL (11.5-14.8); LYMPHOCYTES # (AUTO) 0.9 /CMM (0.8-4.8); LYMPHOCYTES % (AUTO) 10.8 % (20.0-44.0); MEAN CORPUSCULAR HGB CONC 32 g/dl (31.0-36.0); MEAN CORPUSCULAR VOLUME 75 fL (82-100); MONOCYTES # (AUTO) 0.7 /CMM (0.1-1.30); MONOCYTES % (AUTO) 8.3 % (2.0-12.0); NEUTROPHILS # (AUTO) 6.7 /CMM (1.8-8.9); NEUTROPHILS % (AUTO) 80.1 % (43.0-81.0); PLATELET COUNT (AUTO) 181 /CMM (150-450); POTASSIUM 3.4 mmol/L (3.5-5.1); RED BLOOD CELL COUNT(AUTO) 3.39 MIL/uL (4.0-5.2); WHITE BLOOD COUNT (AUTO) 8.3 K/uL (4.3-11.0)
[2019-04-23] MEDS: CHOLECALCIFEROL 1,000 UNIT TABLET (VIT D3) PO SCH (09:00)
[2019-04-23] MEDS: FERROUS SULFATE (325 MG) 325 MG/TAB TABLET PO SCH (09:00)
[2019-04-23] MEDS: AMLODIPINE BESYLATE 10 MG TABLET PO SCH (09:00)
--- NOTE | 2019-04-23 10:20 | NUR ---
HYDRAULIC BULL RIVETER OPERATOR NOTE: PATIENT NOTED TO HAVE MONEY AT BEDSIDE AND EXPLAINED PROTOCOL AND OFFERED TO STORE IT IN SAFE BOX UNTIL DISCHARGE. PATIENT REFUSED AFTER THOROUGH EXPLANATION. WITNESSED WITH CHAU CORNEJO
--- NOTE | 2019-04-23 10:30 | NUR ---
RN NOTE: SPOKE WITH DR. GRAF REGARDING PATIENT'S NPO STATUS. AWARE AND INFORMED NURSE THAT CONSULT WITH DR. MARTINEZ STILL PENDING AND KEEP NPO UNTIL HIS EVALUATION IS FINISHED. DR. GRAF SAID HE SPOKE WITH HIM YESTERDAY AND THAT DR. MARTINEZ IS AWARE. CONTACTED DR. MARTINEZ FOR CONFIRMATION ABOUT ROUNDING WITH THE PATIENT TODAY. AWAITING RESPONSE.
[2019-04-23] MEDS: POTASSIUM CL. PREMIX PERIPHER. 50 ML IV SCH ×2 (13:04→15:06)
[2019-04-23] MEDS: SOD FERRIC GLUC 125 MG in IV NS 0.9% 100 ML IV SCH (16:51)
--- NOTE | 2019-04-23 17:04 | NUR ---
RN NOTE: PATIENT SEEN BY Jesus MARROQUIN AND VINICIO TO RESUME DIET. ORDER NOTED AND CARRIED OUT.
--- NOTE | 2019-04-23 19:10 | NUR ---
BRAND REPRESENTATIVE CLOSING NOTE PATIENT STILL IN BED, A/O X4, WITH MOMENTS OF CONFUSION. CURRENTLY RESTING IN BED. NO SIGNS OF SOB OR DISTRESS, NO C/O PAIN OR N/V. NOTED WITH RFA #18 S/L. TELE MONITOR: SINUS RHYTHM. DR. MARTINEZ MADE ROUNDS AND DIET RESUMED TO REGULAR AND TOLERATING WELL. ALL CURRENT NEEDS ATTENDED TO AND ANTICIPATED. BED LOW, LOCKED AND AT SEMI-ABDI'S POSITION. UPPER RAILS UP AND CALL LIGHT WITHIN REACH. PATIENT'S REFUSAL OF PLACING MONEY INTO THE LOCKED SAFE FOR SAFETY DOCUMENTED AND WILL INFORM NIGHT NURSE. ENDORSED FOR LEXY.
[2019-04-23] MEDS: CYANOCOBALAMIN 500 MCG TABLET PO SCH (20:41)
[2019-04-24] VITALS: BP 146/84
[2019-04-24 04:00] VITALS: BP 139/78
[2019-04-24 07:24] LABS: BASOPHILS % (AUTO) 0.6 % (0.0-2.0); HEMATOCRIT 27 % (33-45); HEMOGLOBIN 8.4 g/dL (11.5-14.8); LYMPHOCYTES # (AUTO) 1.6 /CMM (0.8-4.8); LYMPHOCYTES % (AUTO) 23.4 % (20.0-44.0); MEAN CORPUSCULAR HGB CONC 31 g/dl (31.0-36.0); MEAN CORPUSCULAR VOLUME 76 fL (82-100); MONOCYTES # (AUTO) 0.8 /CMM (0.1-1.30); MONOCYTES % (AUTO) 11.4 % (2.0-12.0); NEUTROPHILS # (AUTO) 4.2 /CMM (1.8-8.9); NEUTROPHILS % (AUTO) 60.6 % (43.0-81.0); PLATELET COUNT (AUTO) 185 /CMM (150-450); RED BLOOD CELL COUNT(AUTO) 3.57 MIL/uL (4.0-5.2); WHITE BLOOD COUNT (AUTO) 6.9 K/uL (4.3-11.0)
[2019-04-24 07:50] LABS: CALCIUM, SERUM 8.3 mg/dL (8.5-10.1); CREATININE 0.5 mg/dL (0.6-1.3); POTASSIUM 4.2 mmol/L (3.5-5.1)
[2019-04-24 08:00] VITALS: BP 160/72
[2019-04-24] MEDS: AMLODIPINE BESYLATE 10 MG TABLET PO SCH (08:19)
[2019-04-24] MEDS: FERROUS SULFATE (325 MG) 325 MG/TAB TABLET PO SCH (08:19)
[2019-04-24] MEDS: CYANOCOBALAMIN 500 MCG TABLET PO SCH (08:19)
[2019-04-24] MEDS: PANTOPRAZOLE 40 MG TABLET.DR PO SCH (08:19)
[2019-04-24] MEDS: CHOLECALCIFEROL 1,000 UNIT TABLET (VIT D3) PO SCH (08:19)
[2019-04-24 09:07] LABS: IMMUNOGLOBULIN A, SERUM 132 mg/dL (87-352); IMMUNOGLOBULIN G, SERUM 600 mg/dL (700-1600); IMMUNOGLOBULIN M, SERUM 45 mg/dL (26-217)
[2019-04-24] MEDS: SOD FERRIC GLUC 125 MG in IV NS 0.9% 100 ML IV SCH (15:12)
[2019-04-24 16:00] VITALS: BP 140/72
--- NOTE | 2019-04-24 19:14 | NUR ---
MS RN Closing No significant changes throughout shift. Patient advised to call for help ambulating to bathroom, given patient insists on being attached to IV pole despite no fluids running. Call light within reach, bed alarm on
[2019-04-24 20:00] VITALS: BP 141/78
--- NOTE | 2019-04-24 20:51 | NUR ---
MS-1/POWERHOUSE MECHANIC APPRENTICE PT IS EXTREMELY UNREASONABLE. PT IS REQUESTING TO ATTACHED TO IV TUBING THAT ISN'T INFUSING ANY PRESCRIBED MEDICATIONS. PT CAN NOT BE REASONED WITH AND IS UNWILLING TO LISTEN. PT THEN PULLED OUT HER IV WHILE SPEAKING TO ME AND BLATANTLY DENIED PULLING IT OUT. CHARGE NURSE AWARE.
--- NOTE | 2019-04-24 21:43 | NUR ---
MS-1/MANAGER FINANCIAL REPORTING NEW IV PLACED BY VELIA GARZA LEFT HAND #22.
--- NOTE | 2019-04-24 22:36 | NUR ---
RN NOTES Assume care of this patient. Awake watching TV, on RA, no SOB/respiratory distress noted, denies any discomfort at this time. Kept on bed clean, dry and comfortable. Call light within easy reach. Will continue to monitor accordingly.
--- NOTE | 2019-04-24 22:38 | NUR ---
REPORT TO TYRONE GARZA FOR CONT OF CARE.
[2019-04-25 04:00] VITALS: BP 130/75
[2019-04-25 06:07] LABS: BASOPHILS # (AUTO) 0.1 /CMM (0.0-0.2); BASOPHILS % (AUTO) 1.4 % (0.0-2.0); EOSINOPHILS % (AUTO) 5.2 % (0.0-6.0); HEMATOCRIT 27 % (33-45); HEMOGLOBIN 8.6 g/dL (11.5-14.8); LYMPHOCYTES # (AUTO) 1.3 /CMM (0.8-4.8); LYMPHOCYTES % (AUTO) 20.7 % (20.0-44.0); MEAN CORPUSCULAR HGB CONC 31 g/dl (31.0-36.0); MEAN CORPUSCULAR VOLUME 78 fL (82-100); MONOCYTES # (AUTO) 0.6 /CMM (0.1-1.30); MONOCYTES % (AUTO) 10.2 % (2.0-12.0); NEUTROPHILS % (AUTO) 62.5 % (43.0-81.0); PLATELET COUNT (AUTO) 206 /CMM (150-450); RED BLOOD CELL COUNT(AUTO) 3.53 MIL/uL (4.0-5.2); WHITE BLOOD COUNT (AUTO) 6.3 K/uL (4.3-11.0)
[2019-04-25 06:26] LABS: CALCIUM, SERUM 8.1 mg/dL (8.5-10.1); CREATININE 0.5 mg/dL (0.6-1.3); POTASSIUM 3.4 mmol/L (3.5-5.1)
--- NOTE | 2019-04-25 06:28 | NUR ---
RN NOTES Patient asleep, easily awaken. On RA, no complaints made within the shift. All nursing needs attended. Kept on bed clean, dry and comfortable. On fall and aspiration precautions. Endorsed to the next shift.
--- NOTE | 2019-04-25 07:19 | NUR ---
MS RN OPENING NOTE RECEIVED REPORT FROM NOC SHIFT NURSE. PT ASLEEP IN BED, ON ROOM AIR, SATURATING WELL, RESPIRATIONS EVEN AND UNLABORED, NO SIGNS OF RESPIRATORY DISTRESS NOTED. IV SITE ON LEFT HAND G22 INTACT, PATENT, WITH HEP LOCK IN PLACE. BED IN LOW POSITION, LOCKED, CALL LIGHT WITHIN REACH.
[2019-04-25] MEDS: PANTOPRAZOLE 40 MG TABLET.DR PO SCH (07:45)
[2019-04-25 08:00] VITALS: BP 136/82
[2019-04-25] MEDS: CHOLECALCIFEROL 1,000 UNIT TABLET (VIT D3) PO SCH (08:28)
[2019-04-25] MEDS: FERROUS SULFATE (325 MG) 325 MG/TAB TABLET PO SCH (08:28)
[2019-04-25] MEDS: AMLODIPINE BESYLATE 10 MG TABLET PO SCH (08:28)
[2019-04-25] MEDS: CYANOCOBALAMIN 500 MCG TABLET PO SCH (08:28)
[2019-04-25] MEDS ORDERED: POTASSIUM CHLORIDE 20 MEQ TAB.PRT.SR PO SCH (09:00)
[2019-04-25 12:06] LABS: *SPE A/G RATIO 1.4 (0.7-1.7); *SPE ALPHA-1-GLOBULIN 0.3 g/dL (0.0-0.4); *SPE ALPHA-2-GLOBULIN 0.5 g/dL (0.4-1.0); *SPE BETA GLOBULIN 0.8 g/dL (0.7-1.3); *SPE GLOBULIN, TOTAL 2.2 g/dL (2.2-3.9); *SPE M-SPIKE Not Observed g/dL (Not Observed); *SPEGAMMA GLOBULIN 0.6 g/dL (0.4-1.8)
[2019-04-25] MEDS: SOD FERRIC GLUC 125 MG in IV NS 0.9% 100 ML IV SCH (13:35)
[2019-04-25] MEDS ORDERED: SOD FERRIC GLUC 125 MG in IV NS 0.9% 100 ML IV SCH (14:00)
[2019-04-25 16:00] VITALS: BP 126/82
--- NOTE | 2019-04-25 18:39 | NUR ---
MS RN CLOSING NOTE PT ASLEEP IN BED, ON ROOM AIR, SATURATING WELL, RESPIRATIONS EVEN AND UNLABORED, NO SIGNS OF RESPIRATORY DISTRESS NOTED. IV SITE ON LEFT HAND G22 INTACT, PATENT, WITH HEP LOCK IN PLACE. BED IN LOW POSITION, LOCKED, CALL LIGHT WITHIN REACH. PROVIDED SAFETY AND COMFORT TO PT THROUGHOUT SHIFT, ALL DUE MEDS GIVEN. UNABLE TO COLLECT STOOL SPECIMEN- PT DID NOT HAVE BM. WILL ENDORSE TO NOC SHIFT NURSE.
--- NOTE | 2019-04-25 19:40 | NUR ---
RN OPENING NOTES PATIENT RECEIVED FROM GREG GASPAR. PATIENT IS CURRENTLY AWAKE IN BED. A/O X 3. PATIENT ABLE TO VERBALIZE NEEDS. NO SIGNS OF RESPIRATORY DISTRESS, NO SHORTNESS OF BREATH NOTED, RESPIRATIONS EVEN AND UNLABORED. NO COMPLAINTS OF PAIN OR DISCOMFORT AT THIS TIME. IV SITE INTACT L HAND INTACT AND PATENT, NO INFECTION/INFILTRATION, FLUSHED, SL. SAFETY PRECAUTIONS IMPLEMENTED; CALL LIGHT WITHIN REACH, BED LOW, BED LOCKED, BILATERAL UPPER SIDE RAILS UP. WILL CONTINUE TO MONITOR.
[2019-04-25 20:00] VITALS: BP 141/91
[2019-04-26 04:00] VITALS: BP 164/78
--- NOTE | 2019-04-26 06:10 | NUR ---
RN CLOSING NOTES PATIENT ASLEEP, EASILY AWAKENED. PATIENT ON ROOM AIR, NO SIGNS OF RESPIRATORY DISTRESS, NO SHORTNESS OF BREATH NOTED, RESPIRATIONS EVEN AND UNLABORED. NO SIGNS OF FACIAL GRIMACING INDICATING PAIN OR DISCOMFORT AT THIS TIME. IV SITE L HAND G22, INTACT AND PATENT, NO INFECTION/INFILTRATION, FLUSHED, SL. PATIENT KEPT CLEAN DRY AND COMFORTABLE. ALL NEEDS MET ON SHIFT. SAFETY PRECAUTIONS IMPLEMENTED; CALL LIGHT WITHIN REACH, BED LOW, BED LOCKED, BILATERAL UPPER SIDE RAILS UP. WILL ENDORSE TO DAY SHIFT NURSE FOR CONTINUITY OF CARE.
[2019-04-26 07:19] LABS: BASOPHILS % (AUTO) 0.8 % (0.0-2.0); HEMATOCRIT 30 % (33-45); HEMOGLOBIN 9.3 g/dL (11.5-14.8); LYMPHOCYTES # (AUTO) 1.1 /CMM (0.8-4.8); LYMPHOCYTES % (AUTO) 18.8 % (20.0-44.0); MEAN CORPUSCULAR HGB CONC 31 g/dl (31.0-36.0); MEAN CORPUSCULAR VOLUME 79 fL (82-100); MONOCYTES # (AUTO) 0.8 /CMM (0.1-1.30); NEUTROPHILS # (AUTO) 3.7 /CMM (1.8-8.9); NEUTROPHILS % (AUTO) 61.4 % (43.0-81.0); PLATELET COUNT (AUTO) 183 /CMM (150-450); RED BLOOD CELL COUNT(AUTO) 3.79 MIL/uL (4.0-5.2)
[2019-04-26 07:39] LABS: CALCIUM, SERUM 8.4 mg/dL (8.5-10.1); CREATININE 0.4 mg/dL (0.6-1.3); POTASSIUM 3.6 mmol/L (3.5-5.1)
[2019-04-26 08:00] VITALS: BP 140/68
--- NOTE | 2019-04-26 08:00 | NUR ---
RECEIVING CHECKER NOTERN CLOSING NOTES PATIENT AWAKE , ALERT PATIENT ON ROOM AIR, NO SIGNS OF RESPIRATORY DISTRESS, NO SHORTNESS OF BREATH NOTED, RESPIRATIONS EVEN AND UNLABORED. NO SIGNS OF FACIAL GRIMACING INDICATING PAIN OR DISCOMFORT AT THIS TIME. IV SITE L HAND G22, INTACT AND PATENT, NO INFECTION/INFILTRATION, FLUSHED, SL. PATIENT KEPT CLEAN DRY AND COMFORTABLE. ALL NEEDS MET ON SHIFT. SAFETY PRECAUTIONS IMPLEMENTED; CALL LIGHT WITHIN REACH, BED LOW, BED LOCKED, BILATERAL UPPER SIDE RAILS UP. WILL CONT TO MONITOR .
[2019-04-26] MEDS: CHOLECALCIFEROL 1,000 UNIT TABLET (VIT D3) PO SCH (09:07)
[2019-04-26] MEDS: CYANOCOBALAMIN 500 MCG TABLET PO SCH (09:07)
[2019-04-26] MEDS: PANTOPRAZOLE 40 MG TABLET.DR PO SCH (09:07)
[2019-04-26] MEDS: AMLODIPINE BESYLATE 10 MG TABLET PO SCH (09:08)
[2019-04-26] MEDS: FERROUS SULFATE (325 MG) 325 MG/TAB TABLET PO SCH (09:08)
[2019-04-26 10:00] VITALS: BP 140/68
--- NOTE | 2019-04-26 12:00 | NUR ---
MS RN NOTE HAVING DINER ,ABLE TO EAT SELF NOT IN DISTRESS
[2019-04-26] MEDS: SOD FERRIC GLUC 125 MG in IV NS 0.9% 100 ML IV SCH (14:30)
--- NOTE | 2019-04-26 16:00 | NUR ---
MS RN NOTE PER LIANNE GARZA AUTO BODY MECHANIC APPRENTICE OK TO D\C GO HOME ,TAXI VOUCHER WILL BE GIVEN
--- NOTE | 2019-04-26 17:01 | NUR ---
MS RN NOTE D\C INSTRUCTION GIVEN ,UNDERSTOOD , EXPLAINED HOW TO TAKE HOME MEDS AND POSSIBLE SIDE EFFECTS , INSTRUCTED TO F\U WITH PRIMARY CARE DOCTOR NEXT WEEK AND BELONGING SIGNED TAXI VOUCHER GIVEN , WILL F\U
--- NOTE | 2019-04-26 19:08 | NUR ---
MS RN NOTE HL REMOVED, NO BLEEDING NOTED , TAKEN TO LOBBY ON W\C , TAXI ARRIVED, VOUCHER GIVEN , WENT HOME WITH STABLE CODITION
== END 2019-04-26 20:00 | disposition home or self-care (01) | DRG 663 ==
LOC: ER 18:51 → TELE1 23:11 → MEDSG1 04-24 09:30
PROVIDERS: ADMIT Internal Medicine; ATTEND Hospitalist
PROC: 30233N1 Transfusion of Nonautologous Red Blood Cells into Peripheral Vein, Percutaneous Approach (ICD-10-PCS; principal; 2019-04-21)
DX: D50.9 Iron deficiency anemia, unspecified (principal); F25.9 Schizoaffective disorder, unspecified; I27.20 Pulmonary hypertension, unspecified; K76.0 Fatty (change of) liver, not elsewhere classified; E87.6 Hypokalemia; I10 Essential (primary) hypertension; I25.10 Atherosclerotic heart disease of native coronary artery without angina pectoris; M81.0 Age-related osteoporosis without current pathological fracture; F31.9 Bipolar disorder, unspecified; E66.9 Obesity, unspecified; Z68.36 Body mass index [BMI] 36.0-36.9, adult; R91.8 Other nonspecific abnormal finding of lung field; K21.9 Gastro-esophageal reflux disease without esophagitis; R16.0 Hepatomegaly, not elsewhere classified; K29.70 Gastritis, unspecified, without bleeding
CPT/HCPCS: 36415; 71250-TC; 76700-TC; 80048-TC; 80053-TC; 80076-TC; 82728-TC; 82784; 83010; 83540-TC; 83615-TC; 83690-TC; 83735-TC; 84100-TC; 84155; 84165; 84443-TC; 84484-TC; 85025-TC; 85045-TC; 85730-TC; 86334; 86850-TC; 86921-TC; 87081-TC; A4216; G0378; J2405; J2916; J2930; J3480; J7030; J7050; P9016-BL

== ENCOUNTER 2019-08-21 15:46 | Emergency (ER) | payer OTHER ==
[~2019-08-21] VITALS: Ht 167.6 cm; Wt 95.3 kg
--- NOTE | 2019-08-21 15:58 | NUR ---
c/o chest pressure like pain since yesterday morning 09/27 ps, non radiating. PT AAOX4, VSS, RR EVEN & UNLABORED. DENIES SOB, DIZZINESS, N/V, WEAKNESS @ THIS TIME. PT SEEN & EVAL'D BY DR. MIX. PLACED ON SPED TEACHER, NSR. WILL CONT TO MONITOR.
[2019-08-21 16:08] LABS: BASOPHILS % (AUTO) 0.7 % (0.0-2.0); EOSINOPHILS % (AUTO) 3.7 % (0.0-6.0); HEMATOCRIT 42 % (33-45); HEMOGLOBIN 13.5 g/dL (11.5-14.8); LYMPHOCYTES # (AUTO) 0.9 /CMM (0.8-4.8); LYMPHOCYTES % (AUTO) 16.4 % (20.0-44.0); MEAN CORPUSCULAR HGB CONC 32 g/dl (31.0-36.0); MEAN CORPUSCULAR VOLUME 90 fL (82-100); MONOCYTES # (AUTO) 0.5 /CMM (0.1-1.30); MONOCYTES % (AUTO) 9.3 % (2.0-12.0); NEUTROPHILS # (AUTO) 3.8 /CMM (1.8-8.9); NEUTROPHILS % (AUTO) 69.9 % (43.0-81.0); PLATELET COUNT (AUTO) 240 /CMM (150-450); RED BLOOD CELL COUNT(AUTO) 4.64 MIL/uL (4.0-5.2); WHITE BLOOD COUNT (AUTO) 5.4 K/uL (4.3-11.0)
[2019-08-21 16:16] LABS: CALCIUM, SERUM 8.8 mg/dL (8.5-10.1); CARBON DIOXIDE 30 mmol/L (21-32); CHLORIDE 105 mmol/L (98-107); CREATININE 0.9 mg/dL (0.6-1.3); GLUCOSE 113 mg/dL (74-106); POTASSIUM 3.2 mmol/L (3.5-5.1); SODIUM SERUM 143 mmol/L (136-145); UREA NITROGEN, BLOOD 11 mg/dL (7-18)
--- NOTE | 2019-08-21 16:44 | NUR ---
Patient discharged to home in stable condition. Written and verbal after care instructions given. Patient verbalizes understanding of instruction.
[2019-08-21 16:45] VITALS: BP 137/81
== END 2019-08-21 16:45 | disposition home or self-care (01) ==
LOC: ER 15:47
DX: R07.89 Other chest pain (principal); R42 Dizziness and giddiness; I10 Essential (primary) hypertension; I25.10 Atherosclerotic heart disease of native coronary artery without angina pectoris; Z98.890 Other specified postprocedural states; Z60.2 Problems related to living alone; Z79.899 Other long term (current) drug therapy
CPT/HCPCS: 36415; 71045-TC; 80048-TC; 84484-TC; 85025-TC

== ENCOUNTER 2019-09-11 13:02 | Inpatient (IN) | payer OTHER ==
[~2019-09-11] VITALS: Ht 167.6 cm; Wt 96.2 kg
--- NOTE | 2019-09-11 13:36 | NUR ---
BIBS TO ER BED 12. AAOX4. NOT IN RESP DISTRESS, BRETHING EVEN AND UNLABORED. AMBULATORY. CAME IN FOR MID STERNAL CHEST PAIN AND EPIGASTRIC PAIN X 1 WEEKS. PT RATES PAIN 5/10 NON RADIATING. DULL AND ACHING IN NATURE. PT DOES REPORT NAUSEA. MD WAS AT BEDSIDE FOR EVAL. ORDERS RECIEVED, NOTED ANC CARRIED OUT. IV LINE OBTAINED ON L AC 20G. BLOOD DRAWN AND GIVEN TO SLOPE TENDER AT BEDSIDE. PT ON MONITOR.
[2019-09-11 13:46] LABS: BASOPHILS # (AUTO) 0.1 /CMM (0.0-0.2); BASOPHILS % (AUTO) 1.1 % (0.0-2.0); EOSINOPHILS % (AUTO) 3.3 % (0.0-6.0); HEMATOCRIT 44 % (33-45); HEMOGLOBIN 14.5 g/dL (11.5-14.8); LYMPHOCYTES # (AUTO) 1.2 /CMM (0.8-4.8); LYMPHOCYTES % (AUTO) 21.4 % (20.0-44.0); MEAN CORPUSCULAR HGB CONC 33 g/dl (31.0-36.0); MEAN CORPUSCULAR VOLUME 90 fL (82-100); MONOCYTES # (AUTO) 0.4 /CMM (0.1-1.30); MONOCYTES % (AUTO) 8.1 % (2.0-12.0); NEUTROPHILS # (AUTO) 3.6 /CMM (1.8-8.9); NEUTROPHILS % (AUTO) 66.1 % (43.0-81.0); PLATELET COUNT (AUTO) 245 /CMM (150-450); RED BLOOD CELL COUNT(AUTO) 4.84 MIL/uL (4.0-5.2); WHITE BLOOD COUNT (AUTO) 5.4 K/uL (4.3-11.0)
[2019-09-11 13:56] LABS: CALCIUM, SERUM 9.1 mg/dL (8.5-10.1); CARBON DIOXIDE 25 mmol/L (21-32); CHLORIDE 105 mmol/L (98-107); GLUCOSE 135 mg/dL (74-106); POTASSIUM 3.2 mmol/L (3.5-5.1); SODIUM SERUM 143 mmol/L (136-145); UREA NITROGEN, BLOOD 7 mg/dL (7-18)
[2019-09-11 14:13] LABS: ALANINE AMINOTRANSFERASE 16 U/L (12-78); ALKALINE PHOSPHATASE 102 U/L (46-116); ASPARTATE AMINOTRANSFERASE 11 U/L (15-37); B-TYPE NATRIURETIC PEPTIDE 290 PG/ML (0-125); BILIRUBIN,DIRECT 0.1 mg/dL (0.0-0.2); BILIRUBIN,TOTAL 0.6 mg/dL (0.2-1.0); TOTAL PROTEIN, SERUM 7.3 g/dL (6.4-8.2)
--- NOTE | 2019-09-11 14:48 | NUR ---
TECH AT BEDSIDE FOR SECOND EKG.
--- NOTE | 2019-09-11 15:10 | NUR ---
CALLED [facility], ERNESTINED VLAENTIN
[2019-09-11] MEDS ORDERED: ASPI-1169 PO (15:29)
[2019-09-11] MEDS ORDERED: CHLO25TA2 PO (15:29)
[2019-09-11] MEDS ORDERED: ASPIRIN 81 MG TAB.CHEW PO ONE (15:30)
--- NOTE | 2019-09-11 15:41 | NUR ---
CALLED [facility] FOR TELE BED.
[2019-09-11] MEDS ORDERED: ASPIRIN 325 MG TABLET ONE (15:48)
--- NOTE | 2019-09-11 15:56 | NUR ---
ROOM GIVEN [id number] TELE
--- NOTE | 2019-09-11 16:09 | NUR ---
report given to hernan ansari for sukhdev
[2019-09-11] MEDS ORDERED: ONDANSETRON HCL/PF 4 MG/2 ML VIAL IVP PRN (16:30)
[2019-09-11] MEDS ORDERED: MAGNESIUM HYDROXIDE 30 ML UDC PO PRN (16:30)
[2019-09-11] MEDS ORDERED: MAG HYDROX/AL HYDROX/SIMETH 30 ML UDC PO PRN (16:30)
[2019-09-11] MEDS ORDERED: ACETAMINOPHEN 325 MG TABLET PO PRN (16:30)
[2019-09-11] MEDS ORDERED: Z GUARD REMEDY 2 OZ OINT TP PRN (16:30)
[2019-09-11] MEDS ORDERED: POTASSIUM CHLORIDE 20 MEQ TAB.PRT.SR PO ONE (17:00)
--- NOTE | 2019-09-11 17:50 | NUR ---
CHILD MONITORSCRAP SEPARATOR NOTES RECEIVED PT FROM ER VIA [facility], ARRIVED AT 1640. PT A/O X4, AMBULATORY WITH STEADY GAIT. TOLERATING RA, WITH NO ACUTE RESPIRATORY DISTRESS NOTED. PT DENIES ANY PAIN OR DISCOMFORT AT THE TIME OF ARRIVAL AND UP TO THIS MOMENT. PT DENIES ANY CONCERNS OR QUESTIONS. PT ABLE TO PROVIDE MED HX. DENIES BEING SMOKER, ALCOHOL HX AND ANY RECREATIONAL DRUGS. PT PREFERS NOT TO HAVE ANY VACCINES WELL. PIVS TO R HAND G20 AND LAC G20, BOTH FLUSHED WITH NS, INTACT AND OPERATIONAL. PT REFUSED SKIN ASSESSMENT AT THIS TIME, PER PT SHE WANTS TO BE COMFORTABLE AT THE MOMENT FOR NOW, WILL ENDORSE TO INCOMING NIGHT NURSE WELL. PT ORIENTED TO ROOM, STAFFS, MEAL TIMES, ETC. ALL NEEDS AND CARE ATTENDED. PT KEPT COMFORTABLE IN BED. PT'S BED IN LOWEST, LOCKED POSITION WITH SRX2. CALL LIGHT KEPT WITHIN REACH. WILL ENDORSE TO INCOMING NIGHT NURSE FOR LEXY.
--- NOTE | 2019-09-11 19:00 | NUR ---
rubber gasket inspector trimmer opening notes Received Pt from morning nurse. Pt is sitting in bed comfortably watching TV. Pt is alert and orientedX4. Respiration is normal in room air. No SOB. No S/S of distress noted. Tele monitor showed SR HR at 76 bpm. IV sites at R hand # 20 is clean, intact and flush without resistance. IV sites at LAC# 20 is clean, intact, patent and SL. Pt refused to have skin assessment and checked. Pt stated " I have no cuts." Will try again later. Pt has a steady gait. Safety precautions is maintained. Bed at low position, brakes locked, side rails upX2 and call light is within reach. Will continue to monitor.
[2019-09-11 20:00] VITALS: BP 160/77
[2019-09-11] MEDS: ENOXAPARIN SODIUM 40 MG/0.4 ML DISP.SYRIN SQ SCH (20:30)
[2019-09-12] VITALS: BP 152/90
[2019-09-12 04:00] VITALS: BP 150/100
--- NOTE | 2019-09-12 06:40 | NUR ---
drafter refrigeration closing notes Pt is sleeping in bed comfortably. Pt is alert and orientedX4. Respiration is normal in room air. No SOB. No S/S of distress noted. Tele monitor showed SR HR at 66 bpm. VS is stable. Afebrile. Routine meds was given as ordered. IV sites at R hand # 20 is clean, intact and SL. IV sites at LAC# 20 is clean, intact, patent and SL. Pt refused skin assessment. Made aware risk and benefits. Kept Pt clean, dry and comfortable. Safety precautions is maintained. Bed at low position, brakes locked, side rails upX2 and call light is within reach. Will endorse to morning nurse for LEXY.
[2019-09-12 08:00] VITALS: BP 161/98
--- NOTE | 2019-09-12 08:00 | NUR ---
RN NOTES RECEIVED PATIENT IN THE BED A/O X3, ROOM AIR, WAS COMPLAINING OF CHEST PAIN 6/10 PER PAIN SCALE. V/S TAKEN AND FOLLOWED , ADMINISTERED SCHEDULED MEDICATION. SEEN PATIENT BY SOCIAL SCIENCE PROFESSOR Dr NEELY, , AND HOSPITALIST PROPERTY MANAGER DANITA. PATIENT PLAN FOR CTA. PATIENT TOLERATED BREAKFAST WELL, AMBULATORY SELF CARE, USING BATHROOM,. IV ACCESS ON RIGHT HAND INTACT. CALL LIGHT WITHIN TO REACH. CONTINUED MONITORING.
[2019-09-12] MEDS: PANTOPRAZOLE 40 MG TABLET.DR PO SCH (08:08)
[2019-09-12] MEDS: CHOLECALCIFEROL 1,000 UNIT TABLET (VIT D3) PO SCH (08:31)
[2019-09-12] MEDS: AMLODIPINE BESYLATE 10 MG TABLET PO SCH (08:31)
[2019-09-12] MEDS: ASPIRIN 81 MG TAB.CHEW PO SCH (08:32)
[2019-09-12] MEDS: HYDROCHLOROTHIAZIDE 25 MG TABLET PO SCH (08:32)
[2019-09-12] MEDS: HYDROCODONE/APAP 5/325MG 1 EACH TABLET PO PRN ×2 (08:33→17:11)
--- NOTE | 2019-09-12 08:33 | NUR ---
rn notes administered narco 5/325 mg po prn for chest pain 09/27 per patient request, v/s taken bp-161/98,p-76, r-18.
[2019-09-12] MEDS ORDERED: Medication Not On Formulary EA (Chlorthalidone 25 MG) PO SCH (09:00)
[2019-09-12] MEDS ORDERED: FERROUS SULFATE (325 MG) 325 MG/TAB TABLET PO SCH (09:00)
--- NOTE | 2019-09-12 09:17 | NUR ---
rn notes patient sign consent form for CTA.
[2019-09-12 09:32] LABS: BASOPHILS % (AUTO) 0.6 % (0.0-2.0); EOSINOPHILS % (AUTO) 3.8 % (0.0-6.0); HEMATOCRIT 41 % (33-45); HEMOGLOBIN 13.3 g/dL (11.5-14.8); LYMPHOCYTES # (AUTO) 1.5 /CMM (0.8-4.8); LYMPHOCYTES % (AUTO) 24.6 % (20.0-44.0); MEAN CORPUSCULAR HGB CONC 33 g/dl (31.0-36.0); MEAN CORPUSCULAR VOLUME 90 fL (82-100); MONOCYTES # (AUTO) 0.6 /CMM (0.1-1.30); MONOCYTES % (AUTO) 10.5 % (2.0-12.0); NEUTROPHILS # (AUTO) 3.6 /CMM (1.8-8.9); NEUTROPHILS % (AUTO) 60.5 % (43.0-81.0); PLATELET COUNT (AUTO) 209 /CMM (150-450); RED BLOOD CELL COUNT(AUTO) 4.56 MIL/uL (4.0-5.2)
[2019-09-12 09:43] LABS: CALCIUM, SERUM 8.1 mg/dL (8.5-10.1); CREATININE 0.6 mg/dL (0.6-1.3); MAGNESIUM 1.8 mg/dL (1.8-2.4); PHOSPHORUS 3.9 mg/dL (2.5-4.9); POTASSIUM 4.2 mmol/L (3.5-5.1)
[2019-09-12 09:52] LABS: THYROID STIMULATING HORMONE 1.644 uIU/mL (0.358-3.74)
--- NOTE | 2019-09-12 10:00 | NUR ---
RN NOTES MEDICATION WERE ADMINISTERED FOR PAIN EFFECTIVE.
[2019-09-12] MEDS: METOPROLOL TARTRATE 50 MG TABLET PO SCH ×2 (11:29→17:12)
--- NOTE | 2019-09-12 15:10 | NUR ---
RN NOTES PATIENT LEAD INSTRUCTOR/FLIGHT ATTENDANT FOR CTA AT THIS TIME.
[2019-09-12] MEDS ORDERED: IOHEXOL-350 100 ML VIAL IV ONE (15:16)
[2019-09-12 16:00] VITALS: BP 158/95
--- NOTE | 2019-09-12 16:40 | NUR ---
RN NOTES PATIENT BACK FROM CTA, WAS COMPLAINING OF HEADACHE, V/S TAKEN BP 158/95, P-62, WILL ADMINISTER SCHEDULED MEDICATION. CONTINUED MONITORING.
[2019-09-12 16:56] VITALS: BP 158/95
--- NOTE | 2019-09-12 17:11 | NUR ---
RN NOTES ADMINISTERED NARCO FOR HEADACHE 09/27 PATIENT REQUEST, V/S TAKEN BP 158/98, P-62, R-19. ALSO ADMINISTERED SCHEDULED MEDICATION.
--- NOTE | 2019-09-12 18:31 | NUR ---
RN NOTES MEDICATION WERE ADMINISTERED FOR PAIN EFFECTIVE, PATIENT STABLE, TOLERATED DINNER WELL. PATIENT SELF CARE. CALL LIGHT WITHIN TO REACH. ENDORSED ONCOMING NURSE FOLLOW PLAN OF CARE.
[2019-09-12 20:12] VITALS: BP 132/75
[2019-09-12] MEDS: ENOXAPARIN SODIUM 40 MG/0.4 ML DISP.SYRIN SQ SCH (20:25)
--- NOTE | 2019-09-12 20:39 | NUR ---
MS RN OPENING NOTES PATIENT RECEIVED RESTING IN BED A/O X 4. STABLE ON RA WITH BREATHING EVEN AND UNLABORED, NO SOB NOTE. NO SIGNS OF ACUTE DISTRESS. NO COMPLAINTS OF PAIN OR DISCOMFORT. IV LOCATE DON R HAND #20 SL. SAFETY PRECAUTIONS IN PLACE WITH BED IN LOWEST POSITION, CALL LIGHT WITHIN REACH, BREAKS ON, SIDE RAILS UP. WILL CONTINUE TO MONITOR.
[2019-09-13] MEDS: METOPROLOL TARTRATE 50 MG TABLET PO SCH ×3 (00:04→11:27)
--- NOTE | 2019-09-13 06:43 | NUR ---
MS RN CLOSING NOTES PATIENT RESTING IN BED A/O X 4. STABLE ON RA WITH BREATHING EVEN AND UNLABORED, NO SOB NOTE. NO SIGNS OF ACUTE DISTRESS. NO COMPLAINTS OF PAIN OR DISCOMFORT. MIDLINE ON R UA. SAFETY PRECAUTIONS IN PLACE WITH BED IN LOWEST POSITION, CALL LIGHT WITHIN REACH, BREAKS ON, SIDE RAILS UP. ALL NEEDS ATTENDED TO. WILL ENDORSE TO ONCOMING SHIFT ABOUT LEXY.
[2019-09-13] MEDS: HYDROCODONE/APAP 5/325MG 1 EACH TABLET PO PRN ×2 (07:52→14:36)
[2019-09-13] MEDS: PANTOPRAZOLE 40 MG TABLET.DR PO SCH (07:52)
[2019-09-13 08:00] VITALS: BP 135/69
--- NOTE | 2019-09-13 08:00 | NUR ---
MS RN OPENING NOTES MS RN OPENING NOTES PATIENT RECEIVED RESTING IN BED A/O X 4. NO CARDIAC OR RESPIRATORY DISTRESS NOTED. NO SOB NOTED. STABLE ON RA WITH BREATHING EVEN AND UNLABORED, IV ACCESS NOTED ON R HAND #20 SL. NO COMPLAINTS OF CHEST PAIN NOTED. SAFETY PRECAUTIONS IN PLACE WITH BED IN LOWEST POSITION, CALL LIGHT WITHIN REACH, BREAKS ON, SIDE RAILS UP. WILL CONTINUE TO MONITOR.
[2019-09-13 08:01] VITALS: BP 124/74
[2019-09-13] MEDS: CHOLECALCIFEROL 1,000 UNIT TABLET (VIT D3) PO SCH (08:13)
[2019-09-13] MEDS: HYDROCHLOROTHIAZIDE 25 MG TABLET PO SCH ×2 (08:13→08:16)
[2019-09-13] MEDS: ASPIRIN 81 MG TAB.CHEW PO SCH (08:13)
[2019-09-13] MEDS: AMLODIPINE BESYLATE 10 MG TABLET PO SCH (08:14)
[2019-09-13 11:27] VITALS: BP 124/72
--- NOTE | 2019-09-13 16:20 | NUR ---
D/C HOME PT WAS DISCHARGED HOME. PT IN STABLE CONDITION. NO CARDIAC OR RESPIRATORY DISTRESS NOTED. NO SOB NOTED. NO COMPLAINTS OF CHEST PAIN. VS STABLE. IV ACCESS ON R UPPER ARM MIDLINE WAS REMOVED. APPLIED PRESSURE DRESSING. NO BLEEDING NOTED. HOWEVER, PT REFUSED SKIN/BODY CHECK UPON D/C. PT STATED, "I DONT HAVE ANYTHING ON MY SKIN." PT WAS PROVIDED WITH A BUS PASS. ALL D/C INSTRUCTIONS PROVIDED TO THE PT. ADVISED PT TO MAKE AN APPT WITH PCP SOON POSSIBLE. EXPLAINED MEDS TO BE CONTINUED PER MD ORDERS, IN LAYMEN'S TERM. PT WAS ALSO PROVIDED WITH A PACKED LUNCH WELL EXTRA TOILETRIES PER HER REQUEST. PT WAS ASSISTED BY PRIMARY RN TO THE LOBBY. PT IS AMBULATORY. PT LEFT THE UNIT AT 1620.
== END 2019-09-13 16:20 | disposition home or self-care (01) | DRG 756 ==
LOC: ER 13:05 → TELE 15:59 → MED 09-12 10:59
PROVIDERS: ADMIT Nurse Practitioner Acute Care; ATTEND Nurse Practitioner Acute Care
DX: F41.9 Anxiety disorder, unspecified (principal); F25.9 Schizoaffective disorder, unspecified; E87.6 Hypokalemia; I25.10 Atherosclerotic heart disease of native coronary artery without angina pectoris; M81.0 Age-related osteoporosis without current pathological fracture; I10 Essential (primary) hypertension; E78.5 Hyperlipidemia, unspecified; D50.9 Iron deficiency anemia, unspecified; F31.9 Bipolar disorder, unspecified; E66.9 Obesity, unspecified; Z68.34 Body mass index [BMI] 34.0-34.9, adult; K29.70 Gastritis, unspecified, without bleeding
CPT/HCPCS: 36415; 71045-TC; 75574; 80048-TC; 80061-TC; 80076-TC; 83735-TC; 83880; 84100-TC; 84443-TC; 84484-TC; 85025-TC; 93307-TC; G0378; G0480; J1650; Q9967

== ENCOUNTER 2020-06-10 23:48 | Emergency (ER) | payer OTHER ==
[~2020-06-10] VITALS: Ht 167.6 cm; Wt 90.7 kg
[~2020-06-10 23:48] MED LIST changes: +AMLO-213 PO; -AMLO10TA7 PO; +ASPI-1169 PO; +CHLO25TA2 PO; -PANT40TA4 PO; +PANT40TA49 PO
--- NOTE | 2020-06-11 | NUR ---
bibs for c/o generalized weakness. pt ambulatory with steady gaitls to bed 7, was placed on a monitor. VSS. will cont to monitor,
--- NOTE | 2020-06-11 00:05 | NUR ---
DR LUX AT BED SIDE
[2020-06-11] MEDS ORDERED: IV NS 0.9% 1,000 ML BAG IV ONE (00:30)
[2020-06-11 00:45] LABS: BASOPHILS % (AUTO) 0.5 % (0.0-2.0); EOSINOPHILS % (AUTO) 1.3 % (0.0-6.0); HEMATOCRIT 39 % (33-45); HEMOGLOBIN 12.9 g/dL (11.5-14.8); LYMPHOCYTES # (AUTO) 2.2 /CMM (0.8-4.8); LYMPHOCYTES % (AUTO) 27.5 % (20.0-44.0); MEAN CORPUSCULAR HGB CONC 33 g/dl (31.0-36.0); MEAN CORPUSCULAR VOLUME 92 fL (82-100); MONOCYTES # (AUTO) 0.8 /CMM (0.1-1.30); NEUTROPHILS % (AUTO) 60.7 % (43.0-81.0); PLATELET COUNT (AUTO) 242 /CMM (150-450); RED BLOOD CELL COUNT(AUTO) 4.24 MIL/uL (4.0-5.2); WHITE BLOOD COUNT (AUTO) 8.2 K/uL (4.3-11.0)
[2020-06-11 01:16] LABS: ALANINE AMINOTRANSFERASE 15 U/L (12-78); ALBUMIN 3.7 g/dL (3.4-5.0); ALKALINE PHOSPHATASE 117 U/L (46-116); ASPARTATE AMINOTRANSFERASE 11 U/L (15-37); BILIRUBIN,DIRECT 0.1 mg/dL (0.0-0.2); BILIRUBIN,TOTAL 0.2 mg/dL (0.2-1.0); CALCIUM, SERUM 8.6 mg/dL (8.5-10.1); CARBON DIOXIDE 29 mmol/L (21-32); CHLORIDE 103 mmol/L (98-107); CREATININE 0.8 mg/dL (0.6-1.3); GLUCOSE 108 mg/dL (74-106); LIPASE 146 U/L (73-393); POTASSIUM 3.1 mmol/L (3.5-5.1); SODIUM SERUM 142 mmol/L (136-145); TOTAL PROTEIN, SERUM 7.1 g/dL (6.4-8.2); UREA NITROGEN, BLOOD 18 mg/dL (7-18)
--- NOTE | 2020-06-11 02:10 | NUR ---
PT IS MEDDICALLY STABLE FOR D/C PER MD. IV removed. Catheter intact and site benign. Pressure and 4x4 applied to site. No bleeding noted.Patient discharged to home in stable condition. Written and verbal after care instructions given. Patient verbalizes understanding of instruction. Patient is ambulatory with steady gait. Patient given list of available shelters in surrounding area. pt had proper clothes on upon d/c and was provided w/ some food ansd snacks.
[2020-06-11 02:14] VITALS: BP 144/103
== END 2020-06-11 02:14 | disposition home or self-care (01) ==
LOC: ER 23:50
DX: R53.83 Other fatigue (principal); R53.1 Weakness; Z20.822 Contact with and (suspected) exposure to COVID-19; E66.9 Obesity, unspecified; Z68.32 Body mass index [BMI] 32.0-32.9, adult; F25.9 Schizoaffective disorder, unspecified; I25.10 Atherosclerotic heart disease of native coronary artery without angina pectoris; I10 Essential (primary) hypertension; M81.0 Age-related osteoporosis without current pathological fracture; F17.200 Nicotine dependence, unspecified, uncomplicated; Z79.82 Long term (current) use of aspirin; Z79.899 Other long term (current) drug therapy
CPT/HCPCS: 36415; 80048; 80076; 83605; 83690; 84484; 85025; 85730; 87426; 96360; 99284; C9803; J7030

== ENCOUNTER 2020-06-11 22:08 | Emergency (ER) | payer OTHER ==
[~2020-06-11] VITALS: Ht 160 cm; Wt 90.7 kg
[2020-06-11 23:12] VITALS: BP 170/93
[2020-06-11 23:35] LABS: BASOPHILS # (AUTO) 0.1 /CMM (0.0-0.2); BASOPHILS % (AUTO) 0.8 % (0.0-2.0); EOSINOPHILS % (AUTO) 1.2 % (0.0-6.0); HEMATOCRIT 39 % (33-45); HEMOGLOBIN 12.7 g/dL (11.5-14.8); LYMPHOCYTES # (AUTO) 1.2 /CMM (0.8-4.8); LYMPHOCYTES % (AUTO) 13.5 % (20.0-44.0); MEAN CORPUSCULAR HGB CONC 33 g/dl (31.0-36.0); MEAN CORPUSCULAR VOLUME 94 fL (82-100); MONOCYTES # (AUTO) 0.6 /CMM (0.1-1.30); MONOCYTES % (AUTO) 6.9 % (2.0-12.0); NEUTROPHILS # (AUTO) 6.8 /CMM (1.8-8.9); NEUTROPHILS % (AUTO) 77.6 % (43.0-81.0); PLATELET COUNT (AUTO) 229 /CMM (150-450); RED BLOOD CELL COUNT(AUTO) 4.13 MIL/uL (4.0-5.2); WHITE BLOOD COUNT (AUTO) 8.8 K/uL (4.3-11.0)
[2020-06-11 23:55] LABS: CALCIUM, SERUM 8.7 mg/dL (8.5-10.1); CREATININE 0.8 mg/dL (0.6-1.3); POTASSIUM 2.9 mmol/L (3.5-5.1)
== END 2020-06-12 00:13 | disposition home or self-care (01) ==
LOC: ER 22:09
DX: M79.18 Myalgia, other site (principal); I10 Essential (primary) hypertension; I25.10 Atherosclerotic heart disease of native coronary artery without angina pectoris; F25.9 Schizoaffective disorder, unspecified; F17.200 Nicotine dependence, unspecified, uncomplicated; E66.8 Other obesity; Z68.35 Body mass index [BMI] 35.0-35.9, adult; Z59.0 Homelessness; Z98.890 Other specified postprocedural states; Z79.82 Long term (current) use of aspirin; Z79.899 Other long term (current) drug therapy
CPT/HCPCS: 36415; 80048-TC; 85025-TC

== ENCOUNTER 2020-07-10 18:43 | Inpatient (IN) | payer OTHER ==
[~2020-07-10] VITALS: Ht 154.2 cm; Wt 91.7 kg
--- NOTE | 2020-07-10 19:05 | NUR ---
PT BIBSELF C/O DIZZINESS X1WEEK. PT AAOX4 BREATHING EVENLY AND UNLABORED. PT STATES "THE ROOM SPINS AND I CANT STOP THE FEELING" PT ATTACHED TO MONITOR AND POX. NEURO INTACT. SKIN WARN, DRY, AND INTACT. MD AT BEDSIDE FOR EVALUATION. LEFT HAND 20G IV INSERTED. PT GIVEN BLANKET AND CALLLIGHT WITHIN REACH. WILL CONTINUE TO MONITOR
[2020-07-10] MEDS ORDERED: IV NS 0.9% 1,000 ML BAG IV ONE (19:30)
--- NOTE | 2020-07-10 19:30 | NUR ---
LAB AT BESIDE
--- NOTE | 2020-07-10 20:01 | NUR ---
COVID SWAB SENT TO LAB
--- NOTE | 2020-07-10 20:02 | NUR ---
XRAY AT BEDSIDE
[2020-07-10 20:37] LABS: BASOPHILS % (AUTO) 0.8 % (0.0-2.0); EOSINOPHILS % (AUTO) 2.1 % (0.0-6.0); HEMATOCRIT 34 % (33-45); HEMOGLOBIN 11.6 g/dL (11.5-14.8); LYMPHOCYTES # (AUTO) 1.4 /CMM (0.8-4.8); LYMPHOCYTES % (AUTO) 22.9 % (20.0-44.0); MEAN CORPUSCULAR HGB CONC 34 g/dl (31.0-36.0); MEAN CORPUSCULAR VOLUME 92 fL (82-100); MONOCYTES # (AUTO) 0.6 /CMM (0.1-1.30); MONOCYTES % (AUTO) 10.3 % (2.0-12.0); NEUTROPHILS # (AUTO) 3.8 /CMM (1.8-8.9); NEUTROPHILS % (AUTO) 63.9 % (43.0-81.0); PLATELET COUNT (AUTO) 248 /CMM (150-450); RED BLOOD CELL COUNT(AUTO) 3.72 MIL/uL (4.0-5.2); WHITE BLOOD COUNT (AUTO) 5.9 K/uL (4.3-11.0)
[2020-07-10 20:39] LABS: CALCIUM, SERUM 8.8 mg/dL (8.5-10.1); CARBON DIOXIDE 30 mmol/L (21-32); CHLORIDE 103 mmol/L (98-107); CREATININE 0.7 mg/dL (0.6-1.3); GLUCOSE 111 mg/dL (74-106); POTASSIUM 2.9 mmol/L (3.5-5.1); SODIUM SERUM 140 mmol/L (136-145); UREA NITROGEN, BLOOD 24 mg/dL (7-18)
[2020-07-10 20:46] LABS: ALANINE AMINOTRANSFERASE 10 U/L (12-78); ALBUMIN 3.5 g/dL (3.4-5.0); ALCOHOL, BLOOD < 3 mg/dL (0-0); ALKALINE PHOSPHATASE 90 U/L (46-116); ASPARTATE AMINOTRANSFERASE 9 U/L (15-37); BILIRUBIN,DIRECT 0.1 mg/dL (0.0-0.2); BILIRUBIN,TOTAL 0.2 mg/dL (0.2-1.0)
[2020-07-10 20:53] LABS: THYROID STIMULATING HORMONE 0.859 uIU/mL (0.358-3.74)
[2020-07-10 20:55] LABS: SERUM AMMONIA 31 umol/L (11-32)
--- NOTE | 2020-07-10 20:57 | NUR ---
RETURNED FROM RADIOL[facility]
[2020-07-10] MEDS ORDERED: ENOXAPARIN SODIUM 40 MG/0.4 ML DISP.SYRIN SQ SCH (21:00)
[2020-07-10 21:09] LABS: BILIRUBIN,URINE NEGATIVE (NEGATIVE); COLOR,URINE YELLOW (YELLOW); LEUKOCYTE ESTERASE ,URINE TRACE (NEGATIVE); NITRITE, URINE POSITIVE (NEGATIVE); PH,URINE 5.5 (5.0-8.0); PROTEIN,URINE NEGATIVE (NEGATIVE); UGLUCOSE NEGATIVE (NEGATIVE); UROBILINOGEN,URINE 0.2 EU/dL (0.2)
--- NOTE | 2020-07-10 21:11 | NUR ---
REC'D NEG COVID RESULTS. AWARE
[2020-07-10 21:17] LABS: BACTERIA,URINE 1+ /HPF (None Seen); SQUAMOUS EPITHELIAL CELL,UR Few /HPF (None Seen); URINE AMORPHOUS URATE Few /HPF (None Seen)
[2020-07-10] MEDS ORDERED: POTASSIUM CHLORIDE 20 MEQ TAB.PRT.SR PO ONE ×2 (21:30→21:32)
[2020-07-10] MEDS ORDERED: ASPIRIN 81 MG TAB.CHEW PO ONE (21:30)
[2020-07-10] MEDS ORDERED: MECLIZINE HCL 12.5 MG TABLET PO ONE (21:30)
[2020-07-10] MEDS ORDERED: MECLIZINE HCL 25 MG TABLET ONE (21:32)
[2020-07-10] MEDS ORDERED: ASPIRIN 81 MG TAB.CHEW ONE (21:32)
[2020-07-10] MEDS ORDERED: CEFTRIAXONE 1 G in IV D5W 50 ML IV ONE (22:30)
--- NOTE | 2020-07-10 22:32 | NUR ---
GAVE REPORT TO GREG BAEZ FOR LEXY
[2020-07-10] MEDS ORDERED: CEFTRIAXONE 1GM BAG (ER ONLY) 50 ML IV ONE (22:33)
[2020-07-10 23:00] VITALS: BP 135/91
[2020-07-10] MEDS ORDERED: ACETAMINOPHEN 325 MG TABLET PO PRN (23:30)
[2020-07-10] MEDS ORDERED: ONDANSETRON HCL/PF 4 MG/2 ML VIAL IVP PRN (23:30)
[2020-07-10] MEDS ORDERED: HYDROCODONE/APAP 5/325MG TABLET PO PRN (23:30)
[2020-07-10] MEDS ORDERED: ZOLPIDEM TARTRATE 5 MG TABLET PO PRN (23:30)
[2020-07-10] MEDS ORDERED: CEFTRIAXONE 1 G in IV D5W 50 ML IV SCH (23:30)
[2020-07-11 04:00] VITALS: BP 129/83
[2020-07-11 06:50] LABS: BASOPHILS % (AUTO) 0.6 % (0.0-2.0); EOSINOPHILS % (AUTO) 3.5 % (0.0-6.0); HEMATOCRIT 32 % (33-45); HEMOGLOBIN 10.5 g/dL (11.5-14.8); LYMPHOCYTES # (AUTO) 1.4 /CMM (0.8-4.8); LYMPHOCYTES % (AUTO) 30.5 % (20.0-44.0); MEAN CORPUSCULAR HGB CONC 33 g/dl (31.0-36.0); MEAN CORPUSCULAR VOLUME 92 fL (82-100); MONOCYTES # (AUTO) 0.5 /CMM (0.1-1.30); MONOCYTES % (AUTO) 10.8 % (2.0-12.0); NEUTROPHILS # (AUTO) 2.5 /CMM (1.8-8.9); NEUTROPHILS % (AUTO) 54.6 % (43.0-81.0); PLATELET COUNT (AUTO) 206 /CMM (150-450); RED BLOOD CELL COUNT(AUTO) 3.43 MIL/uL (4.0-5.2); WHITE BLOOD COUNT (AUTO) 4.5 K/uL (4.3-11.0)
[2020-07-11] MEDS ORDERED: PANTOPRAZOLE 40 MG TABLET.DR PO SCH (07:30)
--- NOTE | 2020-07-11 07:42 | NUR ---
MS/RN OPENING NOTES RECEIVED PATIENT ON BED SLEEPING EASILY AROUSABLE BY NAME AND LIGHT TOUCH, ALERT AND ORIENTED X4. PATIENT IS ON ROOM AIR SATURATING WELL. PATIENT IN NO APPARENT RESPIRATORY DISTRESS NOTED. NO COMPLAINED OF PAIN AT THIS TIME. TELE MONITOR READING SINUS MARCY 54 BPM. WILL CONTINUE TO MONITOR.
[2020-07-11 07:54] LABS: ALANINE AMINOTRANSFERASE 8 U/L (12-78); ALBUMIN 3.1 g/dL (3.4-5.0); ALKALINE PHOSPHATASE 82 U/L (46-116); ASPARTATE AMINOTRANSFERASE 9 U/L (15-37); BILIRUBIN,TOTAL 0.1 mg/dL (0.2-1.0); CALCIUM, SERUM 8.8 mg/dL (8.5-10.1); CARBON DIOXIDE 28 mmol/L (21-32); CHLORIDE 106 mmol/L (98-107); CREATININE 0.5 mg/dL (0.6-1.3); GLUCOSE 102 mg/dL (74-106); MAGNESIUM 2.2 mg/dL (1.8-2.4); PHOSPHORUS 4.7 mg/dL (2.5-4.9); POTASSIUM 3.3 mmol/L (3.5-5.1); SODIUM SERUM 141 mmol/L (136-145); TOTAL PROTEIN, SERUM 6.2 g/dL (6.4-8.2); UREA NITROGEN, BLOOD 20 mg/dL (7-18)
[2020-07-11 07:59] LABS: CHOLESTEROL 135 mg/dL (<200); HDL CHOLESTEROL 45 mg/dL (40-60); LDL 81 mg/dL (0-99); TRIGLYCERIDES 62 mg/dL (30-150)
[2020-07-11 08:00] VITALS: BP 135/83
[2020-07-11 08:33] VITALS: BP 146/84
[2020-07-11] MEDS: DOCUSATE SODIUM 100 MG CAPSULE PO SCH ×2 (08:33→16:25)
[2020-07-11] MEDS ORDERED: FUROSEMIDE 20 MG/2 ML VIAL IV SCH (09:00)
[2020-07-11] MEDS ORDERED: POTASSIUM CHLORIDE 20 MEQ TAB.PRT.SR PO SCH (09:00)
[2020-07-11] MEDS ORDERED: ASPIRIN 81 MG TAB.CHEW PO SCH (09:00)
[2020-07-11] MEDS ORDERED: AMLODIPINE BESYLATE 10 MG TABLET PO SCH (09:00)
[2020-07-11] MEDS ORDERED: FERROUS SULFATE (325 MG) 325 MG/TAB TABLET PO SCH (09:00)
[2020-07-11 09:50] LABS: IRON, SERUM 40 ug/dl (50-175); TOTAL IRON BINDING CAPACITY 284 ug/dl (250-450)
[2020-07-11 10:11] LABS: FERRITIN 12 ng/mL (8-388)
--- NOTE | 2020-07-11 10:54 | NUR ---
MS/RN NOTES PATIENT REFUSED FOR DVT PUMP PLACEMENT EXPLAINED THE RISK AND BENEFITS. WILL CONTINUE TO MONITOR.
--- NOTE | 2020-07-11 14:20 | NUR ---
Social Service Consult: director of medical services consult requested for homelessness. Patient is a 65-year-old, female. MISBAH met with the patient bedside in the medical-surgical unit. Patient is alert and oriented x4. Patient presented anxious and was stating can you ask my doctor about doing the scope? Patient was admitted to the hospital on 07/10/2020 for chest pain and vertigo. Patient stated she is not homeless and currently lives at [address] [place] [address]; [phone]. SW asked the patient if she had access to social support and patient stated that she has inadequate social support. Patient reports that she receives Social Security Income. Patient stated she is independent with her ADLs and takes public transportation when needed. SW asked the patient about her history of substance use and the patient stated that she has no history of alcohol or drug use. Patient stated she has no history of psychiatric illness. Patient denies any current thoughts of suicide or homicide. Patient stated she will be returning to her prior living arrangement at her home. Patient requested for a bus or taxi voucher for transportation to her home. SW notified nursing staff of her request. MISBAH will follow up with nursing staff, as needed.
--- NOTE | 2020-07-11 14:31 | NUR ---
MS/RN NOTES PATIENT IS OUT IN THE UNIT AGRICULTURAL RESEARCH TECHNICIAN BY RADIOLOGY. PATIENT IN NO APPARENT RESPIRATORY DISTRESS NOTED. NO COMPLAINED OF PAIN.
--- NOTE | 2020-07-11 17:49 | NUR ---
MS/RN CLOSING NOTES PATIENT IS ALERT AND ORIENTED X4. PATIENT IN ROOM AIR SATURATION 96%. PATIENT IN NO APPARENT RESPIRATORY DISTRESS NOTED. NO COMPLAINED OF PAIN. DISCHARGED INSTRUCTIONS WAS GIVEN AND PATIENT VERBALIZED UNDERSTANDING. PATIENT ATE DINNER BEFORE SHE LEFT. PATIENT LEFT THE HOSPITAL IN MEDICALLY STABLE CONDITION WHEELED BY LUDIVINA RITCHIE ALL THE WAY TO THE LOBBY AND SUBSTANCE ABUSE SERVICES DIRECTOR BY STONEY. PATIENT IS A SELF CARE.
== END 2020-07-11 17:45 | disposition home or self-care (01) | DRG 198 ==
LOC: ER 18:43 → TELE 22:22 → MED 07-11 13:15
PROVIDERS: ADMIT Internal Medicine; ATTEND Internal Medicine
DX: I25.10 Atherosclerotic heart disease of native coronary artery without angina pectoris (principal); N39.0 Urinary tract infection, site not specified; I11.0 Hypertensive heart disease with heart failure; I50.33 Acute on chronic diastolic (congestive) heart failure; Z20.822 Contact with and (suspected) exposure to COVID-19; K21.9 Gastro-esophageal reflux disease without esophagitis; K59.00 Constipation, unspecified; M81.0 Age-related osteoporosis without current pathological fracture; E78.5 Hyperlipidemia, unspecified; E66.9 Obesity, unspecified; E87.6 Hypokalemia; Z79.82 Long term (current) use of aspirin; M19.90 Unspecified osteoarthritis, unspecified site; Z87.891 Personal history of nicotine dependence; Z68.38 Body mass index [BMI] 38.0-38.9, adult; D64.9 Anemia, unspecified; Z59.0 Homelessness; K44.9 Diaphragmatic hernia without obstruction or gangrene; R42 Dizziness and giddiness; J44.9 Chronic obstructive pulmonary disease, unspecified; N17.9 Acute kidney failure, unspecified; F31.9 Bipolar disorder, unspecified; F25.9 Schizoaffective disorder, unspecified
CPT/HCPCS: 36415; 70450-TC; 71045-TC; 80048-TC; 80053-TC; 80061-TC; 80076-TC; 81001; 82140-TC; 82728-TC; 83540-TC; 83735-TC; 83880; 84100-TC; 84443-TC; 84484-TC; 85025-TC; 85730-TC; 87081-TC; 87086-TC; 93307-TC; C9803; G0378; G0480; J0696; J1650; J1940; J7060; J8597

== ENCOUNTER 2020-08-20 17:51 | Emergency (ER) | payer OTHER ==
[~2020-08-20] VITALS: Ht 162.6 cm; Wt 99.3 kg
--- NOTE | 2020-08-20 17:51 | NUR ---
PT BIB SELF C/O DIZZINESS AND PALPITATION FOR 2 WEEKS. PT IS AAOX4, NOT IN RESPIRATORY DISTRESS, HOOKED TO FORESTER SILVICULTURE, KEPT RESTED AND COMFORTABLE. WILL CONTINUE TO MONITOR.
--- NOTE | 2020-08-20 18:14 | NUR ---
SEEN AND EXAMINED BY .
[2020-08-20 18:28] LABS: BASOPHILS % (AUTO) 0.5 % (0.0-2.0); EOSINOPHILS % (AUTO) 2.4 % (0.0-6.0); HEMATOCRIT 34 % (33-45); HEMOGLOBIN 10.8 g/dL (11.5-14.8); LYMPHOCYTES # (AUTO) 0.9 /CMM (0.8-4.8); LYMPHOCYTES % (AUTO) 15.2 % (20.0-44.0); MEAN CORPUSCULAR HGB CONC 32 g/dl (31.0-36.0); MEAN CORPUSCULAR VOLUME 89 fL (82-100); MONOCYTES # (AUTO) 0.6 /CMM (0.1-1.30); NEUTROPHILS # (AUTO) 4.4 /CMM (1.8-8.9); NEUTROPHILS % (AUTO) 71.9 % (43.0-81.0); PLATELET COUNT (AUTO) 280 /CMM (150-450); RED BLOOD CELL COUNT(AUTO) 3.78 MIL/uL (4.0-5.2); WHITE BLOOD COUNT (AUTO) 6.1 K/uL (4.3-11.0)
[2020-08-20 18:38] LABS: POTASSIUM 3.7 mmol/L (3.5-5.1)
--- NOTE | 2020-08-20 19:37 | NUR ---
Patient discharged to home in stable condition. Written and verbal after care instructions given. Patient verbalizes understanding of instruction.
[2020-08-20 19:38] VITALS: BP 117/83
== END 2020-08-20 19:38 | disposition home or self-care (01) ==
LOC: ER 17:54
DX: R00.2 Palpitations (principal); I11.0 Hypertensive heart disease with heart failure; I50.9 Heart failure, unspecified; I25.10 Atherosclerotic heart disease of native coronary artery without angina pectoris; M81.0 Age-related osteoporosis without current pathological fracture; D64.9 Anemia, unspecified; F25.9 Schizoaffective disorder, unspecified; F17.200 Nicotine dependence, unspecified, uncomplicated; Z98.890 Other specified postprocedural states; Z90.89 Acquired absence of other organs; Z79.899 Other long term (current) drug therapy; Z60.2 Problems related to living alone; Z79.82 Long term (current) use of aspirin
CPT/HCPCS: 36415; 80048-TC; 83735-TC; 85025-TC

== ENCOUNTER 2020-12-05 15:25 | Emergency (ER) | payer OTHER ==
[~2020-12-05] VITALS: Ht 167.6 cm; Wt 90.7 kg
[2020-12-05 15:40] VITALS: BP 151/106
--- NOTE | 2020-12-05 15:42 | NUR ---
BILAT EAR PAIN X 1 WEEK, POSSIBLE COTTON STUCK WHILE CLEANING. RATES PAIN 5/10. DENIES CHANGE IN HEARING. WILL CONTINUE TO MONITOR THE PATIENT.
== END 2020-12-05 16:46 | disposition home or self-care (01) ==
LOC: ER 15:27
DX: T16.2XXA Foreign body in left ear, initial encounter (principal); I10 Essential (primary) hypertension; I25.10 Atherosclerotic heart disease of native coronary artery without angina pectoris; M81.0 Age-related osteoporosis without current pathological fracture; D64.9 Anemia, unspecified; F25.9 Schizoaffective disorder, unspecified; F17.200 Nicotine dependence, unspecified, uncomplicated; Z90.89 Acquired absence of other organs; Z98.890 Other specified postprocedural states; Z60.2 Problems related to living alone; Z79.82 Long term (current) use of aspirin; Z79.899 Other long term (current) drug therapy; X58.XXXA Exposure to other specified factors, initial encounter; Y93.89 Activity, other specified; Y92.89 Other specified places as the place of occurrence of the external cause; Y99.8 Other external cause status

== ENCOUNTER 2021-04-03 14:09 | Inpatient (IN) | payer OTHER ==
[~2021-04-03] VITALS: Ht 162.6 cm; Wt 101.2 kg
--- NOTE | 2021-04-03 14:49 | NUR ---
PT BIBSELF C/O GENERALIZED BODY PAIN X 2 WEEKS. PT A/OX3. TOLERATING R/A WELL WITH NO SOB.
--- NOTE | 2021-04-03 16:23 | NUR ---
URINE COLLECTED AND SENT TO LAB
--- NOTE | 2021-04-03 16:23 | NUR ---
SALT MAKER AT PT'S BEDSIDE
[2021-04-03 16:49] LABS: BASOPHILS % (AUTO) 0.2 % (0.0-2.0); EOSINOPHILS % (AUTO) 0.1 % (0.0-6.0); HEMATOCRIT 37 % (33-45); HEMOGLOBIN 11.4 g/dL (11.5-14.8); LYMPHOCYTES % (AUTO) 7.3 % (20.0-44.0); MEAN CORPUSCULAR HGB CONC 31 g/dl (31.0-36.0); MEAN CORPUSCULAR VOLUME 88 fL (82-100); MONOCYTES # (AUTO) 0.8 K/uL (0.1-1.30); MONOCYTES % (AUTO) 5.9 % (2.0-12.0); NEUTROPHILS # (AUTO) 12.3 K/uL (1.8-8.9); NEUTROPHILS % (AUTO) 86.5 % (43.0-81.0); PLATELET COUNT (AUTO) 361 K/uL (150-450); RED BLOOD CELL COUNT(AUTO) 4.18 MIL/uL (4.0-5.2); WHITE BLOOD COUNT (AUTO) 14.3 K/uL (4.3-11.0)
[2021-04-03 17:09] LABS: CALCIUM, SERUM 9.1 mg/dL (8.5-10.1)
[2021-04-03 17:12] LABS: BILIRUBIN,URINE SMALL (NEGATIVE); COLOR,URINE YELLOW (YELLOW); LEUKOCYTE ESTERASE ,URINE NEGATIVE (NEGATIVE); NITRITE, URINE NEGATIVE (NEGATIVE); PROTEIN,URINE 100 mg/dl (NEGATIVE); UGLUCOSE NEGATIVE (NEGATIVE); UROBILINOGEN,URINE 0.2 EU/dL (0.2)
[2021-04-03 17:17] LABS: ALBUMIN 4.1 g/dL (3.4-5.0); BILIRUBIN,TOTAL 0.3 mg/dL (0.2-1.0); TOTAL PROTEIN, SERUM 7.4 g/dL (6.4-8.2)
[2021-04-03] MEDS ORDERED: HYDROCODONE/APAP 5/325MG TABLET ONE (17:28)
[2021-04-03] MEDS ORDERED: HYDROCODONE/APAP 5/325MG TABLET PO ONE (17:30)
[2021-04-03] MEDS ORDERED: IV NS 0.9% 250 ML IV ONE ×2 (17:31→21:02)
[2021-04-03] MEDS ORDERED: IOHEXOL-350 100 ML VIAL IV ONE ×2 (17:31→21:02)
[2021-04-03 17:33] LABS: BACTERIA,URINE 1+ /HPF (None Seen); RBC,URINE 0-2 /HPF (0-2); SQUAMOUS EPITHELIAL CELL,UR Few /HPF (None Seen); WBC,URINE 0-2 /HPF (0-3)
[2021-04-03 17:34] LABS: COARSE GRANULAR CASTS,URINE Moderate /LPF (None Seen); HYALINE CASTS, URINE Few /LPF (None Seen)
--- NOTE | 2021-04-03 18:22 | NUR ---
L WRIST #20G S/L PATENT AND INTACT. LAC #20G S/L; PATENT AND INTACT
--- NOTE | 2021-04-03 19:21 | NUR ---
PT TAKEN TO CT VIA [facility]
--- NOTE | 2021-04-03 19:49 | NUR ---
COVID SWAB COLLECTED AND SENT TO LAB
--- NOTE | 2021-04-03 19:50 | NUR ---
called [facility] for ct read
--- NOTE | 2021-04-03 20:10 | NUR ---
CALLED [facility] FOR REPORT OF CT TO BE FAXED TO US SPOKE WITH ORI
--- NOTE | 2021-04-03 20:15 | NUR ---
CALLED [facility] FAXED CLINICALS [phone] PHONE [phone] NUHA
--- NOTE | 2021-04-03 20:19 | NUR ---
T: [phone] [facility] [place] PER MIRZA # [id number]
--- NOTE | 2021-04-03 20:20 | NUR ---
CALLED [facility] [phone] [facility] TO [phone]
--- NOTE | 2021-04-03 20:27 | NUR ---
faxed clinical adn face sheet to [facility] intake at [phone]
--- NOTE | 2021-04-03 20:27 | NUR ---
[facility] [phone] [facility] [phone]
--- NOTE | 2021-04-03 20:28 | NUR ---
faxed clinical adn face sheet to [facility] AT [phone]
--- NOTE | 2021-04-03 20:30 | NUR ---
CALLED [facility] [phone] NO VASCULAR PER DAIN AT ER.
--- NOTE | 2021-04-03 20:38 | NUR ---
T: [phone] [facility]
--- NOTE | 2021-04-03 20:38 | NUR ---
CALLED [facility] AND SPOKE TO YOSI FOR POSSIBLE TRANSFER FOR POSSIBLE TRANSFER FOR HIGHER LEVEL OF CARE
--- NOTE | 2021-04-03 20:41 | NUR ---
CALLED VASCULAR AT [facility] [phone] GREWAL.
--- NOTE | 2021-04-03 20:46 | NUR ---
FAXED CLININCAL AND FACE SHEET TO [facility] AT [phone]
--- NOTE | 2021-04-03 20:47 | NUR ---
REC'D A CALL FROM [facility]: NO BED AVAILABLE
--- NOTE | 2021-04-03 20:51 | NUR ---
CALLED JANICE AT [facility] INFORMING WE ARE AWAITING FOR DR. GANT TO CALL US BACK. [phone]
--- NOTE | 2021-04-03 20:55 | NUR ---
DR. GANT SPEAKING WITH DR. GREWAL
--- NOTE | 2021-04-03 21:19 | NUR ---
PT RETURNED TO ER BED [address]
--- NOTE | 2021-04-03 21:40 | NUR ---
CALLED [facility] FOR CTA RESULTS AND REQUESTED TO BE FAXED OVER
[2021-04-03] MEDS ORDERED: IV NS 0.9% 1,000 ML IV PRN (22:30)
[2021-04-03] MEDS ORDERED: MORPHINE SULFATE INJ 10 MG/ML DISP.SYRIN IV PRN (22:30)
[2021-04-03] MEDS ORDERED: LABETALOL 20 MG/4 ML VIAL IV PRN (22:30)
--- NOTE | 2021-04-03 22:38 | NUR ---
CALLED TO BED 252
--- NOTE | 2021-04-03 22:39 | NUR ---
ICU BED 252
--- NOTE | 2021-04-03 22:50 | NUR ---
SARAH, HOSPITALIST AT BED SIDE
[2021-04-03] MEDS ORDERED: LABETALOL HCL IV 100MG VIAL ONE (22:55)
[2021-04-03] MEDS ORDERED: LABETALOL 20 MG/4 ML VIAL IV ONE (23:00)
--- NOTE | 2021-04-03 23:21 | NUR ---
CLINICALS WERE GIVEN TO ABRAN FROM [facility] OVER THE PHONE
--- NOTE | 2021-04-03 23:23 | NUR ---
REPORT GIVEN TO RAKESH SENIOR CONSTRUCTION MANAGER FOR LEXY
--- NOTE | 2021-04-03 23:29 | NUR ---
VERBAL AUTH FROM DR CAIN TO ADMIT THE PT
--- NOTE | 2021-04-03 23:49 | NUR ---
PT TRANSFERRED TO ICU 262 VIA ACLS PROTOCOL. ALL BELONGINGS WITH PT.
[2021-04-04] VITALS (33 sets, daily range): BP systolic 78–146; BP diastolic 26–102
--- NOTE | 2021-04-04 00:20 | NUR ---
HOOKER LASTER NOTE REC'D PT FROM ER VIA [facility], PT IS ABLE TO AMBULATE USING WALKER. PT ON ROOM AIR, NO SOB NO DISTRESS NOTED, BREATHING NONLABORED. PT IS SINUS ON THE MONITOR WITH HEART RATE IN 70S. PT HAS LEFT WRIST AND LEFT AC #20 BOTH 20 GAUGE, BOTH FLUSHED. PT DENIES PAIN AT THIS TIME. REC'D PAIN MEDS IN ER. VERBALIZES FEELING PAIN FREE. PULSES PALPABLE, DENIES ALLERGIES. PT REQUESTS BED SIDE COMMODE. ASSISTED TO VOID, PT IS INDEPENDENT WITH STAND BY ASSIST. PT COOPERATIVE, SAFETY MEASURES IN PLACE HOB ELEVATED SIDE RAILS UP X2 BED LOCKED IN LOWEST POSITION WITH BED ALARM ON. CALL LIGHT WITHIN REACH. WILL CONT TO MONITOR AND KEEP BPO WITHIN ORDERED PARAMETERS.
[2021-04-04] MEDS ORDERED: LABETALOL 20 MG/4 ML VIAL IV PRN (01:00)
--- NOTE | 2021-04-04 01:00 | NUR ---
RN NOTE REGIONAL DIRECTOR OF ADMISSIONS [facility] AT BEDSIDE. CLARIFIED MEDICATIONS, PT CAN HAVE MORPHINE PRN FOR SEVERE PAIN AND TRANDATE IV IS TO BE GIVEN Q4H PRN IN ORDER TO KEEP SBP <140
--- NOTE | 2021-04-04 03:30 | NUR ---
RN NOTE-CTA/IMAGING NOT AVAILABLE ON [employer], NOT ACCESSIBLE. PHYSICAL COPY PRINT OUT IN CHART.
[2021-04-04 05:08] LABS: BASOPHILS % (AUTO) 0.4 % (0.0-2.0); EOSINOPHILS % (AUTO) 0.5 % (0.0-6.0); HEMATOCRIT 29 % (33-45); HEMOGLOBIN 9.8 g/dL (11.5-14.8); LYMPHOCYTES # (AUTO) 1.8 K/uL (0.8-4.8); LYMPHOCYTES % (AUTO) 22.9 % (20.0-44.0); MEAN CORPUSCULAR HGB CONC 33 g/dl (31.0-36.0); MEAN CORPUSCULAR VOLUME 85 fL (82-100); MONOCYTES # (AUTO) 0.7 K/uL (0.1-1.30); MONOCYTES % (AUTO) 9.7 % (2.0-12.0); NEUTROPHILS # (AUTO) 5.1 K/uL (1.8-8.9); NEUTROPHILS % (AUTO) 66.5 % (43.0-81.0); PLATELET COUNT (AUTO) 261 K/uL (150-450); RED BLOOD CELL COUNT(AUTO) 3.45 MIL/uL (4.0-5.2); WHITE BLOOD COUNT (AUTO) 7.7 K/uL (4.3-11.0)
[2021-04-04 05:38] LABS: ALBUMIN 3.5 g/dL (3.4-5.0); BILIRUBIN,TOTAL 0.3 mg/dL (0.2-1.0); CALCIUM, SERUM 8.1 mg/dL (8.5-10.1); CREATININE 0.7 mg/dL (0.6-1.3); MAGNESIUM 2.2 mg/dL (1.8-2.4); POTASSIUM 3.7 mmol/L (3.5-5.1); TOTAL PROTEIN, SERUM 6.2 g/dL (6.4-8.2)
--- NOTE | 2021-04-04 06:44 | NUR ---
RN NOTE CLOSING ICU NO SIGNIFICANT CHANGES IN PT CONDITION.. REMAINS ON ROOM AIR, NO DISTRESS NOTED. BP LESS THAN 140 SBP. PT SLEPT COMFORTABLY THROUGHOUT NIGHT, DENIES PAIN. ALL NEEDS ATTENDED. SAFETY MEASURES IN PLACE. WILL ENDORSE CARE TO DAY SHIFT RN FOR CONTINUATION OF CARE
[2021-04-04] MEDS ORDERED: PANTOPRAZOLE 40 MG TABLET.DR PO SCH (07:30)
--- NOTE | 2021-04-04 08:00 | NUR ---
RN NOTES RECEIVED PATIENT IN THE BED A/O X3 AFEBRILE, BP122/57. INFUSING NS @70ML/HR. PATIENT STATE " I WANT TO GO HOME AGAINST MEDICAL ADVICE AND I WILLING SIGN IT ". EXPLAINED PATIENT RISK AND CONSEQUENCES, BUT PATIENT RESIST GOING HOME NOW. SEEN PATIENT VIA VASCULAR MD GUZMÁN, AND EXPLAINED PATIENT RISK. medical management for bp less than 120/80 2. 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 if she wishes to be discharged today, she should either be transferred to [facility] or sign out ama
[2021-04-04] MEDS ORDERED: ASPIRIN 81 MG TAB.CHEW PO SCH (09:00)
[2021-04-04] MEDS ORDERED: AMLODIPINE BESYLATE 10 MG TABLET PO SCH (09:00)
[2021-04-04] MEDS ORDERED: CHOLECALCIFEROL 1,000 UNIT TABLET (VIT D3) PO SCH (09:00)
[2021-04-04] MEDS ORDERED: Medication Not On Formulary EA (Chlorthalidone 25 MG) PO SCH (09:00)
[2021-04-04] MEDS ORDERED: FERROUS SULFATE (325 MG) 325 MG/TAB TABLET PO SCH (09:00)
--- NOTE | 2021-04-04 09:05 | NUR ---
RN NOTES PATIENT SIGN AMA FORM AT THIS TIME, AND BELONGING LIST. PATIENT STATE " MY CONDITION IS NOT NEW, AND I WILL FOLLOW UP MY PCP, AND GO [facility] . ESCORTED PATIENT TO THE LOBBY FOR SAFETY.
--- NOTE | 2021-04-04 09:09 | NUR ---
SS consult requested for living alone, allegedly had no support or income. SW will follow up at a later time.
--- NOTE | 2021-04-05 11:33 | NUR ---
SS consult SW received consult for: lives alone, no support, no income. Pt. was departed from hospital; social economist was not able to see patient. Per EMR, pt. came to hospital due to lightheadedness, pelvic pain, and vomiting. Per pt., these symptoms have been intermittent for couple months. Patient experienced recent falls where she landed on her bottom. SW is reporting to APS due to patient not having support/caregiver at home. Pt. left hospital AMA. APS Intake #[id number]
== END 2021-04-04 09:15 | disposition left against medical advice (07) | DRG 197 ==
LOC: ER 14:12 → ICU 23:51
PROVIDERS: ADMIT Nurse Practitioner Acute Care; ATTEND Internal Medicine
DX: I71.4 Abdominal aortic aneurysm, without rupture (principal); I77.79 Dissection of other specified artery; I72.3 Aneurysm of iliac artery; F25.9 Schizoaffective disorder, unspecified; I10 Essential (primary) hypertension; I25.10 Atherosclerotic heart disease of native coronary artery without angina pectoris; F31.9 Bipolar disorder, unspecified; K44.9 Diaphragmatic hernia without obstruction or gangrene; Z87.891 Personal history of nicotine dependence; E78.5 Hyperlipidemia, unspecified; J44.9 Chronic obstructive pulmonary disease, unspecified; E66.9 Obesity, unspecified; M48.56XA Collapsed vertebra, not elsewhere classified, lumbar region, initial encounter for fracture; Z68.38 Body mass index [BMI] 38.0-38.9, adult; M81.0 Age-related osteoporosis without current pathological fracture; Z53.29 Procedure and treatment not carried out because of patient's decision for other reasons; K55.20 Angiodysplasia of colon without hemorrhage; Z98.890 Other specified postprocedural states; Z79.82 Long term (current) use of aspirin; Z79.899 Other long term (current) drug therapy; Z91.81 History of falling; D72.829 Elevated white blood cell count, unspecified; R91.1 Solitary pulmonary nodule; Z87.19 Personal history of other diseases of the digestive system; D64.9 Anemia, unspecified; Z86.59 Personal history of other mental and behavioral disorders
CPT/HCPCS: 36415; 80053-TC; 81001; 83690-TC; 83735-TC; 83880; 84100-TC; 84484-TC; 85025-TC; 85378-TC; 87081-TC; C9803; G0378; J3490; J7050; Q9967

== ENCOUNTER 2021-06-30 13:16 | Inpatient (IN) | payer OTHER ==
[2021-06-30] VITALS: BP 123/66
[~2021-06-30] VITALS: Ht 165.1 cm; Wt 99.8 kg
--- NOTE | 2021-06-30 13:58 | NUR ---
pt bibra c/o sob and weakness for 3 days, pt connected to monitor vss.
[2021-06-30 14:06] LABS: BASOPHILS % (AUTO) 1.1 % (0.0-2.0); EOSINOPHILS % (AUTO) 1.2 % (0.0-6.0); LYMPHOCYTES # (AUTO) 0.7 K/uL (0.8-4.8); LYMPHOCYTES % (AUTO) 17.4 % (20.0-44.0); MEAN CORPUSCULAR HGB CONC 29 g/dl (31.0-36.0); MEAN CORPUSCULAR VOLUME 72 fL (82-100); MONOCYTES # (AUTO) 0.4 K/uL (0.1-1.30); MONOCYTES % (AUTO) 9.4 % (2.0-12.0); NEUTROPHILS # (AUTO) 2.9 K/uL (1.8-8.9); NEUTROPHILS % (AUTO) 70.9 % (43.0-81.0); PLATELET COUNT (AUTO) 151 K/uL (150-450); RED BLOOD CELL COUNT(AUTO) 2.45 MIL/uL (4.0-5.2); WHITE BLOOD COUNT (AUTO) 4.1 K/uL (4.3-11.0)
[2021-06-30 14:11] LABS: HEMATOCRIT 18 % (33-45); HEMOGLOBIN 5.1 g/dL (11.5-14.8)
[2021-06-30] MEDS ORDERED: PRAV40TA3 PO (14:14)
[2021-06-30 14:45] LABS: CALCIUM, SERUM 8.1 mg/dL (8.5-10.1); CARBON DIOXIDE 22 mmol/L (21-32); CHLORIDE 108 mmol/L (98-107); CREATININE 0.7 mg/dL (0.6-1.3); GLUCOSE 89 mg/dL (74-106); SODIUM SERUM 139 mmol/L (136-145); UREA NITROGEN, BLOOD 7 mg/dL (7-18)
--- NOTE | 2021-06-30 14:45 | NUR ---
MOVE SHEET SUBMITTED AND CALLED FOR BED.
[2021-06-30 15:11] LABS: ALBUMIN 3.3 g/dL (3.4-5.0); BILIRUBIN,TOTAL 0.2 mg/dL (0.2-1.0); TOTAL PROTEIN, SERUM 6.1 g/dL (6.4-8.2)
[2021-06-30] MEDS ORDERED: IOHEXOL-350 100 ML VIAL IV ONE (15:30)
--- NOTE | 2021-06-30 16:05 | NUR ---
[facility] CALLED HOG COUNTER PAGED.
[2021-06-30] MEDS ORDERED: PANTOPRAZOLE 40 MG TABLET.DR PO SCH (17:30)
[2021-06-30] MEDS ORDERED: FERROUS SULFATE (325 MG) 325 MG/TAB TABLET PO SCH (17:30)
[2021-06-30] MEDS ORDERED: MORPHINE SULFATE INJ 2 MG/ML DISP.SYRIN IV PRN (18:00)
[2021-06-30] MEDS ORDERED: LABETALOL 20 MG/4 ML VIAL IV PRN (18:00)
[2021-06-30] MEDS ORDERED: PANTOPRAZOLE 40 MG VIAL IV ONE (18:00)
[2021-06-30] MEDS ORDERED: ONDANSETRON HCL/PF 4 MG/2 ML VIAL IVP PRN (18:00)
[2021-06-30] MEDS: ATORVASTATIN 10 MG TABLET PO SCH (18:00)
[2021-06-30] MEDS ORDERED: ACETAMINOPHEN 325 MG TABLET PO PRN (18:00)
[2021-06-30 18:12] LABS: IRON, SERUM 12 ug/dl (50-175); TOTAL IRON BINDING CAPACITY 348 ug/dl (250-450)
[2021-06-30 18:27] LABS: FERRITIN 6 ng/mL (8-388)
[2021-06-30 18:58] LABS: EOSINOPHILS % (MANUAL) 2 % (0-4); LYMPHOCYTES % (MANUAL) 31 % (16-48); MONOCYTES % (MANUAL) 6 % (0-11.0); NEUTROPHILS % (MANUAL) 61 (42-76)
[2021-06-30] MEDS ORDERED: PANTOPRAZOLE 40 MG VIAL ONE (19:49)
[2021-06-30] MEDS ORDERED: ATORVASTATIN 10 MG TABLET ONE (19:49)
--- NOTE | 2021-06-30 19:53 | NUR ---
RECIEVED BED 327-1
--- NOTE | 2021-06-30 20:24 | NUR ---
report given to saurabh (hernan).
--- NOTE | 2021-06-30 20:35 | NUR ---
PT IS GETTING TRANSFERRED TO 327 UNDER ACLS
--- NOTE | 2021-06-30 20:42 | NUR ---
pt transferred to 3w per acls protocol.
[2021-06-30 20:45] VITALS: BP 126/86
--- NOTE | 2021-06-30 20:45 | NUR ---
CONTINUOUS LINTER DRIER OPERATORLATIN TEACHER NOTES PATIENT ARRIVED ON UNIT VIA GURNEY WITH ER NURSE. RECEIVED PATIENT LAYING AWAKE IN BED. A/O X4. PATIENT WITH REGULAR AND UNLABORED BREATHING ON ROOM AIR, TOLERATED WELL. NO SIGNS OR SYMPTOMS OF DISTRESS NOTED AT THIS TIME. NO COMPLAINS OF PAIN OR DISCOMFORT AT THIS TIME. PATIENT IS ON TELE MONITOR READING SR @ 70 BPM. IV ACCESS RAC G #20 SL. IV ACCESS PATENT AND INTACT. SAFETY PRECAUTIONS ENFORCED WITH BED LOCKED AND AT LOWEST POSITION. SIDERAILS UP X2. CALL LIGHT WITHIN REACH AT ALL TIMES. WILL CONTINUE TO MONITOR PATIENT.
[2021-06-30 20:46] LABS: HEMOGLOBIN 6.4 g/dL (11.5-14.8)
--- NOTE | 2021-06-30 21:00 | NUR ---
SENIOR BUYER PLANNER NOTES LAB CALLED WITH PATIENT'S HGB OF 6.4. HOSPITALIST MADE AWARE ORDERED 1 UNIT OF PRBC. WILL CONTINUE TO MONITOR PATIENT.
[2021-06-30 22:10] VITALS: BP 131/66
--- NOTE | 2021-06-30 22:15 | NUR ---
ASBESTOS HANDLER NOTES BLOOD TRANSFUSION STARTED. PATIENT TOLERATING WELL. NO SIGNS AND SYMPTOMS OF DISTRESS. WILL CONTINUE TO MONITOR PATIENT.
[2021-06-30 22:30] VITALS: BP 154/90
[2021-06-30 23:15] VITALS: BP 153/89
[2021-07-01] VITALS (7 sets, daily range): BP systolic 123–152; BP diastolic 66–90
--- NOTE | 2021-07-01 00:50 | NUR ---
OLERICULTURIST NOTES BLOOD TRANSFUSION COMPLETED. PATIENT TOLERATED WELL. NO SIGNS AND SYMPTOMS OF DISTRESS. WILL CONTINUE TO MONITOR PATIENT.
[2021-07-01 04:17] LABS: BASOPHILS % (AUTO) 0.7 % (0.0-2.0); EOSINOPHILS % (AUTO) 1.1 % (0.0-6.0); LYMPHOCYTES # (AUTO) 1.2 K/uL (0.8-4.8); LYMPHOCYTES % (AUTO) 25.4 % (20.0-44.0); MEAN CORPUSCULAR HGB CONC 31 g/dl (31.0-36.0); MEAN CORPUSCULAR VOLUME 75 fL (82-100); MONOCYTES # (AUTO) 0.8 K/uL (0.1-1.30); MONOCYTES % (AUTO) 16.2 % (2.0-12.0); NEUTROPHILS # (AUTO) 2.7 K/uL (1.8-8.9); NEUTROPHILS % (AUTO) 56.6 % (43.0-81.0); PLATELET COUNT (AUTO) 259 K/uL (150-450); RED BLOOD CELL COUNT(AUTO) 2.66 MIL/uL (4.0-5.2); WHITE BLOOD COUNT (AUTO) 4.7 K/uL (4.3-11.0)
[2021-07-01 04:31] LABS: BILIRUBIN,TOTAL 0.9 mg/dL (0.2-1.0); CALCIUM, SERUM 7.8 mg/dL (8.5-10.1); CREATININE 0.8 mg/dL (0.6-1.3); MAGNESIUM 2.2 mg/dL (1.8-2.4); PHOSPHORUS 5.7 mg/dL (2.5-4.9); POTASSIUM 4.2 mmol/L (3.5-5.1); TOTAL PROTEIN, SERUM 5.5 g/dL (6.4-8.2)
[2021-07-01 04:33] LABS: HEMATOCRIT 20 % (33-45)
[2021-07-01 04:34] LABS: HEMOGLOBIN 6.1 g/dL (11.5-14.8)
--- NOTE | 2021-07-01 04:35 | NUR ---
SPARERIBS TRIMMER NOTES LAB CALLED WITH PATIENT'S HGB AND HCT OF 6.1 AND 20. HOSPITALIST MADE AWARE ORDERED 1 UNIT OF PRBC. WILL CONTINUE TO MONITOR PATIENT.
--- NOTE | 2021-07-01 05:50 | NUR ---
TELEPHONE SEX WORKER NOTES BLOOD TRANSFUSION STARTED. PATIENT TOLERATING WELL. NO SIGNS AND SYMPTOMS OF DISTRESS. WILL CONTINUE TO MONITOR PATIENT.
[2021-07-01 06:07] LABS: BAND % (MANUAL) 1 % (0.0-5.0); EOSINOPHILS % (MANUAL) 1 % (0-4); LYMPHOCYTES % (MANUAL) 29 % (16-48); MONOCYTES % (MANUAL) 11 % (0-11.0); NEUTROPHILS % (MANUAL) 58 (42-76)
--- NOTE | 2021-07-01 06:45 | NUR ---
DOT COMPLIANCE COORDINATOR CLOSING NOTES PATIENT STILL LAYING AWAKE IN BED. A/O X4. PATIENT WITH REGULAR AND UNLABORED BREATHING ON ROOM AIR, TOLERATED WELL. NO SIGNS OR SYMPTOMS OF DISTRESS NOTED AT THIS TIME. NO COMPLAINS OF PAIN OR DISCOMFORT AT THIS TIME. PATIENT IS ON TELE MONITOR READING SR @ 86 BPM. IV ACCESS RAC G #20 SL. IV ACCESS PATENT AND INTACT. SAFETY PRECAUTIONS ENFORCED WITH BED LOCKED AND AT LOWEST POSITION. SIDERAILS UP X2. CALL LIGHT WITHIN REACH AT ALL TIMES. WILL ENDORSE CONTINUITY OF CARE TO DAY SHIFT NURSE.
--- NOTE | 2021-07-01 07:25 | NUR ---
CONSTRUCTION ECONOMIST NOTES RECEIVED PATIENT IN BED, AWAKE, VERBALLY RESPONSIVE. NO SIGNS OF ACUTE DISTRESS NOTED. ON ROOM AIR, TOLERATING WELL. NO SOB NOTED. BLOOD TRANSFUSION ONGOING AT THIS TIME, NO A/R NOTED. NO C/O PAIN OR DISCOMFORT. SAFETY MEASURES MAINTAINED. WILL CONTINUE TO MONITOR.
[2021-07-01] MEDS: AMLODIPINE BESYLATE 10 MG TABLET PO SCH (08:47)
[2021-07-01] MEDS: CHOLECALCIFEROL 1,000 UNIT TABLET (VIT D3) PO SCH (08:47)
[2021-07-01] MEDS: ASPIRIN 81 MG TAB.CHEW PO SCH (08:48)
--- NOTE | 2021-07-01 08:50 | NUR ---
RN NOTES BLOOD TRANSFUSION FINISHED. NO A/R NOTED. VITAL SIGNS WNL.
[2021-07-01] MEDS ORDERED: CHOLECALCIFEROL 2000 UNIT PO SCH (09:00)
[2021-07-01] MEDS ORDERED: Medication Not On Formulary EA (Chlorthalidone 25 MG) PO SCH (09:00)
--- NOTE | 2021-07-01 09:49 | NUR ---
RN NOTES SEEN BY DR. COLLINS WITH NEW ORDERS, NOTED AND CARRIED OUT.
[2021-07-01 11:13] LABS: HEMOGLOBIN 7.2 g/dL (11.5-14.8)
[2021-07-01] MEDS: SOD FERRIC GLUC 125 MG in IV NS 0.9% 100 ML IV SCH (14:09)
[2021-07-01] MEDS: ATORVASTATIN 10 MG TABLET PO SCH (17:05)
--- NOTE | 2021-07-01 18:57 | NUR ---
VARIOUS EXCEPTIONALITIES TEACHER NOTES PATIENT IN BED, AWAKE, VERBALLY RESPONSIVE. NO SIGNS OF ACUTE DISTRESS NOTED. STABLE ON ROOM AIR, TOLERATING WELL. NO SOB NOTED. S/P BLOOD TRANSFUSION OF 1 PRBC IN THE MORNING. ALL DUE MEDS GIVEN. NO C/O PAIN OR DISCOMFORT. ON TELEMONITOR WITH CURRENT READING SHOWING NSR WITH HR @ 75. SAFETY MEASURES MAINTAINED. WILL ENDORSE TO NEXT SHIFT.
--- NOTE | 2021-07-01 19:30 | NUR ---
ELECTRIC METER SETTER OPENING NOTES: RECEIVED PATIENT AWAKE IN BED, BED IN LOW POSITION CALL LIGHTS WITHIN REACH, NO COMPLAIN ODF PAIN AND DISCOMFORT AT THIS TIME, PATIENT IS A/0 X4 AMBULATORY WITH ABLE TO MAKE NEEDS KNOWN, ON TELE MONITORING, SR-78 WITH PVC, NO SYMPTOMS WAS OBSERVED, ON ROOM AIR SATURATING WELL, IV LINE AT RAC# 20 SL, PATIENT KEPT CLEAN AND DRY ALL NEEDS MET WILL CONTINUE TO MONITOR.
[2021-07-01 20:23] LABS: HEMOGLOBIN 7.2 g/dL (11.5-14.8)
[2021-07-01] MEDS: PANTOPRAZOLE 40 MG VIAL IV SCH (21:19)
[2021-07-02 04:00] VITALS: BP_SYST 120; BP_SYST 135; BP_DIAS 68; BP_DIAS 86
[2021-07-02 04:39] LABS: HEMOGLOBIN 7.2 g/dL (11.5-14.8)
--- NOTE | 2021-07-02 06:47 | NUR ---
AUTO CLUTCH REBUILDER OPENING NOTES: PATIENT SLEEP IN BED COMFORTABLY AROUSABLE TO VERBAL STIMULI, BED IN LOW POSITION, CALL LIGHTS WITHIN REACH, NO COMPLAIN OF PAIN AND DISCOMFORT AT THIS TIME, ON TELE MONITORING SR-65 WITH IV LINE AT RAC#20 SL, PATIENT IS A/O X4 ABLE TO MAKE NEEDS KNOWN, AMBULATORY WITH SUPERVISION, PATIENT KEPT CLEAN AND DRY ALL NEEDS MET ENDORSE TO INCOMING SHIFT
--- NOTE | 2021-07-02 07:26 | NUR ---
RN NOTES PATIENT RESTING IN BED EYES CLOSED, NOT IN ACUTE DISTRESS. VERBALLY RESPONSIVE, STATES THAT SHE STILL WANTS TO SLEEP. BREATHING EVEN AND UNLABORED, TOLERATING ROOM AIR. NO COMPLAINT OF PAIN AT THIS TIME. SAFETY MEASURES IN PLACE. WILL CONTINUE TO MONITOR.
[2021-07-02 08:00] VITALS: BP 147/96
[2021-07-02] MEDS: CHOLECALCIFEROL 1,000 UNIT TABLET (VIT D3) PO SCH (08:26)
[2021-07-02] MEDS: AMLODIPINE BESYLATE 10 MG TABLET PO SCH (08:27)
[2021-07-02] MEDS: ASPIRIN 81 MG TAB.CHEW PO SCH (08:27)
[2021-07-02] MEDS: PANTOPRAZOLE 40 MG VIAL IV SCH ×2 (08:27→20:54)
[2021-07-02 12:10] LABS: HEMOGLOBIN 7.6 g/dL (11.5-14.8)
--- NOTE | 2021-07-02 14:14 | NUR ---
RN NOTES SPOKE W/ PATIENT REGARDING CLORTHALIDONE MEDICATION; PER PATIENT, NO ONE IS ABLE TO BRING THE MEDICATION TO HER. PHARMACY MADE AWARE.
[2021-07-02] MEDS: SOD FERRIC GLUC 125 MG in IV NS 0.9% 100 ML IV SCH (14:34)
[2021-07-02 14:50] VITALS: BP 146/106
[2021-07-02 16:00] VITALS: BP 122/77
[2021-07-02] MEDS: ATORVASTATIN 10 MG TABLET PO SCH (17:31)
--- NOTE | 2021-07-02 18:28 | NUR ---
RN NOTES NEW IV LINE INSERTED ON LEFT HAND #20 INTACT AND PATENT.
[2021-07-02 19:53] VITALS: BP 126/71
--- NOTE | 2021-07-02 20:00 | NUR ---
CONCRETE FORM SETTER AND FINISHER OPENING NOTE PATIENT AWAKE IN BED WATCHING TV, ALERT/ORIENTED X 4, PATIENT ABLE TO MAKE NEEDS KNOWN, DENIES PAIN AT THIS TIME. PT STABLE ON RA, NO S/S OF DISTRESS OR SOB NOTED, BREATHING EVEN AND UNLABORED. PATIENT ON EXTERNAL AUTO RADIATOR MECHANIC READING SINUS RHYTHM, HR: 77. IV ACCESS ON LEFT HAND #20G INTACT AND SALINE LOCKED. PATIENT IS AMBULATORY TO BATHROOM. SAFETY MEASURES IN PLACE: CALL LIGHT WITHIN REACH, SIDE RAILS UP X 2, BED LOCKED IN LOW POSITION. WILL CONTINUE TO MONITOR PATIENT
[2021-07-02 20:29] LABS: HEMOGLOBIN 7.4 g/dL (11.5-14.8)
--- NOTE | 2021-07-03 04:29 | NUR ---
RN NOTE PER WHARFMASTER, THEY ATTEMPTED TO DRAW BLOOD X 3 TIMES BUT WERE UNSUCCESSFUL, PER PATIENT REQUEST THEY WILL COME BACK LATER TO TRY AGAIN
--- NOTE | 2021-07-03 07:25 | NUR ---
MS RN CLOSING NOTE PATIENT AWAKE IN BED WATCHING TV, ALERT/ORIENTED X 4, NO SIGNIFICANT CHANGES THROUGHOUT SHIFT. PT STABLE ON RA, NO S/S OF DISTRESS OR SOB NOTED, BREATHING EVEN AND UNLABORED. IV ACCESS ON LEFT HAND #20G INTACT AND SALINE LOCKED. MEDICATIONS GIVEN ORDERED, PT NEEDS MET THROUGHOUT SHIFT. SAFETY MEASURES IN PLACE: CALL LIGHT WITHIN REACH, SIDE RAILS UP X 2, BED LOCKED IN LOW POSITION. ENDORSED TO DAY SHIFT NURSE FOR CONTINUITY OF CARE
[2021-07-03 09:06] VITALS: BP 131/86
[2021-07-03] MEDS: AMLODIPINE BESYLATE 10 MG TABLET PO SCH (09:06)
[2021-07-03] MEDS: ASPIRIN 81 MG TAB.CHEW PO SCH (09:06)
[2021-07-03] MEDS: PANTOPRAZOLE 40 MG VIAL IV SCH (09:06)
[2021-07-03] MEDS: CHOLECALCIFEROL 1,000 UNIT TABLET (VIT D3) PO SCH (09:08)
[2021-07-03 09:14] LABS: HEMOGLOBIN 7.8 g/dL (11.5-14.8)
[2021-07-03] MEDS ORDERED: EPOETIN ALFA (10,000 UNIT) 10,000 UNIT/ML VIAL IV SCH (10:00)
[2021-07-03] MEDS ORDERED: CYAN1TAB17 PO (10:01)
--- NOTE | 2021-07-03 10:15 | NUR ---
RN NOTES PATIENT SEEN BY SARAH HOOVER NP, W/ ORDERS NOTED.
[2021-07-03] MEDS ORDERED: EPOETIN ALFA-EPBX 10,000 UNIT/ML VIAL IV ONE (11:00)
--- NOTE | 2021-07-03 12:13 | NUR ---
RN NOTES PROCRIT OBTAINED FROM PHARMACY AND ADMINISTERED TO PATIENT INDICATED.
[2021-07-03] MEDS: SOD FERRIC GLUC 125 MG in IV NS 0.9% 100 ML IV SCH (13:50)
[2021-07-03 14:37] LABS: HEMOGLOBIN 7.5 g/dL (11.5-14.8)
--- NOTE | 2021-07-03 14:48 | NUR ---
RN NOTES PER PATIENT, [place] [id number] [place] [address].
--- NOTE | 2021-07-03 15:10 | NUR ---
RN NOTES DISCHARGE INSTRUCTION AND EDUCATION PROVIDED TO PATIENT; VERBALIZED UNDERSTANDING. DISCHARGE FORM AND BELONGINGS LIST FORM SIGNED BY PATIENT AND ALL BELONGINGS GATHERED AND ACCOUNTED FOR BY DEPUTY PROSECUTING ATTORNEY ASSIGNED, CURRENTLY W/ PATIENT.
[2021-07-03] MEDS: ATORVASTATIN 10 MG TABLET PO SCH (17:05)
--- NOTE | 2021-07-03 17:33 | NUR ---
RN NOTES PERIPHERAL IV LINE REMOVED. NO BLEEDING NOTED.
--- NOTE | 2021-07-03 17:41 | NUR ---
RN NOTES TAXI VOUCHER OBTAINED FROM [facility]. VOUCHER# [id number], .
--- NOTE | 2021-07-03 18:15 | NUR ---
RN NOTES PATIENT ASSISTED TO THE LOBBY VIA WHEELCHAIR, BELONGINGS IN THE WALKER OF PATIENT. ROLL HANDLER AND RN W/ PATIENT. INFORMED SECURITY THAT [facility] WILL PHYSICIAN ASSISTANT SURGERY PATIENT AT FRONT LOBBY. TAXI VOUCHER LEFT WITH PATIENT AND COPY GIVEN BACK TO LABOR AND DELIVERY REGISTERED NURSE.
[2021-07-04] MEDS ORDERED: PANTOPRAZOLE 40 MG TABLET.DR PO SCH (07:30)
== END 2021-07-03 18:13 | disposition home or self-care (01) | DRG 663 ==
LOC: ER 13:17 → TRANSITION 18:08 → TELE 19:54
PROVIDERS: ADMIT Internal Medicine; ATTEND Nurse Practitioner Acute Care
PROC: 30233N1 Transfusion of Nonautologous Red Blood Cells into Peripheral Vein, Percutaneous Approach (ICD-10-PCS; principal; 2021-06-30)
DX: D50.9 Iron deficiency anemia, unspecified (principal); E83.51 Hypocalcemia; E66.9 Obesity, unspecified; E78.5 Hyperlipidemia, unspecified; R53.1 Weakness; I10 Essential (primary) hypertension; J44.9 Chronic obstructive pulmonary disease, unspecified; I25.10 Atherosclerotic heart disease of native coronary artery without angina pectoris; Z87.891 Personal history of nicotine dependence; F31.9 Bipolar disorder, unspecified; M81.0 Age-related osteoporosis without current pathological fracture; Z68.36 Body mass index [BMI] 36.0-36.9, adult; Z71.3 Dietary counseling and surveillance; Z20.822 Contact with and (suspected) exposure to COVID-19
CPT/HCPCS: 36415; 71045-TC; 80048-TC; 80053-TC; 80076-TC; 82728-TC; 83540-TC; 83735-TC; 83880; 84100-TC; 84484-TC; 85025-TC; 85027-TC; 85730-TC; 86850-TC; 87081-TC; 97116-TC; 97530-TC; C9113; C9803; G0378; J0885; J2916; J7030; J7050; P9016; Q9967

== ENCOUNTER 2022-02-25 14:36 | Emergency (ER) | payer OTHER ==
[~2022-02-25] VITALS: Ht 165.1 cm; Wt 97.5 kg
[~2022-02-25 14:36] MED LIST changes: +CYAN1TAB17 PO; +PRAV40TA3 PO
[2022-02-25 14:47] VITALS: BP 126/72
--- NOTE | 2022-02-25 14:55 | NUR ---
PATIENT DECIDED TO LEAVE AND REFUSED TO COME IN
== END 2022-02-25 15:11 | disposition left against medical advice (07) ==
LOC: ER 14:38
DX: Z53.21 Procedure and treatment not carried out due to patient leaving prior to being seen by health care provider (principal)

== ENCOUNTER 2024-04-03 15:35 | Emergency (ER) | payer MEDICARE, OTHER ==
[~2024-04-03] VITALS: Ht 165.1 cm; Wt 97.5 kg
[2024-04-03 18:23] LABS: BASOPHILS # (AUTO) 0.1 K/uL (0.0-0.2); BASOPHILS % (AUTO) 0.6 % (0.0-2.0); EOSINOPHILS # (AUTO) 0.2 K/uL (0.0-0.7); EOSINOPHILS % (AUTO) 2.6 % (0.0-6.0); HEMATOCRIT 35 % (33-45); HEMOGLOBIN 11.3 g/dL (11.5-14.8); LYMPHOCYTES # (AUTO) 1.7 K/uL (0.8-4.8); LYMPHOCYTES % (AUTO) 19.1 % (20.0-44.0); MEAN CORPUSCULAR HEMOGLOBIN 28 PG (26.0-33.0); MEAN CORPUSCULAR HGB CONC 32 g/dl (31.0-36.0); MEAN CORPUSCULAR VOLUME 87 fL (82-100); MONOCYTES # (AUTO) 0.9 K/uL (0.1-1.30); MONOCYTES % (AUTO) 9.8 % (2.0-12.0); NEUTROPHILS % (AUTO) 67.9 % (43.0-81.0); PLATELET COUNT (AUTO) 291 K/uL (150-450); RED BLOOD CELL COUNT(AUTO) 4.06 MIL/uL (4.0-5.2); RED CELL DISTRIBUTION WIDTH 14.6 % (11.5-15.0); WHITE BLOOD COUNT (AUTO) 8.8 K/uL (4.3-11.0)
[2024-04-03] MEDS: IV NS 0.9% 1,000 ML BAG IV ONE (18:24)
[2024-04-03 18:34] LABS: CALCIUM, SERUM 8.6 mg/dL (8.5-10.1); CREATININE 0.9 mg/dL (0.6-1.3); POTASSIUM 3.6 mmol/L (3.5-5.1)
[2024-04-03 18:40] LABS: ALBUMIN 3.5 g/dL (3.4-5.0); BILIRUBIN,TOTAL 0.2 mg/dL (0.2-1.0); TOTAL PROTEIN, SERUM 7.3 g/dL (6.4-8.2)
[2024-04-03 18:42] LABS: INR 0.99 (0.91-1.10); PARTIAL THROMBOPLASTIN TIME 21.7 SEC (24.3-34.3); PROTHROMBIN TIME 10.5 SECS (9.2-11.1)
[2024-04-03 23:35] VITALS: BP 138/74; TEMP 98.5; O2SAT 98
== END 2024-04-03 23:36 | disposition home or self-care (01) ==
LOC: ER 15:37
DX: J06.9 Acute upper respiratory infection, unspecified (principal); E86.0 Dehydration; B97.89 Other viral agents as the cause of diseases classified elsewhere; E66.9 Obesity, unspecified; F17.200 Nicotine dependence, unspecified, uncomplicated; F25.9 Schizoaffective disorder, unspecified; I10 Essential (primary) hypertension; M81.0 Age-related osteoporosis without current pathological fracture; Z79.82 Long term (current) use of aspirin; Z90.89 Acquired absence of other organs
CPT/HCPCS: 99283; 96360; 85025; 85610; 85730; 36415; 80053; 86850; J7030